=== PATIENT | female | born 1950 | race Caucasian/White ===

== ENCOUNTER 2021-11-03 19:45 | Inpatient (IN) | payer MEDICARE ==
[~2021-11-03] VITALS: Ht 157.5 cm; Wt 58.5 kg
[2021-11-03] MEDS ORDERED: IV NORMAL SALINE 1000ML BAG 1,000 ML IV ONE (20:00)
--- NOTE | 2021-11-03 20:33 | PHYS DOC ---
Past Medical History Additional Past Medical Histor: SCOLIOSIS (ALANNA BURCH APRN) Past Surgical History: Other Additional Past Surgical Histo: PATIENT WILL NOT ANSWER QUESTIONS (ALANNA BURCH APRN) Smoking Status: Unknown if ever smoked Alcohol Use: None Drug Use: None (ALANNA BURCH APRN) General Adult EDM: Chief Complaint: WEAKNESS/GENERALIZED HPI: HPI: Patient is a 70-year-old female who presents today via [facility] for weakness. According to EMS the neighbors had called 911 for a wellness check of this patient, they states that she lives at home with her 43-year-old son who has disabled, and they had not seen her for a while, EMS states the house was incredibly filthy trash and the patient was very unkept. According to the patient who is reluctant to answer questions she has been unable to get herself up out of bed, or do any basic ADLs. Nurses spent at least 45 minutes cleaning the patient up due to the urine and feces that was on the patient. Patient has multiple areas of pressure ulcers, she also has some generalized weakness and she states she is unable to get up. Patient reports the only past medical history she has is scoliosis, she states she does not know who her primary care physician is nor when she saw her last. (ALANNA BURCH VALIDATION ANALYST) Review of Systems: Review of Systems: Constitutional: Denies fever or chills. [] Eyes: Denies change in visual acuity. [] HENT: Denies nasal congestion or sore throat. [] Respiratory: Denies cough or shortness of breath. [] Cardiovascular: Denies chest pain or edema. [] GI: Denies abdominal pain, nausea, vomiting, bloody stools or diarrhea. [] : Denies dysuria. [] Musculoskeletal: Generalized weakness Integument: Denies rash. [] Neurologic: Denies headache, focal weakness or sensory changes. [] Endocrine: Denies polyuria or polydipsia. [] Lymphatic: Denies swollen glands. [] Psychiatric: Denies depression or anxiety. [] (ALANNA BURCH APRN) Heart Score: C/O Chest Pain: No Risk Factors: Risk Factors: DM, Current or recent (<one month) smoker, HTN, HLP, family history of CAD, obesity. Risk Scores: Score 0 - 3: 2.5% MACE over next 6 weeks - Discharge Home Score 4 - 6: 20.3% MACE over next 6 weeks - Admit for Clinical Observation Score 7 - 10: 72.7% MACE over next 6 weeks - Early Invasive Strategies (ALANNA BURCH APRN) Current Medications: Current Medications Medications (Trade) Dose Ordered Sig/Kaleigh Start Time Stop Time Status Last Admin Dose Admin Sodium Chloride 1,000 ml @ 999 mls/hr 1X ONCE 11/03/21 20:00 11/03/21 21:00 UNV (ALANNA BRUCH APRN) Physical Exam: PE: Constitutional: Frail elderly appearing female in moderate distress with unkept HENT: Normocephalic, atraumatic, bilateral external ears normal, oropharynx dry, no oral exudates, nose normal. [] Eyes: PERRLA, EOMI, conjunctiva normal, no discharge. [] Neck: Normal range of motion, no tenderness, no stridor. [] Cardiovascular:Heart rate regular rhythm, no murmur [] Lungs & Thorax: Bilateral breath sounds clear to auscultation [] Abdomen: Bowel sounds normal, soft, no tenderness, no masses, no pulsatile m asses. [] Skin: Patient has multiple areas on her body of pressure wound she has 1 on her right upper arm, her back area has multiple areas of pressure wounds that are not early stages they do not john with pressure, her FAREED area is excoriated and red and bleeding after being cleaned up from dried feces and urine, her feet have skin that was peeled away when they took off her socks, that is oozing. Back: No tenderness, no CVA tenderness. [] Extremities: Patient moves all extremities she has 2+ pitting edema in her legs up to mid mid calf, 1+ peripheral pulses patient's muscle tone is poor Neurologic: Alert and oriented X 3, normal motor function, normal sensory functi on, no focal deficits noted. [] Psychologic: Affect normal, judgement normal, mood normal. [] (ALANNA BURCH APRN) Current Patient Data: Labs: Laboratory Tests Test 11/03/21 20:28 White Blood Count 7.2 x10^3/uL Red Blood Count 3.18 x10^6/uL Hemoglobin 6.2 g/dL Hematocrit 20.2 % Mean Corpuscular Volume 63 fL Mean Corpuscular Hemoglobin 19 pg Mean Corpuscular Hemoglobin Concent 31 g/dL Red Cell Distribution Width 19.1 % Platelet Count 627 x10^3/uL Neutrophils (%) (Auto) 78 % Lymphocytes (%) (Auto) 14 % Monocytes (%) (Auto) 7 % Eosinophils (%) (Auto) 1 % Basophils (%) (Auto) 1 % Neutrophils # (Auto) 5.6 x10^3/uL Lymphocytes # (Auto) 1.0 x10^3/uL Monocytes # (Auto) 0.5 x10^3/uL Eosinophils # (Auto) 0.1 x10^3/uL Basophils # (Auto) 0.1 x10^3/uL Platelet Estimate Increased Hypochromasia Marked Poikilocytosis Slight Anisocytosis Slight Microcytosis Marked Sodium Level 141 mmol/L Potassium Level 4.1 mmol/L Chloride Level 107 mmol/L Carbon Dioxide Level 21 mmol/L Anion Gap 13 Blood Urea Nitrogen 60 mg/dL Creatinine 2.3 mg/dL Estimated GFR (Cockcroft-Gault) 20.9 BUN/Creatinine Ratio 26 Glucose Level 67 mg/dL Lactic Acid Level 1.4 mmol/L Calcium Level 9.0 mg/dL Total Bilirubin 0.2 mg/dL Aspartate Amino Transf (AST/SGOT) 21 U/L Alanine Aminotransferase (ALT/SGPT) 11 U/L Alkaline Phosphatase 62 U/L Creatine Kinase 191 U/L Troponin I High Sensitivity 13 ng/L [id number]-Type Natriuretic Peptide 1072 pg/mL Total Protein 6.7 g/dL Albumin 2.3 g/dL Albumin/Globulin Ratio 0.5 Current Medications Medications (Trade) Dose Ordered Sig/Kaleigh Route PRN Reason Start Time Stop Time Status Last Admin Dose Admin Sodium Chloride 1,000 ml @ 999 mls/hr 1X ONCE IV 11/03/21 20:00 11/03/21 21:31 DC Sodium Chloride 1,000 ml @ 75 mls/hr [id number] IV 11/03/21 22:00 11/04/21 21:59 Vital Signs: Vital Signs Date Time Temp Pulse Resp B/P (MAP) Pulse Ox O2 Delivery O2 Flow Rate FiO2 11/03/21 20:01 98.8 74 16 137/67 (90) 99 Room Air 98.8 Vital Signs Date Time Temp Pulse Resp B/P (MAP) Pulse Ox O2 Delivery O2 Flow Rate FiO2 11/03/21 20:01 98.8 74 16 137/67 (90) 99 Room Air 98.8 (ALANNA BURCH APRN) EKG: EKG: [] (ALANNA BURCH APRN) Radiology/Procedures: Radiology/Procedures: REASON: weakness, DIFFICULTY COOPERATING, UNABLE TO LAY ON BACK PROCEDURE: CT HEAD WO CONTRAST Exam: CT head INDICATION: Weakness, difficulty TECHNIQUE: Sequential axial images through the head were obtained without the administration of IV contrast. Exposure: One or more of the following in the visualized dose reduction techniques were utilized for this examination: 1. Automated exposure control 2. Adjustment of the MA and/or KV according to patient size 3. Use of iterative of reconstructive technique Comparisons: None FINDINGS: No focal parenchymal lesion or hemorrhage is identified. There is no midline shift or sulcal effacement. No acute vascular territory infarction is identified. Dillon-white distinction is preserved. The ventricular system is within normal limits without compression hy drocephalus. The basal cisterns are well maintained. The visualized portions of the paranasal sinuses and mastoid air cells are well- pneumatized. No acute fractures. IMPRESSION: No acute intracranial abnormality. Electronically signed by: Justin Oliveros MD (11/03/2021 9:40 PM) HAYDE[] REASON: weakness PROCEDURE: PORTABLE CHEST 1V Exam: Chest one view INDICATION: Weakness, pain TECHNIQUE: Frontal view of the chest Comparisons: None FINDINGS: The cardiomediastinal silhouette and pulmonary vessels are within normal limits. Patchy airspace disease at the right lung base. No pleural effusion IMPRESSION: Right basilar airspace disease. Electronically signed by: Justin Oliveros MD (11/03/2021 10:22 PM) AMRYALEC (ALANNA BURCH APRN) Course & Med Decision Making: Course & Med Decision Making Pertinent Labs and Imaging studies reviewed. (See chart for details) [address] Sherwood regarding this patient and he is agreeable to admitting this patient for further evaluation and management of her anemia, her acute renal injury and failure to thrive. (ALANNA BURCH APRN) Dragon Disclaimer: Dragon Disclaimer: This electronic medical record was generated, in whole or in part, using a voice recognition dictation system. (ALANNA BURCH APRN) Departure Departure Impression: Primary Impression: Anemia Qualified Codes: D64.9 - Anemia, unspecified Additional Impressions: Acute renal injury Failure to thrive in adult Weakness generalized Disposition: ADMITTED INPATIENT Admitting Physician: TIANNA (ALANNA BURCH APRN) Condition: STABLE Attending Signature Attending Signature I have reviewed the PA/ADDICTIONS COUNSELOR's note and plan of care. I was available for consultation as needed during the patient's visit in the emergency department. I agree with the clinical impression, plan, and disposition. (NEEL BLUE DO) ALANNA BURCH APRN November 03, 2021 20:33 NEEL BLUE DO November 03, 2021 23:58
[2021-11-03 20:41] LABS: BASO # 0.1 x10^3/uL (0.0-0.2); BASO % 1 % (0-3); EOS # 0.1 x10^3/uL (0.0-0.7); EOS % 1 % (0-3); HEMATOCRIT 20.2 % (36.0-47.0); LYMPH % 14 % (24-48); MEAN CORPUSCULAR HEMOGLOBIN 19 pg (25-35); MEAN CORPUSCULAR HGB CONC 31 g/dL (31-37); MEAN CORPUSCULAR VOLUME 63 fL (79-100); MONO # 0.5 x10^3/uL (0.0-1.1); MONO % 7 % (0-9); NEUT # 5.6 x10^3/uL (1.8-7.7); NEUT % 78 % (31-73); PLATELET COUNT 627 x10^3/uL (140-400); RED BLOOD COUNT 3.18 x10^6/uL (3.50-5.40); RED CELL DISTRIBUTION WIDTH 19.1 % (11.5-14.5); WHITE BLOOD COUNT 7.2 x10^3/uL (4.0-11.0)
[2021-11-03 20:46] LABS: HEMOGLOBIN 6.2 g/dL (12.0-15.5)
[2021-11-03 20:51] LABS: CREATININE 2.3 mg/dL (0.6-1.0); GFR 20.9; POTASSIUM 4.1 mmol/L (3.5-5.1)
[2021-11-03 20:58] LABS: ALBUMIN 2.3 g/dL (3.4-5.0); ALBUMIN/GLOBULIN RATIO 0.5 (1.0-1.7); TOTAL BILIRUBIN 0.2 mg/dL (0.2-1.0); TOTAL PROTEIN 6.7 g/dL (6.4-8.2)
[2021-11-03 20:59] LABS: ANISOCYTOSIS SLIGHT; HYPOCHROMIA MARKED; MICROCYTOSIS MARKED; PLT ESTIMATE INCREASED (ADEQUATE); POIKILOCYTOSIS SLIGHT
--- NOTE | 2021-11-03 21:42 | RAD ---
Exam: CT head INDICATION: Weakness, difficulty TECHNIQUE: Sequential axial images through the head were obtained without the administration of IV co ntrast. Exposure: One or more of the following in the visualized dose reduction techniques were utilized for this examination: 1. Automated exposure control 2. Adjustment of the MA and/or KV according to patient size 3. Use of iterative of reconstructive technique Comparisons: None FINDINGS: No focal parenchymal lesion or hemorrhage is identified. There is no midline shift or sulcal effaceme nt. No acute vascular territory infarction is identified. Dillon-white distinction is preserved. The ventricular system is within normal limits without compression hydrocephalus. The basal cisterns are well maintained. The visualized portions of the paranasal sinuses and mastoid air cells are well-pneumatized. No acute fractures. IMPRESSION: No acute intracranial abnormality. Electronically signed by: Justin Oliveros MD (11/03/2021 9:40 PM) HAYDE
--- NOTE | 2021-11-03 22:24 | RAD ---
Exam: Chest one view INDICATION: Weakness, pain TECHNIQUE: Frontal view of the chest Comparisons: None FINDINGS: The cardiomediastinal silhouette and pulmonary vessels are within normal limits. Patchy airspace disease at the right lung base. No pleural effusion IMPRESSION: Right basilar airspace disease. Electronically signed by: Justin Oliveros MD (11/03/2021 10:22 PM) HAYDE
[2021-11-03 22:45] LABS: PROTHROMBIN TIME PATIENT 14.2 SEC (11.7-14.0)
[2021-11-03] MEDS ORDERED: cefTRIAXone IV Push 1 GM VIAL. IVP ONE (23:00)
--- NOTE | 2021-11-03 23:48 | EKG ---
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
[2021-11-04] MEDS: IV NORMAL SALINE 1000ML BAG 1,000 ML IV SCH ×2 (01:46→13:12)
[2021-11-04] MEDS ORDERED: [UNRECOGNIZED DRUG - CODE] PO (02:03)
[2021-11-04 02:30] VITALS: BP 131/84
[2021-11-04 07:00] VITALS: BP 119/69
[2021-11-04] MEDS: oxyCODONE/APAP 5/325 1 TAB TABLET PO PRN ×2 (10:44→22:13)
[2021-11-04] MEDS ORDERED: ELECTROLYTE (NON-ICU) PROTOCOL. MC PRN (10:45)
[2021-11-04 11:00] VITALS: BP 110/57
[2021-11-04 11:49] LABS: BASO # 0.1 x10^3/uL (0.0-0.2); BASO % 1 % (0-3); EOS # 0.1 x10^3/uL (0.0-0.7); EOS % 2 % (0-3); HEMATOCRIT 22.3 % (36.0-47.0); HEMOGLOBIN 7.1 g/dL (12.0-15.5); LYMPH # 0.7 x10^3/uL (1.0-4.8); LYMPH % 9 % (24-48); MEAN CORPUSCULAR HEMOGLOBIN 21 pg (25-35); MEAN CORPUSCULAR HGB CONC 32 g/dL (31-37); MEAN CORPUSCULAR VOLUME 66 fL (79-100); MONO # 0.4 x10^3/uL (0.0-1.1); MONO % 6 % (0-9); NEUT # 6.6 x10^3/uL (1.8-7.7); NEUT % 83 % (31-73); PLATELET COUNT 534 x10^3/uL (140-400); RED BLOOD COUNT 3.38 x10^6/uL (3.50-5.40); RED CELL DISTRIBUTION WIDTH 22.3 % (11.5-14.5)
[2021-11-04 12:03] LABS: ALBUMIN 1.9 g/dL (3.4-5.0); ALBUMIN/GLOBULIN RATIO 0.5 (1.0-1.7); CREATININE 2.4 mg/dL (0.6-1.0); GFR 19.9; POTASSIUM 4.2 mmol/L (3.5-5.1); TOTAL BILIRUBIN 0.2 mg/dL (0.2-1.0); TOTAL PROTEIN 5.7 g/dL (6.4-8.2)
--- NOTE | 2021-11-04 12:32 | PDOC2 ---
CONSULT Date of Consult Date of Consult DATE: 11/04/21 TIME: 12:19 Reason for Consult Reason for Consult: Acute renal injury Referring Physician Referring Physician: Kalina Identification/Chief Complaint Chief Complaint Patient cannot relate Source Source: Chart review History of Present Illness Reason for Visit: Patient is 70-year-old female who apparently has not seen physicians in a while. She does not know why she was brought to the hospital but said she was having difficulty getting around. I have reviewed the ER note which shows that she was brought by [facility] for weakness. Neighbors had called a wellness check since she lives with her 43-year-old disabled son. And EMS arrived she was unable to get up off the floor was extremely weak and unkempt. She is noted to have multiple areas of pressure sores. She claims she takes ibuprofen and Tylenol at times. She is not very cooperative with the history at this time and is more preoccupied with eating her lunch. She cannot tell me when she last had labs done. She was admitted h ere with a creatinine of 2.4 BUN of 50 and an albumin of 1.9. She is not known to have any kidney problems that she relates at this time Past Medical History Past Medical History Scoliosis and arthritis Past Surgical History Past Surgical History Patient does not relate any prior surgeries Family History Family History Patient does not relate any known family history of kidney issues Social History Lives: with Family Current Problem List Problem List Problems Medical Problems: (1) Acute renal injury Status: Acute (2) Anemia Status: Acute (3) Failure to thrive in adult Status: Acute (4) Weakness generalized Status: Acute Current Medications Current Medications Current Medications Sodium Chloride 1,000 ml @ 999 mls/hr 1X ONCE IV Last administered on 11/03/21at 21:00; Start 11/03/21 at 20:00; Stop 11/03/21 at 21:31; Status DC Sodium Chloride 1,000 ml @ 75 mls/hr [id number] IV Last administered on 11/04/21at 01:46; Start 11/03/21 at 22:00; Stop 11/04/21 at 21:59 Ceftriaxone Sodium (Rocephin) 1 gm 1X ONCE IVP Last administered on 11/04/21at 01:46; Start 11/03/21 at 23:00; Stop 11/03/21 at 23:01; Status DC Ceftriaxone Sodium (Rocephin) 1 gm Q24H IVP ; Start 11/04/21 at 11:00 Doxycycline Hyclate (Vibra-Tab) 100 mg BID PO ; Start 11/04/21 at 11:00 Ondansetron HCl (Zofran) 4 mg PRN Q6HRS PRN IVP NAUSEA/VOMITING; Start 11/04/21 at 10:45 Calcium Carbonate/ Glycine (Tums) 500 mg PRN Q3HRS PRN PO UPSET STOMACH; Start 11/04/21 at 10:45 Info (Non-Icu Electrolyte Protocol) 1 ea PRN DAILY PRN MC SEE COMMENTS; Start 11/04/21 at 10:45 Oxycodone/ Acetaminophen (Percocet 5/325) 1 tab PRN Q4HRS PRN PO MILD PAIN, 1ST CHOICE Last administered on 11/04/21at 10:44; Start 11/04/21 at 10:45 Oxycodone/ Acetaminophen (Percocet 5/325) 2 tab PRN Q4HRS PRN PO MODERATE PAIN, SEVERE PAIN; Start 11/04/21 at 10:45 Acetaminophen (Tylenol) 650 mg PRN Q6HRS PRN PO Headaches, Temp > 101.5F; Sta rt 11/04/21 at 10:45 Senna/Docusate Sodium (Senna Plus) 1 tab BID PO ; Start 11/04/21 at 11:00 Active Scripts Active Reported Advil Dual Action 250Mg-125Mg (Ibuprofen/Acetaminophen) 1 Each Tablet 1 Each PO TID PRN PRN Allergies Allergies: Coded Allergies: No Known Drug Allergies (Unverified , 11/04/21) ROS Review of System Unable to reliably obtain from the patient given lack of cooperation with history. She however denies nausea vomiting or diarrhea per se. Physical Exam Physical Exam General Appearance: Awake Alert Oriented x ? In no Distress, thin and cachectic white female Eyes: VIsion Unchanged Conjunctiva Normal EN: No EN Drainage Mucous Memb. moist (eating/being fed lunch) Neck: min JVD + JVP Supple no palpable thyromegaly CVS: S1 S2 possible murmur No Gallop No Rub + Edema Resp: no Rales no Rhonchi no Acc. Muscle use GI: BAS +ve NO Bruit Non Tender Non Distended : no CVA tenderness; no Suprapubic Tenderness SKIN: no petechial rashes Breast Exam deferred Mu.Sk: Limited ROM, presumed decreased strength significant muscle Atrophy Heme: Unable to palpate Obvious LAD no palpable splenomegaly NEURO: Decreased strength, adequate Tone Cranial Nerves II - XII grossly intact as best as I could tell given limited cooperation Psych: ? Depressed no Active hallucination Vital Signs Vital Signs Date Time Temp Pulse Resp B/P (MAP) Pulse Ox O2 Delivery O2 Flow Rate FiO2 11/04/21 10:44 96 Room Air 11/04/21 07:00 97.7 83 18 119/69 (86) 97.7 Assessment & Plan Presumed acute kidney injury. Will check sonogram and UA specimen. She remains on IV fluids at this time current FLuid and E-lyte status does not necessitate emergent need for Dialysis. CPK was normal as noted. NSAIDs may have contributed Intravascular volume depletion cannot be ruled out IV fluids will be ordered. May need IV albumin also Severe hypoalbuminemia we will check urine for nephrotic syndrome Severe anemia at presentation: May need evaluation for underlying malignancy. Consider hematology and/or GI evaluation given severe microcytosis. Presume iron deficiency anemia Labs Labs Laboratory Tests Test 11/03/21 20:28 11/03/21 22:20 11/04/21 11:35 White Blood Count 7.2 x10^3/uL (4.0-11.0) 8.0 x10^3/uL (4.0-11.0) Red Blood Count 3.18 x10^6/uL (3.50-5.40) 3.38 x10^6/uL (3.50-5.40) Hemoglobin 6.2 g/dL (12.0-15.5) 7.1 g/dL (12.0-15.5) Hematocrit 20.2 % (36.0-47.0) 22.3 % (36.0-47.0) Mean Corpuscular Volume 63 fL (79-100) 66 fL (79-100) Mean Corpuscular Hemoglobin 19 pg (25-35) 21 pg (25-35) Mean Corpuscular Hemoglobin Concent 31 g/dL (31-37) 32 g/dL (31-37) Red Cell Distribution Width 19.1 % (11.5-14.5) 22.3 % (11.5-14.5) Platelet Count 627 x10^3/uL (140-400) 534 x10^3/uL (140-400) Neutrophils (%) (Auto) 78 % (31-73) 83 % (31-73) Lymphocytes (%) (Auto) 14 % (24-48) 9 % (24-48) Monocytes (%) (Auto) 7 % (0-9) 6 % (0-9) Eosinophils (%) (Auto) 1 % (0-3) 2 % (0-3) Basophils (%) (Auto) 1 % (0-3) 1 % (0-3) Neutrophils # (Auto) 5.6 x10^3/uL (1.8-7.7) 6.6 x10^3/uL (1.8-7.7) Lymphocytes # (Auto) 1.0 x10^3/uL (1.0-4.8) 0.7 x10^3/uL (1.0-4.8) Monocytes # (Auto) 0.5 x10^3/uL (0.0-1.1) 0.4 x10^3/uL (0.0-1.1) Eosinophils # (Auto) 0.1 x10^3/uL (0.0-0.7) 0.1 x10^3/uL (0.0-0.7) Basophils # (Auto) 0.1 x10^3/uL (0.0-0.2) 0.1 x10^3/uL (0.0-0.2) Platelet Estimate Increased (ADEQUATE) Hypochromasia Marked Poikilocytosis Slight Anisocytosis Slight Microcytosis Marked Sodium Level 141 mmol/L (136-145) 142 mmol/L (136-145) Potassium Level 4.1 mmol/L (3.5-5.1) 4.2 mmol/L (3.5-5.1) Chloride Level 107 mmol/L (98-107) 110 mmol/L (98-107) Carbon Dioxide Level 21 mmol/L (21-32) 23 mmol/L (21-32) Anion Gap 13 (6-14) 9 (6-14) Blood Urea Nitrogen 60 mg/dL (7-20) 50 mg/dL (7-20) Creatinine 2.3 mg/dL (0.6-1.0) 2.4 mg/dL (0.6-1.0) Estimated GFR (Cockcroft-Gault) 20.9 19.9 BUN/Creatinine Ratio 26 (6-20) 21 (6-20) Glucose Level 67 mg/dL (70-99) 145 mg/dL (70-99) Lactic Acid Level 1.4 mmol/L (0.4-2.0) Calcium Level 9.0 mg/dL (8.5-10.1) 8.0 mg/dL (8.5-10.1) Total Bilirubin 0.2 mg/dL (0.2-1.0) 0.2 mg/dL (0.2-1.0) Aspartate Amino Transf (AST/SGOT) 21 U/L (15-37) 18 U/L (15-37) Alanine Aminotransferase (ALT/SGPT) 11 U/L (14-59) 12 U/L (14-59) Alkaline Phosphatase 62 U/L (46-116) 63 U/L (46-116) Creatine Kinase 191 U/L (26-192) Troponin I High Sensitivity 13 ng/L (4-50) BD-Yut-P-Type Natriuretic Peptide 1072 pg/mL (0-124) Total Protein 6.7 g/dL (6.4-8.2) 5.7 g/dL (6.4-8.2) Albumin 2.3 g/dL (3.4-5.0) 1.9 g/dL (3.4-5.0) Albumin/Globulin Ratio 0.5 (1.0-1.7) 0.5 (1.0-1.7) Prothrombin Time 14.2 SEC (11.7-14.0) Prothromb Time International Ratio 1.1 (0.8-1.1) Laboratory Tests Test 11/03/21 20:28 11/03/21 22:20 11/04/21 11:35 White Blood Count 7.2 x10^3/uL (4.0-11.0) 8.0 x10^3/uL (4.0-11.0) Red Blood Count 3.18 x10^6/uL (3.50-5.40) 3.38 x10^6/uL (3.50-5.40) Hemoglobin 6.2 g/dL (12.0-15.5) 7.1 g/dL (12.0-15.5) Hematocrit 20.2 % (36.0-47.0) 22.3 % (36.0-47.0) Mean Corpuscular Volume 63 fL (79-100) 66 fL (79-100) Mean Corpuscular Hemoglobin 19 pg (25-35) 21 pg (25-35) Mean Corpuscular Hemoglobin Concent 31 g/dL (31-37) 32 g/dL (31-37) Red Cell Distribution Width 19.1 % (11.5-14.5) 22.3 % (11.5-14.5) Platelet Count 627 x10^3/uL (140-400) 534 x10^3/uL (140-400) Neutrophils (%) (Auto) 78 % (31-73) 83 % (31-73) Lymphocytes (%) (Auto) 14 % (24-48) 9 % (24-48) Monocytes (%) (Auto) 7 % (0-9) 6 % (0-9) Eosinophils (%) (Auto) 1 % (0-3) 2 % (0-3) Basophils (%) (Auto) 1 % (0-3) 1 % (0-3) Neutrophils # (Auto) 5.6 x10^3/uL (1.8-7.7) 6.6 x10^3/uL (1.8-7.7) Lymphocytes # (Auto) 1.0 x10^3/uL (1.0-4.8) 0.7 x10^3/uL (1.0-4.8) Monocytes # (Auto) 0.5 x10^3/uL (0.0-1.1) 0.4 x10^3/uL (0.0-1.1) Eosinophils # (Auto) 0.1 x10^3/uL (0.0-0.7) 0.1 x10^3/uL (0.0-0.7) Basophils # (Auto) 0.1 x10^3/uL (0.0-0.2) 0.1 x10^3/uL (0.0-0.2) Platelet Estimate Increased (ADEQUATE) Hypochromasia Marked Poikilocytosis Slight Anisocytosis Slight Microcytosis Marked Sodium Level 141 mmol/L (136-145) 142 mmol/L (136-145) Potassium Level 4.1 mmol/L (3.5-5.1) 4.2 mmol/L (3.5-5.1) Chloride Level 107 mmol/L (98-107) 110 mmol/L (98-107) Carbon Dioxide Level 21 mmol/L (21-32) 23 mmol/L (21-32) Anion Gap 13 (6-14) 9 (6-14) Blood Urea Nitrogen 60 mg/dL (7-20) 50 mg/dL (7-20) Creatinine 2.3 mg/dL (0.6-1.0) 2.4 mg/dL (0.6-1.0) Estimated GFR (Cockcroft-Gault) 20.9 19.9 BUN/Creatinine Ratio 26 (6-20) 21 (6-20) Glucose Level 67 mg/dL (70-99) 145 mg/dL (70-99) Lactic Acid Level 1.4 mmol/L (0.4-2.0) Calcium Level 9.0 mg/dL (8.5-10.1) 8.0 mg/dL (8.5-10.1) Total Bilirubin 0.2 mg/dL (0.2-1.0) 0.2 mg/dL (0.2-1.0) Aspartate Amino Transf (AST/SGOT) 21 U/L (15-37) 18 U/L (15-37) Alanine Aminotransferase (ALT/SGPT) 11 U/L (14-59) 12 U/L (14-59) Alkaline Phosphatase 62 U/L (46-116) 63 U/L (46-116) Creatine Kinase 191 U/L (26-192) Troponin I High Sensitivity 13 ng/L (4-50) VR-Pet-P-Type Natriuretic Peptide 1072 pg/mL (0-124) Total Protein 6.7 g/dL (6.4-8.2) 5.7 g/dL (6.4-8.2) Albumin 2.3 g/dL (3.4-5.0) 1.9 g/dL (3.4-5.0) Albumin/Globulin Ratio 0.5 (1.0-1.7) 0.5 (1.0-1.7) Prothrombin Time 14.2 SEC (11.7-14.0) Prothromb Time International Ratio 1.1 (0.8-1.1) Review All relevant outside records, renal labs, imaging studies, telemetry/EKG's were reviewed. Images Images FINDINGS: The cardiomediastinal silhouette and pulmonary vessels are within normal limits. Patchy airspace disease at the right lung base. No pleural effusion IMPRESSION: Right basilar airspace disease. DILCIA TIPTON MD November 04, 2021 12:32
[2021-11-04] MEDS ORDERED: MAGNESIUM SULFATE 2GM 50 ML IV PRN (12:45)
[2021-11-04] MEDS: DOXYCYCLINE HYCLATE 100 MG TABLET PO SCH ×2 (13:05→22:12)
[2021-11-04] MEDS: SENNOSIDES/DOCUSATE 8.6/50MG TABLET. PO SCH ×2 (13:05→22:13)
[2021-11-04] MEDS: cefTRIAXone IV Push 1 GM VIAL. IVP SCH (13:07)
--- NOTE | 2021-11-04 13:28 | PDOC1 ---
History and Physical Date of Service: DOS: DATE: 11/04/21 TIME: 13:08 Chief Complaint: Chief Complain: Anemia, FTT History of Present Illness: HPI: Patient really not giving any sort of meaningful history to me this morning HPI from emergency room below Patient is a 70-year-old female who presents today via [facility] for weakness. According to EMS the neighbors had called 911 for a wellness check of this patient, they states that she lives at home with her 43-year-old son who has disabled, and they had not seen her for a while, EMS states the house was incredibly filthy trash and the patient was very unkept. According to the patient who is reluctant to answer questions she has been unable to get herself up out of bed, or do any basic ADLs. Nurses spent at least 45 minutes cleaning the patient up due to the urine and feces that was on the patient. Patient has multiple areas of pressure ulcers, she also has some generalized weakness and she states she is unable to get up. Patient reports the only past medical history she has is scoliosis, she states she does not know who her primary care physician is nor when she saw her last. When I saw the patient she was very withdrawn. Really not answering my questions she is looking out the window. Really would say her hip hurt. Informed her of plan of treating with IV antibiotics therapy. Said she would think about if she would go to rehab if recommended. Past Medical/Surgical History: PMH/PSH: Additional Past Medical Histor: SCOLIOSIS Additional Past Surgical Histo: PATIENT WILL NOT ANSWER QUESTIONS Smoking Status: denies Alcohol Use: None Drug Use: Non Allergies: Allergies: Coded Allergies: No Known Drug Allergies (Unverified , 11/04/21) Family History: Family History: patient denies knowing of any Current Medications: Current Medications Current Medications Sodium Chloride 1,000 ml @ 999 mls/hr 1X ONCE IV Last administered on 11/03/21at 21:00; Start 11/03/21 at 20:00; Stop 11/03/21 at 21:31; Status DC Sodium Chloride 1,000 ml @ 75 mls/hr [id number] IV Last administered on 11/04/21at 01:46; Start 11/03/21 at 22:00; Stop 11/04/21 at 21:59 Ceftriaxone Sodium (Rocephin) 1 gm 1X ONCE IVP Last administered on 11/04/21at 01:46; Start 11/03/21 at 23:00; Stop 11/03/21 at 23:01; Status DC Ceftriaxone Sodium (Rocephin) 1 gm Q24H IVP ; Start 11/04/21 at 11:00 Doxycycline Hyclate (Vibra-Tab) 100 mg BID PO ; Start 11/04/21 at 11:00 Ondansetron HCl (Zofran) 4 mg PRN Q6HRS PRN IVP NAUSEA/VOMITING; Start 11/04/21 at 10:45 Calcium Carbonate/ Glycine (Tums) 500 mg PRN Q3HRS PRN PO UPSET STOMACH; Start 11/04/21 at 10:45 Info (Non-Icu Electrolyte Protocol) 1 ea PRN DAILY PRN MC SEE COMMENTS; Start 11/04/21 at 10:45 Oxycodone/ Acetaminophen (Percocet 5/325) 1 tab PRN Q4HRS PRN PO MILD PAIN, 1ST CHOICE Last administered on 11/04/21at 10:44; Start 11/04/21 at 10:45 Oxycodone/ Acetaminophen (Percocet 5/325) 2 tab PRN Q4HRS PRN PO MODERATE PAIN, SEVERE PAIN; Start 11/04/21 at 10:45 Acetaminophen (Tylenol) 650 mg PRN Q6HRS PRN PO Headaches, Temp > 101.5F; Start 11/04/21 at 10:45 Senna/Docusate Sodium (Senna Plus) 1 tab BID PO ; Start 11/04/21 at 11:00 Magnesium Sulfate 50 ml @ 25 mls/hr PRN DAILY PRN IV for Mag < 1.7 on am labs; Start 11/04/21 at 12:45 Active Scripts Active Reported Advil Dual Action 250Mg-125Mg (Ibuprofen/Acetaminophen) 1 Each Tablet 1 Each PO TID PRN PRN ROS: Review of Systems Review of System Other than hip pain patient refused to answer most questions Physical Exam: Vital Signs: Vital Signs Date Time Temp Pulse Resp B/P (MAP) Pulse Ox O2 Delivery O2 Flow Rate FiO2 11/04/21 11:00 99.4 74 20 110/57 (74) 95 Room Air 99.4 Physcial Exam: GEN: No apparent distress. Alert and oriented HEENT: Normal cephalic, atraumatic, external auditory canals are patent EYES: Extraocular muscles are intact, pupil are equally round and reactive to light and accommodation MUSCULOSKELETAL: Well developed , well nourished, good range of motion ENDOCRINE: No thyromegaly was palpated LYMPHATICS: No cervical chain or axillary nodes were noted HEMATOPOIETIC: No bruising NECK: Supple, no JVD, no thyromegaly was noted LUNGS: Clear to auscultation in all lung chapman without rhonchi or wheezing HEART: RRR, S!, S2 present. Peripheral pulses intact, no obvious murmurs noted ABDOMEN: Soft, nontender. Positive bowel sounds, no organomegaly, normal bowel sounds EXTREMITIES: Without clubbing, cyanosis, or edema. Pedal pulses intact. Negative Homans sign NEUROLOGIC: Normal speech and tone. A&O x 3, moves all extremities, no obvious focal deficits PSYCHIATRIC: Normal affect, normal mood. Stable SKIN: No ulcerations or rashes, good skin turgor, no jaundice VASCULAR: Good capillary refill, neurovascular bundle appears to be intact Labs: Labs: Laboratory Tests Test 11/03/21 20:28 11/03/21 22:20 11/04/21 11:35 White Blood Count 7.2 x10^3/uL (4.0-11.0) 8.0 x10^3/uL (4.0-11.0) Red Blood Count 3.18 x10^6/uL (3.50-5.40) 3.38 x10^6/uL (3.50-5.40) Hemoglobin 6.2 g/dL (12.0-15.5) 7.1 g/dL (12.0-15.5) Hematocrit 20.2 % (36.0-47.0) 22.3 % (36.0-47.0) Mean Corpuscular Volume 63 fL (79-100) 66 fL (79-100) Mean Corpuscular Hemoglobin 19 pg (25-35) 21 pg (25-35) Mean Corpuscular Hemoglobin Concent 31 g/dL (31-37) 32 g/dL (31-37) Red Cell Distribution Width 19.1 % (11.5-14.5) 22.3 % (11.5-14.5) Platelet Count 627 x10^3/uL (140-400) 534 x10^3/uL (140-400) Neutrophils (%) (Auto) 78 % (31-73) 83 % (31-73) Lymphocytes (%) (Auto) 14 % (24-48) 9 % (24-48) Monocytes (%) (Auto) 7 % (0-9) 6 % (0-9) Eosinophils (%) (Auto) 1 % (0-3) 2 % (0-3) Basophils (%) (Auto) 1 % (0-3) 1 % (0-3) Neutrophils # (Auto) 5.6 x10^3/uL (1.8-7.7) 6.6 x10^3/uL (1.8-7.7) Lymphocytes # (Auto) 1.0 x10^3/uL (1.0-4.8) 0.7 x10^3/uL (1.0-4.8) Monocytes # (Auto) 0.5 x10^3/uL (0.0-1.1) 0.4 x10^3/uL (0.0-1.1) Eosinophils # (Auto) 0.1 x10^3/uL (0.0-0.7) 0.1 x10^3/uL (0.0-0.7) Basophils # (Auto) 0.1 x10^3/uL (0.0-0.2) 0.1 x10^3/uL (0.0-0.2) Platelet Estimate Increased (ADEQUATE) Hypochromasia Marked Poikilocytosis Slight Anisocytosis Slight Microcytosis Marked Sodium Level 141 mmol/L (136-145) 142 mmol/L (136-145) Potassium Level 4.1 mmol/L (3.5-5.1) 4.2 mmol/L (3.5-5.1) Chloride Level 107 mmol/L (98-107) 110 mmol/L (98-107) Carbon Dioxide Level 21 mmol/L (21-32) 23 mmol/L (21-32) Anion Gap 13 (6-14) 9 (6-14) Blood Urea Nitrogen 60 mg/dL (7-20) 50 mg/dL (7-20) Creatinine 2.3 mg/dL (0.6-1.0) 2.4 mg/dL (0.6-1.0) Estimated GFR (Cockcroft-Gault) 20.9 19.9 BUN/Creatinine Ratio 26 (6-20) 21 (6-20) Glucose Level 67 mg/dL (70-99) 145 mg/dL (70-99) Lactic Acid Level 1.4 mmol/L (0.4-2.0) Calcium Level 9.0 mg/dL (8.5-10.1) 8.0 mg/dL (8.5-10.1) Total Bilirubin 0.2 mg/dL (0.2-1.0) 0.2 mg/dL (0.2-1.0) Aspartate Amino Transf (AST/SGOT) 21 U/L (15-37) 18 U/L (15-37) Alanine Aminotransferase (ALT/SGPT) 11 U/L (14-59) 12 U/L (14-59) Alkaline Phosphatase 62 U/L (46-116) 63 U/L (46-116) Creatine Kinase 191 U/L (26-192) Troponin I High Sensitivity 13 ng/L (4-50) [id number]-Type Natriuretic Peptide 1072 pg/mL (0-124) Total Protein 6.7 g/dL (6.4-8.2) 5.7 g/dL (6.4-8.2) Albumin 2.3 g/dL (3.4-5.0) 1.9 g/dL (3.4-5.0) Albumin/Globulin Ratio 0.5 (1.0-1.7) 0.5 (1.0-1.7) Prothrombin Time 14.2 SEC (11.7-14.0) Prothromb Time International Ratio 1.1 (0.8-1.1) Laboratory Tests Test 11/03/21 20:28 11/03/21 22:20 11/04/21 11:35 White Blood Count 7.2 x10^3/uL (4.0-11.0) 8.0 x10^3/uL (4.0-11.0) Red Blood Count 3.18 x10^6/uL (3.50-5.40) 3.38 x10^6/uL (3.50-5.40) Hemoglobin 6.2 g/dL (12.0-15.5) 7.1 g/dL (12.0-15.5) Hematocrit 20.2 % (36.0-47.0) 22.3 % (36.0-47.0) Mean Corpuscular Volume 63 fL (79-100) 66 fL (79-100) Mean Corpuscular Hemoglobin 19 pg (25-35) 21 pg (25-35) Mean Corpuscular Hemoglobin Concent 31 g/dL (31-37) 32 g/dL (31-37) Red Cell Distribution Width 19.1 % (11.5-14.5) 22.3 % (11.5-14.5) Platelet Count 627 x10^3/uL (140-400) 534 x10^3/uL (140-400) Neutrophils (%) (Auto) 78 % (31-73) 83 % (31-73) Lymphocytes (%) (Auto) 14 % (24-48) 9 % (24-48) Monocytes (%) (Auto) 7 % (0-9) 6 % (0-9) Eosinophils (%) (Auto) 1 % (0-3) 2 % (0-3) Basophils (%) (Auto) 1 % (0-3) 1 % (0-3) Neutrophils # (Auto) 5.6 x10^3/uL (1.8-7.7) 6.6 x10^3/uL (1.8-7.7) Lymphocytes # (Auto) 1.0 x10^3/uL (1.0-4.8) 0.7 x10^3/uL (1.0-4.8) Monocytes # (Auto) 0.5 x10^3/uL (0.0-1.1) 0.4 x10^3/uL (0.0-1.1) Eosinophils # (Auto) 0.1 x10^3/uL (0.0-0.7) 0.1 x10^3/uL (0.0-0.7) Basophils # (Auto) 0.1 x10^3/uL (0.0-0.2) 0.1 x10^3/uL (0.0-0.2) Platelet Estimate Increased (ADEQUATE) Hypochromasia Marked Poikilocytosis Slight Anisocytosis Slight Microcytosis Marked Sodium Level 141 mmol/L (136-145) 142 mmol/L (136-145) Potassium Level 4.1 mmol/L (3.5-5.1) 4.2 mmol/L (3.5-5.1) Chloride Level 107 mmol/L (98-107) 110 mmol/L (98-107) Carbon Dioxide Level 21 mmol/L (21-32) 23 mmol/L (21-32) Anion Gap 13 (6-14) 9 (6-14) Blood Urea Nitrogen 60 mg/dL (7-20) 50 mg/dL (7-20) Creatinine 2.3 mg/dL (0.6-1.0) 2.4 mg/dL (0.6-1.0) Estimated GFR (Cockcroft-Gault) 20.9 19.9 BUN/Creatinine Ratio 26 (6-20) 21 (6-20) Glucose Level 67 mg/dL (70-99) 145 mg/dL (70-99) Lactic Acid Level 1.4 mmol/L (0.4-2.0) Calcium Level 9.0 mg/dL (8.5-10.1) 8.0 mg/dL (8.5-10.1) Total Bilirubin 0.2 mg/dL (0.2-1.0) 0.2 mg/dL (0.2-1.0) Aspartate Amino Transf (AST/SGOT) 21 U/L (15-37) 18 U/L (15-37) Alanine Aminotransferase (ALT/SGPT) 11 U/L (14-59) 12 U/L (14-59) Alkaline Phosphatase 62 U/L (46-116) 63 U/L (46-116) Creatine Kinase 191 U/L (26-192) Troponin I High Sensitivity 13 ng/L (4-50) DN-Sov-L-Type Natriuretic Peptide 1072 pg/mL (0-124) Total Protein 6.7 g/dL (6.4-8.2) 5.7 g/dL (6.4-8.2) Albumin 2.3 g/dL (3.4-5.0) 1.9 g/dL (3.4-5.0) Albumin/Globulin Ratio 0.5 (1.0-1.7) 0.5 (1.0-1.7) Prothrombin Time 14.2 SEC (11.7-14.0) Prothromb Time International Ratio 1.1 (0.8-1.1) Assessment/Plan Assessment/Plan Right-sided pneumonia likely bacterial gram-negative, microcytic anemia likely CLAUDIA, adult failure to thrive, CHRISTIANO likely vasomotor, severe malnutrition. Reported history of scoliosis -Concerned neighbors called EMS for wellness check at home. Patient was found covered in feces urine -Brought into the emergency department. Found to be anemic kidney injury pneumonia -No apparent signs of bleeding. Received 1 unit packed red blood cells emergency room. Hemoglobin up to 7.1. Continue to monitor. -Iron studies showing iron deficiency anemia. With active infection we will hold off iron right now and plan to start once infection resolves -Creatinine elevated on presentation. Unknown baseline. Nephrology consult -PT/OT -Nutrition consult -DVT prophylaxis -Rocephin Doxy for presumed pneumonia. Justifications for Admission Other Justification ALMA MCCBAE MD November 04, 2021 13:28
[2021-11-04 15:00] VITALS: BP 84/48
--- NOTE | 2021-11-04 15:34 | RAD ---
EXAM: RENAL ULTRASOUND CLINICAL HISTORY: Acute renal failure/chronic kidney disease COMPARISON: None available. TECHNIQUE: Ultrasound examination of the bilateral kidneys and urinary bladder was performed. FINDINGS: The longitudinal and AP and transverse dimensions of the left kidney are 10.1 cm and 5.4 cm and 6.0 c m respectively. There is severe hydronephrosis of the left kidney. No perinephric fluid collection or renal mass is evident on the left side. The right kidney is not visualized in this study and this ma y be secondary to bowel gas and inferior displacement of the right kidney related to a large right lo be hepatic cyst measuring almost 11 cm in size. The urinary bladder is mildly distended. The lower portion of the urinary bladder is not well visuali zed due to acoustic shadowing. IMPRESSION: Severe hydronephrosis of the left kidney. Right kidney is not visualized in this study. Large almost 11 cm right hepatic cyst. Electronically signed by: Alex Abraham MD (11/04/2021 3:31 PM) [id number]
[2021-11-04 19:43] VITALS: BP 101/63
[2021-11-04] MEDS: LACTOBACILLUS RHAMNOSUS GG 1 CAPSULE. PO SCH (22:12)
[2021-11-04 23:26] VITALS: BP 114/68
[2021-11-05] VITALS (14 sets, daily range): BP systolic 81–124; BP diastolic 39–91
--- NOTE | 2021-11-05 04:02 | NUR ---
Patient informed of need for Stevenson placement, she initially refused, is encouraged to accept, as for the need for UA, culture, and see if she is fully emptying her bladder. The Stevenson was placed at 0335, without incident, milky, cloudy output, 700cc collected in the bag, sample is sent to lab. Stat Lock to left inner, upper thigh,
[2021-11-05 04:05] LABS: BACTERIA,URINE MANY /HPF (0-FEW); WBC,URINE TNTC /HPF (0-4)
[2021-11-05 08:23] LABS: ALBUMIN 1.8 g/dL (3.4-5.0); CALCIUM 7.6 mg/dL (8.5-10.1); GFR 24.6; PHOSPHORUS 2.8 mg/dL (2.6-4.7); POTASSIUM 3.8 mmol/L (3.5-5.1)
[2021-11-05] MEDS: LACTOBACILLUS RHAMNOSUS GG 1 CAPSULE. PO SCH ×2 (09:52→22:54)
[2021-11-05] MEDS: SENNOSIDES/DOCUSATE 8.6/50MG TABLET. PO SCH ×2 (09:52→22:53)
[2021-11-05] MEDS: DOXYCYCLINE HYCLATE 100 MG TABLET PO SCH ×2 (09:53→22:54)
[2021-11-05] MEDS: oxyCODONE/APAP 5/325 1 TAB TABLET PO PRN ×3 (09:53→22:54)
[2021-11-05] MEDS: cefTRIAXone IV Push 1 GM VIAL. IVP SCH (09:53)
--- NOTE | 2021-11-05 10:55 | PDOC ---
[employer] PROGRESS NOTE Date of Service DOS: DATE: 11/05/21 TIME: 10:49 Chief Complaint Chief Complaint Right-sided pneumonia likely bacterial gram-negative, microcytic anemia likely CLAUDIA, adult failure to thrive, CHRISTIANO likely vasomotor, severe malnutrition. Reported history of scoliosis -Concerned neighbors called EMS for wellness check at home. Patient was found covered in feces urine -Brought into the emergency department. Found to be anemic kidney injury pneumonia -No apparent signs of bleeding. Received 1 unit packed red blood cells emergency room. Hemoglobin up to 7.1. Continue to monitor. --> trended back to 6.6 on 11/05 still no signs of bleeding, transfuse 1U; recheck evening hgb; -Iron studies showing iron deficiency anemia. With active infection we will hold off iron right now and plan to start once infection resolves -Creatinine elevated on presentation. Unknown baseline. Nephrology consult --> showing left hydronephrosis on ultrasound, unable to visualize right kidney, will place IR consult to see if Neph tube is an option -PT/OT -Nutrition consult -DVT prophylaxis -Rocephin Doxy for presumed pneumonia.and UTI History of Present Illness History of Present Illness 11/05 Evaluated examined at bedside. Patient reported she was feeling "bad." Said she felt very "crunched up in her bed." Offered to help her boost up she declined. Declining many interventions. Creatinine a little bit improved renal sent from yesterday showing left hydronephrosis unable to visualize right kidney we will consult interventional radiology to see if neph tubes are an option. Nephrology recommendations reviewed. Continue antibiotics for pneumonia and UTI. Vitals/I&O Vitals/I&O: Vital Signs Date Time Temp Pulse Resp B/P (MAP) Pulse Ox O2 Delivery O2 Flow Rate FiO2 11/05/21 09:53 Room Air 11/05/21 07:00 98.5 73 16 123/75 (91) 94 98.5 I & O 11/04/21 11/04/21 11/05/21 15:00 23:00 07:00 Intake Total 390 ml 50 ml Output Total 650 ml Balance 390 ml -600 ml Physical Exam General: Alert, Oriented X3, moderate distress Heart: Regular rate, Normal S1, Normal S2 Lungs: Clear Abdomen: Normal bowel sounds, Soft, No tenderness Extremities: No edema, Normal pulses Skin: No significant lesion Labs Labs: Laboratory Tests Test 11/04/21 11:35 11/05/21 03:40 11/05/21 06:40 White Blood Count 8.0 x10^3/uL (4.0-11.0) Red Blood Count 3.38 x10^6/uL (3.50-5.40) Hemoglobin 7.1 g/dL (12.0-15.5) 6.6 g/dL (12.0-15.5) Hematocrit 22.3 % (36.0-47.0) Mean Corpuscular Volume 66 fL (79-100) Mean Corpuscular Hemoglobin 21 pg (25-35) Mean Corpuscular Hemoglobin Concent 32 g/dL (31-37) Red Cell Distribution Width 22.3 % (11.5-14.5) Platelet Count 534 x10^3/uL (140-400) Neutrophils (%) (Auto) 83 % (31-73) Lymphocytes (%) (Auto) 9 % (24-48) Monocytes (%) (Auto) 6 % (0-9) Eosinophils (%) (Auto) 2 % (0-3) Basophils (%) (Auto) 1 % (0-3) Neutrophils # (Auto) 6.6 x10^3/uL (1.8-7.7) Lymphocytes # (Auto) 0.7 x10^3/uL (1.0-4.8) Monocytes # (Auto) 0.4 x10^3/uL (0.0-1.1) Eosinophils # (Auto) 0.1 x10^3/uL (0.0-0.7) Basophils # (Auto) 0.1 x10^3/uL (0.0-0.2) Sodium Level 142 mmol/L (136-145) 144 mmol/L (136-145) Potassium Level 4.2 mmol/L (3.5-5.1) 3.8 mmol/L (3.5-5.1) Chloride Level 110 mmol/L (98-107) 113 mmol/L (98-107) Carbon Dioxide Level 23 mmol/L (21-32) 24 mmol/L (21-32) Anion Gap 9 (6-14) 7 (6-14) Blood Urea Nitrogen 50 mg/dL (7-20) 43 mg/dL (7-20) Creatinine 2.4 mg/dL (0.6-1.0) 2.0 mg/dL (0.6-1.0) Estimated GFR (Cockcroft-Gault) 19.9 24.6 BUN/Creatinine Ratio 21 (6-20) Glucose Level 145 mg/dL (70-99) 82 mg/dL (70-99) Calcium Level 8.0 mg/dL (8.5-10.1) 7.6 mg/dL (8.5-10.1) Iron Level 13 ug/dL (50-170) Total Iron Binding Capacity 317 ug/dL (250-450) Iron Saturation 4 % (15-34) Ferritin 13 ng/mL (8-252) Total Bilirubin 0.2 mg/dL (0.2-1.0) Aspartate Amino Transf (AST/SGOT) 18 U/L (15-37) Alanine Aminotransferase (ALT/SGPT) 12 U/L (14-59) Alkaline Phosphatase 63 U/L (46-116) Total Protein 5.7 g/dL (6.4-8.2) Albumin 1.9 g/dL (3.4-5.0) 1.8 g/dL (3.4-5.0) Albumin/Globulin Ratio 0.5 (1.0-1.7) Urine Collection Type Unknown Urine Color (Auto) [place] Urine Turbidity Turbid Urine pH (Auto) 6.5 (<5.0-8.0) Urine Specific [place] 1.009 (1.000-1.030) Urine Protein (Auto) 100 mg/dL (Negative) Urine Glucose (Auto)(UA) Negative mg/dL (Negative) Urine Ketones (Auto) Negative mg/dL (Negative) Urine Blood (Auto) Moderate (Negative) Urine Nitrite Negative (Negative) Urine Bilirubin (Auto) Negative (Negative) Urine Urobilinogen (Auto) Normal mg/dL (Normal) Urine Leukocyte Esterase (Auto) Large (Negative) Urine RBC 11-20 /HPF (0-2) Urine WBC Tntc /HPF (0-4) Urine Squamous Epithelial Cells Few /LPF Urine Bacteria Many /HPF (0-FEW) Phosphorus Level 2.8 mg/dL (2.6-4.7) Magnesium Level 1.6 mg/dL (1.8-2.4) Assessment and Plan Assessmemt and Plan Problems Medical Problems: (1) Acute renal injury Status: Acute (2) Anemia Status: Acute (3) Failure to thrive in adult Status: Acute (4) Weakness generalized Status: Acute Comment Review of Relevant I have reviewed the following items jyoti (where applicable) has been applied. Medications: Current Medications Medications (Trade) Dose Ordered Sig/Kaleigh Route PRN Reason Start Time Stop Time Status Last Admin Dose Admin Ceftriaxone Sodium (Rocephin) 1 gm Q24H IVP 11/04/21 11:00 11/05/21 09:53 Doxycycline Hyclate (Vibra-Tab) 100 mg BID PO 11/04/21 11:00 11/05/21 09:53 Senna/Docusate Sodium (Senna Plus) 1 tab BID PO 11/04/21 11:00 11/05/21 09:52 Lactobacillus Rhamnosus (Culturelle) 1 cap BID PO 11/04/21 21:00 11/05/21 09:52 Justifications for Admission Other Justification ALMA MCCABE MD November 05, 2021 10:55
[2021-11-05] MEDS ORDERED: MAGNESIUM SULFATE 2GM 50 ML IV ONE (11:00)
--- NOTE | 2021-11-05 12:02 | PDOC ---
DATE OF SERVICE: DOS: DATE: 11/05/21 TIME: 11:57 SUBJECTIVE ROS Follow-up for acute kidney injury Patient uncomfortable laying on her side. Currently getting blood transfusion. CVS: no Orthopnea, no CP RESP: no SOB, no HUNTER GI: no Nausea, no Vomiting : no Dysuria, no Urgency: Stevenson in place OBJECTIVE Vital Signs Vital Signs Date Time Temp Pulse Resp B/P (MAP) Pulse Ox O2 Delivery O2 Flow Rate FiO2 11/05/21 11:31 98.8 86 20 89/45 98.8 11/05/21 10:54 96 Room Air I & 0 Intake and Output 11/05/21 07:00 Intake Total 440 ml Output Total 650 ml Balance -210 ml Intake Oral 440 ml Output Urine Total 650 ml # Voids 3 PHYSICAL EXAM Physical Exam General Appearance: Awake Alert Oriented x ? In no Distress, thin and cachectic white female, facial pallor Eyes: VIsion Unchanged Conjunctiva Normal EN: No EN Drainage Mucous Memb. moist (eating/being fed lunch) Neck: min JVD + JVP Supple no palpable thyromegaly CVS: S1 S2 possible murmur No Gallop No Rub + Edema Resp: no Rales no Rhonchi no Acc. Muscle use GI: BAS +ve NO Bruit Non Tender Non Distended : no CVA tenderness; no Suprapubic Tenderness Assessment and plan Presumed acute kidney injury. Nonvisualized right kidney, hydronephrosis of left kidney. Stevenson catheter in place Hydronephrosis: Urology consultation requested, Stevenson in place Nonvisualization of right kidney: CT abdomen pelvis will be ordered to see if patient has a pelvic right kidney or congenital absence of the same. Hypotension: Volume repletion as ordered, cannot rule out urosepsis Intravascular volume depletion cannot be ruled out IV fluids will be ordered. May need IV albumin also Severe hypoalbuminemia we will check urine for nephrotic syndrome ? Single functioning kidney if right kidney remains nonvisualized. May need nuclear medicine renal scan to " find right kidney" Severe anemia at presentation: May need evaluation for underlying malignancy. Consider hematology and/or GI evaluation given severe microcytosis. Severe iron deficiency anemia. Blood transfusion ongoing currently Lowish magnesium: Replace as ordered Failure to thrive: Prognosis is guarded COMMENT/RELEVANT DATA Meds Current Medications Medications (Trade) Dose Ordered Sig/Kaleigh Start Time Stop Time Status Last Admin Dose Admin Acetaminophen (Tylenol) 650 mg PRN Q6HRS PRN 11/04/21 10:45 Calcium Carbonate/ Glycine (Tums) 500 mg PRN Q3HRS PRN 11/04/21 10:45 Ceftriaxone Sodium (Rocephin) 1 gm Q24H 11/04/21 11:00 11/05/21 09:53 1 GM Doxycycline Hyclate (Vibra-Tab) 100 mg BID 11/04/21 11:00 11/05/21 09:53 100 MG Info (Non-Icu Electrolyte Protocol) 1 ea PRN DAILY PRN 11/04/21 10:45 Lactobacillus Rhamnosus (Culturelle) 1 cap BID 11/04/21 21:00 11/05/21 09:52 1 CAP Magnesium Sulfate 50 ml @ 25 mls/hr 1X ONCE 11/05/21 11:00 11/05/21 12:59 Ondansetron HCl (Zofran) 4 mg PRN Q6HRS PRN 11/04/21 10:45 Oxycodone/ Acetaminophen (Percocet 5/325) 2 tab PRN Q4HRS PRN 11/04/21 10:45 Senna/Docusate Sodium (Senna Plus) 1 tab BID 11/04/21 11:00 11/05/21 09:52 1 TAB Sodium Chloride 1,000 ml @ 75 mls/hr [id number] 11/03/21 22:00 11/04/21 21:59 DC 11/04/21 13:12 75 MLS/HR Lab Laboratory Tests Test 11/05/21 03:40 11/05/21 06:40 Urine Collection Type Unknown Urine Color (Auto) [place] Urine Turbidity Turbid Urine pH (Auto) 6.5 (<5.0-8.0) Urine Specific [place] 1.009 (1.000-1.030) Urine Protein (Auto) 100 mg/dL (Negative) Urine Glucose (Auto)(UA) Negative mg/dL (Negative) Urine Ketones (Auto) Negative mg/dL (Negative) Urine Blood (Auto) Moderate (Negative) Urine Nitrite Negative (Negative) Urine Bilirubin (Auto) Negative (Negative) Urine Urobilinogen (Auto) Normal mg/dL (Normal) Urine Leukocyte Esterase (Auto) Large (Negative) Urine RBC 11-20 /HPF (0-2) Urine WBC Tntc /HPF (0-4) Urine Squamous Epithelial Cells Few /LPF Urine Bacteria Many /HPF (0-FEW) Hemoglobin 6.6 g/dL (12.0-15.5) Sodium Level 144 mmol/L (136-145) Potassium Level 3.8 mmol/L (3.5-5.1) Chloride Level 113 mmol/L (98-107) Carbon Dioxide Level 24 mmol/L (21-32) Anion Gap 7 (6-14) Blood Urea Nitrogen 43 mg/dL (7-20) Creatinine 2.0 mg/dL (0.6-1.0) Estimated GFR (Cockcroft-Gault) 24.6 Glucose Level 82 mg/dL (70-99) Calcium Level 7.6 mg/dL (8.5-10.1) Phosphorus Level 2.8 mg/dL (2.6-4.7) Magnesium Level 1.6 mg/dL (1.8-2.4) Albumin 1.8 g/dL (3.4-5.0) Results All relevant outside records, renal labs, imaging studies, telemetry/EKG's were reviewed. Other Renal ultrasound: FINDINGS: The longitudinal and AP and transverse dimensions of the left kidney are 10.1 cm and 5.4 cm and 6.0 cm respectively. There is severe hydronephrosis of the left kidney. No perinephric fluid collection or renal mass is evident on the left side. The right kidney is not visualized in this study and this may be secondary to bowel gas and inferior displacement of the right kidney related to a large right lobe hepatic cyst measuring almost 11 cm in size. The urinary bladder is mildly distended. The lower portion of the urinary bladder is not well visualized due to acoustic shadowing. IMPRESSION: Severe hydronephrosis of the left kidney. Right kidney is not visualized in this study. Large almost 11 cm right hepatic cyst. Justicifation of Admission Dx: Justifications for Admission: Justification of Admission Dx: N/A DILCIA TIPTON MD November 05, 2021 12:02
[2021-11-05] MEDS: ALBUMIN HUMAN 25% 100 ML IV SCH ×2 (15:11→22:49)
--- NOTE | 2021-11-05 23:32 | RAD ---
PQRS Compliance Statement: One or more of the following individualized dose reduction techniques were utilized for this examinat ion: 1. Automated exposure control 2. Adjustment of the mA and/or kV according to patient size 3. Use of iterative reconstruction technique CT ABDOMEN+PELVIS WO Clinical Indication: Reason: hydronephrosis / Spl. Instructions: / History: Comparison: Renal ultrasound, prior day. Technique: Helical CT imaging of the abdomen and pelvis is performed without IV or oral contrast. Findings: Evaluation of solid organs and bowel is limited without oral and IV contrast, decreasing sensitivity for detection of abnormal findings. Evaluation of the abdomen is also limited due to anasarca and asc ites. There are moderate right and small left pleural effusions. There is compressive atelectasis in the bi lateral lung bases. The cardiac size is upper limits of normal. There are hepatic cysts, largest measures 9.6 x 10.8 cm and is located centrally in the liver. There is a cyst in the right hepatic lobe measuring 3.6 cm. The gallbladder, spleen, pancreas are normal. A drenal glands are not well seen. There is severe bilateral hydronephrosis. There is severe cortical thinning of the left kidney. An ob structing process is not identified but sensitivity is limited. There is a small to moderate-sized hernia. The stomach contains fluid. No obviously dilated small bow el is identified. There is distal colon diverticulosis. There is a fat-containing periumbilical herni a. There is moderate wall thickening of the urinary bladder. The urinary bladder contains Stevenson catheter and is decompressed. The uterus is not identified, may be surgically absent. There is suggestion of pelvic floor laxity. There are degenerative changes of the left elbow. There are advanced degenerative changes of the lumb ar spine. There is scoliosis. IMPRESSION: 1. There is severe bilateral hydronephrosis. No obstructing process is seen but sensitivity is limit ed. 2. Moderate right and small left pleural effusions. 3. There is severe anasarca and there is mild abdominal and pelvic ascites. 4. Urinary bladder contains Stevenson catheter and is decompressed and demonstrates moderate wall thicke filiberto. Consider acute or chronic cystitis. 5. There is probable pelvic floor laxity. 6. Distal colon diverticulosis. 7. Small to moderate-sized hiatal hernia. Electronically signed by: Brent Rodarte MD (11/05/2021 11:30 PM) [facility]
[2021-11-06 03:44] VITALS: BP 115/72
[2021-11-06 04:51] LABS: ALBUMIN 2.4 g/dL (3.4-5.0); CALCIUM 7.4 mg/dL (8.5-10.1); CREATININE 1.8 mg/dL (0.6-1.0); GFR 27.7; MAGNESIUM 1.8 mg/dL (1.8-2.4); PHOSPHORUS 2.2 mg/dL (2.6-4.7); POTASSIUM 4.1 mmol/L (3.5-5.1)
[2021-11-06 07:00] VITALS: BP 110/68
--- NOTE | 2021-11-06 09:18 | PDOC ---
DATE OF SERVICE DATE: 11/06/21 TIME: 09:17 SUBJECTIVE ROS Stable, c/o Hip pain, denies SOB, No N/V OBJECTIVE Vital Signs Vital Signs Date Time Temp Pulse Resp B/P (MAP) Pulse Ox O2 Delivery O2 Flow Rate FiO2 11/06/21 07:00 98.0 70 16 110/68 (82) 94 Room Air 98.0 I & 0 Intake and Output 11/06/21 07:00 Intake Total 4762 ml Output Total 1780 ml Balance 2982 ml Intake Oral 580 ml IV Total 100 ml Blood Product IV Normal Saline Flush 4082 ml Output Urine Total 1780 ml PHYSICAL EXAM Physical Exam General Appearance: no Distress HEEN OM moist, anicteric, On RA Neck: Supple CVS: S1 S2 Resp: CTA, no Acc. Muscle use GI: BS +ve NO Bruit Non Tender Non Distended : no CVA tenderness; no Suprapubic Tenderness, Stevenson + Derm No Rash Neuro- Moving ileana xtrem, Grossly Normal Psych Cooperative DIAGNOSIS/ASSESSMENT Assessment & Plan Acute kidney injury. Nonvisualized right kidney, hydronephrosis of left kidney. Stevenson catheter in place; Creat Trending down . UA Cx no growth Supportive care , avoid Nephrotoxins Hydronephrosis: Urology consultation requested, Stevenson in place AbnormaL CT abdomen pelvis - severe bilateral hydronephrosis. No obstructing process is seen but sensitivity is limited. Hypotension POA : stable Pleural effusion - Moderate right and small left pleural effusions. Severe anasarca and mild abdominal and pelvic ascites. Distal colon diverticulosis. Severe hypoalbuminemia - contributing to anasarca reported on CT . Pr/Cr ordered Severe anemia at presentation: Consider hematology and/or GI evaluation Recd Blood transfusion on 11/05 . No Labs today . Severe Fe Deficiency COMMENT/RELEVANT DATA Meds Current Medications Medications (Trade) Dose Ordered Sig/Kaleigh Start Time Stop Time Status Last Admin Dose Admin Acetaminophen (Tylenol) 650 mg PRN Q6HRS PRN 11/04/21 10:45 Albumin Human 100 ml @ 100 mls/hr TID 11/05/21 14:00 11/07/21 09:59 11/05/21 22:49 100 MLS/HR Ascorbic Acid (Vitamin C) 1,000 mg DAILY 11/06/21 09:00 Calcium Carbonate/ Glycine (Tums) 500 mg PRN Q3HRS PRN 11/04/21 10:45 Ceftriaxone Sodium (Rocephin) 1 gm Q24H 11/04/21 11:00 11/05/21 09:53 1 GM Doxycycline Hyclate (Vibra-Tab) 100 mg BID 11/04/21 11:00 11/05/21 22:54 100 MG Info (Non-Icu Electrolyte Protocol) 1 ea PRN DAILY PRN 11/04/21 10:45 Lactobacillus Rhamnosus (Culturelle) 1 cap BID 11/04/21 21:00 11/05/21 22:54 1 CAP Magnesium Sulfate 50 ml @ 25 mls/hr 1X ONCE 11/05/21 11:00 11/05/21 12:59 DC 11/05/21 16:15 25 MLS/HR Multivitamins (Thera M Plus) 1 tab DAILY 11/06/21 09:00 Ondansetron HCl (Zofran) 4 mg PRN Q6HRS PRN 11/04/21 10:45 Oxycodone/ Acetaminophen (Percocet 5/325) 2 tab PRN Q4HRS PRN 11/04/21 10:45 Senna/Docusate Sodium (Senna Plus) 1 tab BID 11/04/21 11:00 11/05/21 22:53 1 TAB Sodium Chloride 1,000 ml @ 75 mls/hr [id number] 11/03/21 22:00 11/04/21 21:59 DC 11/04/21 13:12 75 MLS/HR Lab Laboratory Tests Test 11/06/21 03:55 Sodium Level 141 mmol/L (136-145) Potassium Level 4.1 mmol/L (3.5-5.1) Chloride Level 111 mmol/L (98-107) Carbon Dioxide Level 23 mmol/L (21-32) Anion Gap 7 (6-14) Blood Urea Nitrogen 34 mg/dL (7-20) Creatinine 1.8 mg/dL (0.6-1.0) Estimated GFR (Cockcroft-Gault) 27.7 Glucose Level 81 mg/dL (70-99) Calcium Level 7.4 mg/dL (8.5-10.1) Phosphorus Level 2.2 mg/dL (2.6-4.7) Magnesium Level 1.8 mg/dL (1.8-2.4) Albumin 2.4 g/dL (3.4-5.0) Results All relevant outside records, renal labs, imaging studies, telemetry/EKG's were reviewed. Justicifation of Admission Dx: Justifications for Admission: Justification of Admission Dx: N/A ELIANE STRINGER MD November 06, 2021 09:18
[2021-11-06] MEDS: MULTIVITAMIN with MINERAL TABLET. PO SCH (09:25)
[2021-11-06] MEDS: SENNOSIDES/DOCUSATE 8.6/50MG TABLET. PO SCH ×2 (09:25→20:38)
[2021-11-06] MEDS: oxyCODONE/APAP 5/325 1 TAB TABLET PO PRN ×2 (09:26→20:38)
[2021-11-06] MEDS: DOXYCYCLINE HYCLATE 100 MG TABLET PO SCH ×2 (09:26→20:38)
[2021-11-06] MEDS: LACTOBACILLUS RHAMNOSUS GG 1 CAPSULE. PO SCH ×2 (09:26→20:38)
[2021-11-06] MEDS: cefTRIAXone IV Push 1 GM VIAL. IVP SCH (09:26)
[2021-11-06] MEDS: ASCORBIC ACID 1,000 MG TABLET PO SCH (09:26)
[2021-11-06] MEDS: ALBUMIN HUMAN 25% 100 ML IV SCH ×3 (09:44→22:32)
[2021-11-06 11:00] VITALS: BP 102/61
[2021-11-06 12:22] LABS: HEMATOCRIT 24.6 % (36.0-47.0); HEMOGLOBIN 7.6 g/dL (12.0-15.5)
--- NOTE | 2021-11-06 13:33 | PDOC2 ---
UROLOGY CONSULT Date of Service DATE: 11/06/21 TIME: 13:22 Reason for Consult Reason for Consult: hydronephrosis Identification/Chief Complaint Chief Complaint weakness History of Present Illness Reason for Visit: 70yo female presented to ER after neighbors requested wellness check. She was found to be in very poor hygiene, had not been performing ADLs. Initial labs showed CHRISTIANO. Imaging showed bilateral hydronephrosis. Ga was placed with output of 700ml urine. Pt endorses chronic incontinence, does not feel like she empties her bladder well. Denies any prior urologic intervention. Has not had regular medical care. Denies fevers, dysuria, gross hematuria. Past Medical History Cardiovascular: No pertinent hx Pulmonary: No pertinent hx GI: No pertinent hx Heme/Onc: No pertinent hx Infectious disease: No pertinent hx Renal/: Urinary Incontinence Past Surgical History Past Surgical History: No pertinent history Family History Family History: Family History Unknown Social History No Lives: with Family Current Medications Current Medications Current Medications Albumin Human 100 ml @ 100 mls/hr TID IV Last administered on 11/06/21at 09:44; Start 11/05/21 at 14:00; Stop 11/07/21 at 09:59 Ascorbic Acid (Vitamin C) 1,000 mg DAILY PO Last administered on 11/06/21at 09:26; Start 11/06/21 at 09:00 Multivitamins (Thera M Plus) 1 tab DAILY PO Last administered on 11/06/21at 09:25; Start 11/06/21 at 09:00 Allergies Allergies: Coded Allergies: No Known Drug Allergies (Unverified , 11/04/21) ROS Review Of Systems: CONSTITUTIONAL: No fever or chills EYES: No recent changes SKIN: No rash or itching CARDIOVASCULAR: No chest pain, syncope, palpitations, or edema RESPIRATORY: No SOB or cough GASTROINTESTINAL: No nausea, vomiting or abdominal pain NEUROLOGICAL: No headaches or weakness ENDOCRINE: No cold or heat intolerance GENITOURINARY: as in hpi MUSCULOSKELETAL: No back pain or joint pain LYMPHATICS: No enlarged lymph nodes PSYCHIATRIC: No anxiety or depression Physical Exam Physical Exam: General: Pleasant, no acute distress, thin Eyes: conjunctiva anicteric, eyes full range of motion ENT: moist oral mucosa, normal dentition Neck: Trachea midline, no masses Respiratory: unlabored breathing, not using accessory muscles Cardiovascular: Regular rate and rhythm, no peripheral edema Abdomen: nontender, nondistended : ga draining yellow urine Skin: no rashes or skin lesions on visualized skin Psych: normal mood, affect. Alert and oriented x 3. Vitals VITALS Vital Signs Date Time Temp Pulse Resp B/P (MAP) Pulse Ox O2 Delivery O2 Flow Rate FiO2 11/06/21 11:00 98.0 84 18 102/61 (75) 94 Room Air 98.0 Labs Labs Laboratory Tests Test 11/05/21 03:40 11/05/21 06:40 11/06/21 03:55 Urine Collection Type Unknown Urine Color (Auto) Greer Urine Turbidity Turbid Urine pH (Auto) 6.5 (<5.0-8.0) Urine Specific [place] 1.009 (1.000-1.030) Urine Protein (Auto) 100 mg/dL (Negative) Urine Glucose (Auto)(UA) Negative mg/dL (Negative) Urine Ketones (Auto) Negative mg/dL (Negative) Urine Blood (Auto) Moderate (Negative) Urine Nitrite Negative (Negative) Urine Bilirubin (Auto) Negative (Negative) Urine Urobilinogen (Auto) Normal mg/dL (Normal) Urine Leukocyte Esterase (Auto) Large (Negative) Urine RBC 11-20 /HPF (0-2) Urine WBC Tntc /HPF (0-4) Urine Squamous Epithelial Cells Few /LPF Urine Bacteria Many /HPF (0-FEW) Hemoglobin 6.6 g/dL (12.0-15.5) 7.6 g/dL (12.0-15.5) Sodium Level 144 mmol/L (136-145) 141 mmol/L (136-145) Potassium Level 3.8 mmol/L (3.5-5.1) 4.1 mmol/L (3.5-5.1) Chloride Level 113 mmol/L (98-107) 111 mmol/L (98-107) Carbon Dioxide Level 24 mmol/L (21-32) 23 mmol/L (21-32) Anion Gap 7 (6-14) 7 (6-14) Blood Urea Nitrogen 43 mg/dL (7-20) 34 mg/dL (7-20) Creatinine 2.0 mg/dL (0.6-1.0) 1.8 mg/dL (0.6-1.0) Estimated GFR (Cockcroft-Gault) 24.6 27.7 Glucose Level 82 mg/dL (70-99) 81 mg/dL (70-99) Calcium Level 7.6 mg/dL (8.5-10.1) 7.4 mg/dL (8.5-10.1) Phosphorus Level 2.8 mg/dL (2.6-4.7) 2.2 mg/dL (2.6-4.7) Magnesium Level 1.6 mg/dL (1.8-2.4) 1.8 mg/dL (1.8-2.4) Albumin 1.8 g/dL (3.4-5.0) 2.4 g/dL (3.4-5.0) Hematocrit 24.6 % (36.0-47.0) Mean Corpuscular Hemoglobin Concent 31 g/dL (31-37) Laboratory Tests Test 11/06/21 03:55 Hemoglobin 7.6 g/dL (12.0-15.5) Hematocrit 24.6 % (36.0-47.0) Mean Corpuscular Hemoglobin Concent 31 g/dL (31-37) Sodium Level 141 mmol/L (136-145) Potassium Level 4.1 mmol/L (3.5-5.1) Chloride Level 111 mmol/L (98-107) Carbon Dioxide Level 23 mmol/L (21-32) Anion Gap 7 (6-14) Blood Urea Nitrogen 34 mg/dL (7-20) Creatinine 1.8 mg/dL (0.6-1.0) Estimated GFR (Cockcroft-Gault) 27.7 Glucose Level 81 mg/dL (70-99) Calcium Level 7.4 mg/dL (8.5-10.1) Phosphorus Level 2.2 mg/dL (2.6-4.7) Magnesium Level 1.8 mg/dL (1.8-2.4) Albumin 2.4 g/dL (3.4-5.0) Images Images Findings: Evaluation of solid organs and bowel is limited without oral and IV contrast, decreasing sensitivity for detection of abnormal findings. Evaluation of the abdomen is also limited due to anasarca and ascites. There are moderate right and small left pleural effusions. There is compressive atelectasis in the bilateral lung bases. The cardiac size is upper limits of normal. There are hepatic cysts, largest measures 9.6 x 10.8 cm and is located centrally in the liver. There is a cyst in the right hepatic lobe measuring 3.6 cm. The gallbladder, spleen, pancreas are normal. Adrenal glands are not well seen. There is severe bilateral hydronephrosis. There is severe cortical thinning of the left kidney. An obstructing process is not identified but sensitivity is limited. There is a small to moderate-sized hernia. The stomach contains fluid. No obviously dilated small bowel is identified. There is distal colon diverticulosis. There is a fat-containing periumbilical hernia. There is moderate wall thickening of the urinary bladder. The urinary bladder contains Ga catheter and is decompressed. The uterus is not identified, may be surgically absent. There is suggestion of pelvic floor laxity. There are degenerative changes of the left elbow. There are advanced degenerative changes of the lumbar spine. There is scoliosis. IMPRESSION: 1. There is severe bilateral hydronephrosis. No obstructing process is seen but sensitivity is limited. 2. Moderate right and small left pleural effusions. 3. There is severe anasarca and there is mild abdominal and pelvic ascites. 4. Urinary bladder contains Ga catheter and is decompressed and demonstrates moderate wall thickening. Consider acute or chronic cystitis. 5. There is probable pelvic floor laxity. 6. Distal colon diverticulosis. 7. Small to moderate-sized hiatal hernia. Electronically signed by: Brent Rodarte MD (11/05/2021 11:30 PM) [facility] Assessment/Plan Assessment/Plan Bilateral Hydronephrosis, CHRISTIANO Ga in place. 700mL retained volume. Good urine output. Ct a/p reviewed. Severe bilat hydro, diffuse bladder wall thickening suggestion chronic poor bladder emptying. Creatinine trending down since admission, now 1.8 today. Suspect obstructive uropathy due to poor bladder emptying. Renal function is improving. No indication for surgical intervention at this point. Would continue ga for next 3-4 days then attempt voiding trial. Pt states she cannot f/u outpatient--request social work involvement. Will try to do VT prior to discharge. If fails, it is possible she needs chronic indwelling ga or to learn SIC for bladder management. BLANCA HOWE November 06, 2021 13:33
[2021-11-06] MEDS: CALCIUM CARBONATE 500 MG TAB.CHEW PO PRN (14:02)
--- NOTE | 2021-11-06 14:42 | PDOC ---
[employer] PROGRESS NOTE Date of Service DOS: DATE: 11/06/21 TIME: 14:36 Chief Complaint Chief Complaint Right-sided pneumonia likely bacterial gram-negative possible aspiration Microcytic anemia due to CLAUDIA adult failure to thrive, CHRISTIANO likely obstructive uropathy Bilateral hydronephrosis Acute on chronic urinary retention severe protein malnutrition reported history of scoliosis Right asymptomatic hepatic cyst greater than 4 cm GI consult for anemia and hepatic cysts We will start IV iron infusion today and consider outpatient iron supplement replacement Trend hemoglobin Appreciate nephrology Recs Urology consultedno surgical intervention at this time. Continue indwelling Stevenson and possible voiding trial before discharge -PT/OT -Nutrition consult -DVT prophylaxis -Rocephin Doxy for presumed pneumonia.and UTI History of Present Illness History of Present Illness 11/06/2021 No acute events overnight. Patient seen examined bedside. Patient confused about what she needs to do for her medical management. She does not follow closely with any primary doctor. Urology evaluated and recommended continuing indwelling Stevenson catheter and no surgical management at this time. Patient may need voiding trial before discharge as she does not have good follow with any primary physician. Hemoglobin today is at 7.6 after 2 units PRBC. No obvious sources of bleeding. Anemia likely related to iron deficiency anemia. Patient's chart, labs, images were reviewed and discussed with RN 5/8 Evaluated examined at bedside. Patient reported she was feeling "bad." Said she felt very "crunched up in her bed." Offered to help her boost up she declined. Declining many interventions. Creatinine a little bit improved renal sent from yesterday showing left hydronephrosis unable to visualize right kidney we will consult interventional radiology to see if neph tubes are an option. Nephrology recommendations reviewed. Continue antibiotics for pneumonia and UTI. Vitals/I&O Vitals/I&O: Vital Signs Date Time Temp Pulse Resp B/P (MAP) Pulse Ox O2 Delivery O2 Flow Rate FiO2 11/06/21 11:00 98.0 84 18 102/61 (75) 94 Room Air 98.0 I & O 11/05/21 11/05/21 11/06/21 15:00 23:00 07:00 Intake Total 843 ml 3789 ml 130 ml Output Total 600 ml 1180 ml Balance 243 ml 3789 ml -1050 ml Physical Exam General: Alert, Oriented X3, moderate distress Heart: Regular rate, Normal S1, Normal S2 Lungs: Clear Abdomen: Normal bowel sounds, Soft, No tenderness Extremities: No edema, Normal pulses Skin: No significant lesion Labs Labs: Laboratory Tests Test 11/06/21 03:55 Hemoglobin 7.6 g/dL (12.0-15.5) Hematocrit 24.6 % (36.0-47.0) Mean Corpuscular Hemoglobin Concent 31 g/dL (31-37) Sodium Level 141 mmol/L (136-145) Potassium Level 4.1 mmol/L (3.5-5.1) Chloride Level 111 mmol/L (98-107) Carbon Dioxide Level 23 mmol/L (21-32) Anion Gap 7 (6-14) Blood Urea Nitrogen 34 mg/dL (7-20) Creatinine 1.8 mg/dL (0.6-1.0) Estimated GFR (Cockcroft-Gault) 27.7 Glucose Level 81 mg/dL (70-99) Calcium Level 7.4 mg/dL (8.5-10.1) Phosphorus Level 2.2 mg/dL (2.6-4.7) Magnesium Level 1.8 mg/dL (1.8-2.4) Albumin 2.4 g/dL (3.4-5.0) Assessment and Plan Assessmemt and Plan Problems Medical Problems: (1) Acute renal injury Status: Acute (2) Anemia Status: Acute (3) Failure to thrive in adult Status: Acute (4) Weakness generalized Status: Acute Comment Review of Relevant I have reviewed the following items jyoti (where applicable) has been applied. Medications: Current Medications Medications (Trade) Dose Ordered Sig/Kaleigh Route PRN Reason Start Time Stop Time Status Last Admin Dose Admin Multivitamins (Thera M Plus) 1 tab DAILY PO 11/06/21 09:00 11/06/21 09:25 Ascorbic Acid (Vitamin C) 1,000 mg DAILY PO 11/06/21 09:00 11/06/21 09:26 Justifications for Admission Other Justification BEE OLIVEROS MD November 06, 2021 14:42
[2021-11-06 14:55] VITALS: BP 107/64
[2021-11-06] MEDS ORDERED: IRON SUCROSE COMPLEX 400 MG in IV NORMAL SALINE 250ML 250 ML IV ONE (15:00)
--- NOTE | 2021-11-06 15:22 | NUR ---
SS following for discharge planning. SS reviewed pt chart and discussed with pt RN. 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 Pt is currently on room air. Pt on IV Rocephin. PT/OT recommended half-way unit. Self pay. Med Assist following. Wound care consulted. Per RN, pt had several wounds on admission and was covered in feces. SS was notified that EMS hotlined pt due to unsanitary living conditions. SS was notified that pt has no working toilets and bathes in the sink. RN, Cary, reported that she called in DCF hotline but was not given a reference number from the call. She was told that they would call her back with a reference number. SS completed DCF hotline and was provided with reference number [id number]. Pt's RN notified. SS will continue to follow for discharge planning.
--- NOTE | 2021-11-06 16:25 | PDOC2 ---
GI CONSULT Date of Service: DATE: 11/06/21 TIME: 16:00 Reason For Consult: anemia and hepatic cyst HPI: HPI: 70 y/o female admitted on 11/03/21. Brought to ER via EMS - reviewed notes - poor hygiene and living circumstances. Noted w/ CLAUDIA requiring transfusions and hepatic cyst on imaging which is why we are asked to see. Urology and nephrology also following for bilateral hydronephrosis and CHRISTIANO. Has been feeling very tired recently. Her son is frustrated because it takes her a long time to do things. GI-snyder, has long h/o heartburn - has been taking more Tums recently. Often has pill dysphagia - gets stuck in lower neck, sometimes coughs them back up - rarely issues w/ solid foods or liquids. Occasional vomiting - "brown and watery" - occurs randomly. Has a good appetite but has lost weight overtime. She eats two meals a day - she likes Cheerios, oatmeal, breakfast bars, and TV dinners. Occasionally has loose stools. No constipation or melena. Occasionally sees bright red blood with wiping (after urinating or stooling) - says "I think it comes from that thing that hangs out" and goes on to describe what sounds like uterine prolapse - "it never goes back it." No previous EGD or colonoscopy. Hiatal hernia and diverticulosis noted on CT. Denies GB, liver, pancreas, and PUD history. Takes Advil or Tylenol pretty much daily for hip pain or headaches - sometimes three or four times daily. PMH: PMH: see HPI, otherwise denies FH: Family History: Cancer (various family members - unknown type), CVA (mother) Social History: Smoke: No ALCOHOL: none Drugs: None ROS: GEN: Denies fevers, chills, sweats HEENT: Denies blurred vision, sore throat CV: Denies chest pain RESP: Denies shortness of air, cough GI: Per HPI : Denies hematuria, dysuria ENDO: +weight loss NEURO: Denies confusion, dizziness MSK: +weakness +Hip pain SKIN: Denies jaundice, pruritus Vitals: Vitals: Vital Signs Date Time Temp Pulse Resp B/P (MAP) Pulse Ox O2 Delivery O2 Flow Rate FiO2 11/06/21 14:55 98.5 75 18 107/64 (78) 96 Room Air 98.5 Labs: Labs: Laboratory Tests Test 11/06/21 03:55 Hemoglobin 7.6 g/dL (12.0-15.5) Hematocrit 24.6 % (36.0-47.0) Mean Corpuscular Hemoglobin Concent 31 g/dL (31-37) Sodium Level 141 mmol/L (136-145) Potassium Level 4.1 mmol/L (3.5-5.1) Chloride Level 111 mmol/L (98-107) Carbon Dioxide Level 23 mmol/L (21-32) Anion Gap 7 (6-14) Blood Urea Nitrogen 34 mg/dL (7-20) Creatinine 1.8 mg/dL (0.6-1.0) Estimated GFR (Cockcroft-Gault) 27.7 Glucose Level 81 mg/dL (70-99) Calcium Level 7.4 mg/dL (8.5-10.1) Phosphorus Level 2.2 mg/dL (2.6-4.7) Magnesium Level 1.8 mg/dL (1.8-2.4) Albumin 2.4 g/dL (3.4-5.0) CULTURE URINE Final NO GROWTH ON 11/06/21 at 0730 BLOOD CULTURE Preliminary NO GROWTH AFTER 2 DAYS Allergies: Coded Allergies: No Known Drug Allergies (Unverified , 11/04/21) Medications: Current Medications Medications (Trade) Dose Ordered Sig/Kaleigh Route PRN Reason Start Time Stop Time Status Last Admin Dose Admin Multivitamins (Thera M Plus) 1 tab DAILY PO 11/06/21 09:00 11/06/21 09:25 Ascorbic Acid (Vitamin C) 1,000 mg DAILY PO 11/06/21 09:00 11/06/21 09:26 Imaging: Imaging: CXR 11/03 IMPRESSION: Right basilar airspace disease. Head CT 11/03 IMPRESSION: No acute intracranial abnormality. Renal US 11/04 IMPRESSION: Severe hydronephrosis of the left kidney. Right kidney is not visualized in this study. Large almost 11 cm right hepatic cyst. CT A/P 11/04 Findings: Evaluation of solid organs and bowel is limited without oral and IV contrast, decreasing sensitivity for detection of abnormal findings. Evaluation of the abdomen is also limited due to anasarca and ascites. There are moderate right and small left pleural effusions. There is compressive atelectasis in the bilateral lung bases. The cardiac size is upper limits of normal. There are hepatic cysts, largest measures 9.6 x 10.8 cm and is located centrally in the liver. There is a cyst in the right hepatic lobe measuring 3.6 cm. The gallbladder, spleen, pancreas are normal. Adrenal glands are not well seen. There is severe bilateral hydronephrosis. There is severe cortical thinning of the left kidney. An obstructing process is not identified but sensitivity is limited. There is a small to moderate-sized hernia. The stomach contains fluid. No obviously dilated small bowel is identified. There is distal colon diverticulosis. There is a fat-containing periumbilical hernia. There is moderate wall thickening of the urinary bladder. The urinary bladder contains Stevenson catheter and is decompressed. The uterus is not identified, may be surgically absent. There is suggestion of pelvic floor laxity. There are degenerative changes of the left elbow. There are advanced degenerative changes of the lumbar spine. There is scoliosis. IMPRESSION: 1. There is severe bilateral hydronephrosis. No obstructing process is seen but sensitivity is limited. 2. Moderate right and small left pleural effusions. 3. There is severe anasarca and there is mild abdominal and pelvic ascites. 4. Urinary bladder contains Stevenson catheter and is decompressed and demonstrates moderate wall thickening. Consider acute or chronic cystitis. 5. There is probable pelvic floor laxity. 6. Distal colon diverticulosis. 7. Small to moderate-sized hiatal hernia. PE: GEN: NAD - spent significant time speaking with her son via phone before consenting to interview - nurse present for entire interview/exam HEENT: Atraumatic, PERRL LUNGS: CTAB HEART: RRR ABD: NABS, S/ND/NT EXTREMITY: No edema SKIN: No rashes, no jaundice NEURO/PSYCH: A & O 3, depressed OTHER: uterine prolapse A/P: A/P: Weakness CLAUDIA CHRISTIANO, bilateral hydronephrosis, hypoalbuminemia Heartburn, pill dysphagia Hepatic cyst - 11cm per renal US CRC screen - none Diverticulosis Regular NSAID use Uterine prolapse -- Discussed prolapse w/ hospitalist - SAP [employer] BI DEVELOPER consulted. Gi-snyder, should have EGD and colonoscopy - can pursue later on (ideally as outpt) when other issues resolved. Okay to continue Tums PRN. Add PPI. Getting iron infusion this afternoon - agree. Monitor Hgb, transfuse as needed. Will review any further recs re: hepatic cyst w/ Dr. Ryder. WILLIAM DUARTE November 06, 2021 16:25
--- NOTE | 2021-11-06 17:18 | NUR ---
Reference for neglect called in by this RN, Social work gave reference number and called into the hotline for this patient. Reference [id number].
--- NOTE | 2021-11-06 17:30 | NUR ---
wound care: Attempted to see patient regarding wound care. Patient eating supper at this time and would like us to come back tomorrow. Patient is well known to us from the wound clinic, as her son is a patient of ours. Wound care will try again tomorrow or Saturday.
[2021-11-06 19:00] VITALS: BP 117/75
[2021-11-06] MEDS: ONDANSETRON PF 4 MG/2 ML VIAL. IVP PRN (20:38)
[2021-11-06 23:00] VITALS: BP 109/64
[2021-11-07 03:00] VITALS: BP 108/62
[2021-11-07] MEDS: oxyCODONE/APAP 5/325 1 TAB TABLET PO PRN ×3 (03:30→22:45)
[2021-11-07 04:25] LABS: BASO # 0.1 x10^3/uL (0.0-0.2); BASO % 1 % (0-3); EOS # 0.2 x10^3/uL (0.0-0.7); EOS % 3 % (0-3); HEMATOCRIT 24.1 % (36.0-47.0); HEMOGLOBIN 7.5 g/dL (12.0-15.5); LYMPH # 1.2 x10^3/uL (1.0-4.8); LYMPH % 18 % (24-48); MEAN CORPUSCULAR HEMOGLOBIN 23 pg (25-35); MEAN CORPUSCULAR HGB CONC 31 g/dL (31-37); MEAN CORPUSCULAR VOLUME 73 fL (79-100); MONO # 0.5 x10^3/uL (0.0-1.1); MONO % 8 % (0-9); NEUT # 4.6 x10^3/uL (1.8-7.7); NEUT % 70 % (31-73); PLATELET COUNT 324 x10^3/uL (140-400); RED BLOOD COUNT 3.31 x10^6/uL (3.50-5.40); WHITE BLOOD COUNT 6.6 x10^3/uL (4.0-11.0)
[2021-11-07 04:59] LABS: CALCIUM 7.7 mg/dL (8.5-10.1); CREATININE 1.6 mg/dL (0.6-1.0); GFR 31.8; MAGNESIUM 1.7 mg/dL (1.8-2.4); PHOSPHORUS 2.2 mg/dL (2.6-4.7); POTASSIUM 4.5 mmol/L (3.5-5.1)
[2021-11-07 07:00] VITALS: BP 101/53
--- NOTE | 2021-11-07 07:47 | PDOC2 ---
CONSULT Date of Consult Date of Consult DATE: 11/07/21 TIME: 07:46 Reason for Consult Reason for Consult: Pelvic organ prolapse History of Present Illness Reason for Visit: The pt is a 70y who present to the ER with weakness. A wellness check was being performed and found her to be in poor shape. The pt was found to have a right-sided pneumonia and was subsequently admitted for abx. During the course of her hospitalization she was found to have pelvic organ prolapse on exam by GI. The pt states that she has noticed this growth outside of her body for about a yr. She states that it is a round ball. She has not sought tx for this prior to this hospitalization. She reports no pain associated with the prolapse. She does not feel that it effects urination outside of making her stream go everywhere. She does reports some incontinence. During the course of her hospital stay she also underwent a CT revealing the following: IMPRESSION: 1. There is severe bilateral hydronephrosis. No obstructing process is seen but sensitivity is limited. 2. Moderate right and small left pleural effusions. 3. There is severe anasarca and there is mild abdominal and pelvic ascites. 4. Urinary bladder contains Stevenson catheter and is decompressed and demonstrates moderate wall thickening. Consider acute or chronic cystitis. 5. There is probable pelvic floor laxity. 6. Distal colon diverticulosis. 7. Small to moderate-sized hiatal hernia. PMH: Scoliosis PSH: Denies Meds: Tylenol, Advil All: NKDA OBHx: TSVD x 1 Table Maker: LMP doesnt remember SH: no tob, no EtOH FH: Stroke, possible CA Past Medical History Cardiovascular: No pertinent hx Pulmonary: No pertinent hx GI: No pertinent hx Heme/Onc: No pertinent hx Infectious disease: No pertinent hx Renal/: Urinary Incontinence Past Surgical History Past Surgical History: No pertinent history Family History Family History: Family History Unknown Social History No ALCOHOL: none Drugs: None Lives: with Family Current Problem List Problem List Problems Medical Problems: (1) Acute renal injury Status: Acute (2) Anemia Status: Acute (3) Failure to thrive in adult Status: Acute (4) Weakness generalized Status: Acute Current Medications Current Medications Current Medications Sodium Chloride 1,000 ml @ 999 mls/hr 1X ONCE IV Last administered on 11/03/21at 21:00; Start 11/03/21 at 20:00; Stop 11/03/21 at 21:31; Status DC Sodium Chloride 1,000 ml @ 75 mls/hr [id number] IV Last administered on 11/04/21at 13:12; Start 11/03/21 at 22:00; Stop 11/04/21 at 21:59; Status DC Ceftriaxone Sodium (Rocephin) 1 gm 1X ONCE IVP Last administered on 11/04/21 01:46; Start 11/03/21 at 23:00; Stop 11/03/21 at 23:01; Status DC Ceftriaxone Sodium (Rocephin) 1 gm Q24H IVP Last administered on 11/06/21 09:26; Start 11/04/21 at 11:00 Doxycycline Hyclate (Vibra-Tab) 100 mg BID PO Last administered on 11/06/21 20:38; Start 11/04/21 at 11:00 Ondansetron HCl (Zofran) 4 mg PRN Q6HRS PRN IVP NAUSEA/VOMITING Last administered on 11/06/21 20:38; Start 11/04/21 at 10:45 Calcium Carbonate/ Glycine (Tums) 500 mg PRN Q3HRS PRN PO UPSET STOMACH Last administered on 11/06/21 14:02; Start 11/04/21 at 10:45 Info (Non-Icu Electrolyte Protocol) 1 ea PRN DAILY PRN MC SEE COMMENTS; Start 11/04/21 at 10:45 Oxycodone/ Acetaminophen (Percocet 5/325) 1 tab PRN Q4HRS PRN PO MILD PAIN, 1ST CHOICE Last administered on 11/06/21 09:26; Start 11/04/21 at 10:45 Oxycodone/ Acetaminophen (Percocet 5/325) 2 tab PRN Q4HRS PRN PO MODERATE PAIN, SEVERE PAIN Last administered on 11/07/21 03:30; Start 11/04/21 at 10:45 Acetaminophen (Tylenol) 650 mg PRN Q6HRS PRN PO Headaches, Temp > 101.5F; Start 11/04/21 at 10:45 Senna/Docusate Sodium (Senna Plus) 1 tab BID PO Last administered on 11/06/21at 20:38; Start 11/04/21 at 11:00 Magnesium Sulfate 50 ml @ 25 mls/hr PRN DAILY PRN IV for Mag < 1.7 on am labs; Start 11/04/21 at 12:45 Lactobacillus Rhamnosus (Culturelle) 1 cap BID PO Last administered on 11/06/21at 20:38; Start 11/04/21 at 21:00 Magnesium Sulfate 50 ml @ 25 mls/hr 1X ONCE IV Last administered on 11/05/21at 16:15; Start 11/05/21 at 11:00; Stop 11/05/21 at 12:59; Status DC Albumin Human 100 ml @ 100 mls/hr TID IV Last administered on 11/06/21at 22:32; Start 11/05/21 at 14:00; Stop 11/07/21 at 09:59 Multivitamins (Thera M Plus) 1 tab DAILY PO Last administered on 11/06/21at 09:25; Start 11/06/21 at 09:00 Ascorbic Acid (Vitamin C) 1,000 mg DAILY PO Last administered on 11/06/21at 09:26; Start 11/06/21 at 09:00 Iron Sucrose 400 mg/Sodium Chloride 270 ml @ 90 mls/hr 1X ONCE IV Last administered on 11/06/21at 15:41; Start 11/06/21 at 15:00; Stop 11/06/21 at 17:59; Status DC Pantoprazole Sodium (Protonix) 40 mg DAILYAC PO ; Start 11/07/21 at 07:30 Active Scripts Active Reported Advil Dual Action 250Mg-125Mg (Ibuprofen/Acetaminophen) 1 Each Tablet 1 Each PO TID PRN PRN Allergies Allergies: Coded Allergies: No Known Drug Allergies (Unverified , 11/04/21) Physical Exam General: Alert, Oriented X3, Cooperative, No acute distress HEENT: PERRLA, Mucous membr. moist/pink Lungs: Clear to auscultation, Normal air movement Heart: Regular rate, Normal S1, Normal S2, No murmurs Abdomen: Normal bowel sounds, Soft, No tenderness, No hepatosplenomegaly, No masses Extremities: No clubbing, No cyanosis, No edema, Normal pulses, No tenderness/swelling Skin: No rashes, No breakdown Neuro: Normal gait, Normal speech, Normal tone, Sensation intact, Reflexes 2+ Psych/Mental Status: Mental status NL, Mood NL Vitals VITALS Vital Signs Date Time Temp Pulse Resp B/P (MAP) Pulse Ox O2 Delivery O2 Flow Rate FiO2 11/07/21 04:00 95 Room Air 11/07/21 03:00 98.2 66 18 108/62 (77) 98.2 Labs Labs Laboratory Tests Test 11/06/21 03:55 11/07/21 04:00 Hemoglobin 7.6 g/dL (12.0-15.5) 7.5 g/dL (12.0-15.5) Hematocrit 24.6 % (36.0-47.0) 24.1 % (36.0-47.0) Mean Corpuscular Hemoglobin Concent 31 g/dL (31-37) 31 g/dL (31-37) Sodium Level 141 mmol/L (136-145) 141 mmol/L (136-145) Potassium Level 4.1 mmol/L (3.5-5.1) 4.5 mmol/L (3.5-5.1) Chloride Level 111 mmol/L (98-107) 111 mmol/L (98-107) Carbon Dioxide Level 23 mmol/L (21-32) 23 mmol/L (21-32) Anion Gap 7 (6-14) 7 (6-14) Blood Urea Nitrogen 34 mg/dL (7-20) 34 mg/dL (7-20) Creatinine 1.8 mg/dL (0.6-1.0) 1.6 mg/dL (0.6-1.0) Estimated GFR (Cockcroft-Gault) 27.7 31.8 Glucose Level 81 mg/dL (70-99) 86 mg/dL (70-99) Calcium Level 7.4 mg/dL (8.5-10.1) 7.7 mg/dL (8.5-10.1) Phosphorus Level 2.2 mg/dL (2.6-4.7) 2.2 mg/dL (2.6-4.7) Magnesium Level 1.8 mg/dL (1.8-2.4) 1.7 mg/dL (1.8-2.4) Albumin 2.4 g/dL (3.4-5.0) 3.0 g/dL (3.4-5.0) White Blood Count 6.6 x10^3/uL (4.0-11.0) Red Blood Count 3.31 x10^6/uL (3.50-5.40) Mean Corpuscular Volume 73 fL (79-100) Mean Corpuscular Hemoglobin 23 pg (25-35) Red Cell Distribution Width 27.0 % (11.5-14.5) Platelet Count 324 x10^3/uL (140-400) Neutrophils (%) (Auto) 70 % (31-73) Lymphocytes (%) (Auto) 18 % (24-48) Monocytes (%) (Auto) 8 % (0-9) Eosinophils (%) (Auto) 3 % (0-3) Basophils (%) (Auto) 1 % (0-3) Neutrophils # (Auto) 4.6 x10^3/uL (1.8-7.7) Lymphocytes # (Auto) 1.2 x10^3/uL (1.0-4.8) Monocytes # (Auto) 0.5 x10^3/uL (0.0-1.1) Eosinophils # (Auto) 0.2 x10^3/uL (0.0-0.7) Basophils # (Auto) 0.1 x10^3/uL (0.0-0.2) Laboratory Tests Test 11/07/21 04:00 White Blood Count 6.6 x10^3/uL (4.0-11.0) Red Blood Count 3.31 x10^6/uL (3.50-5.40) Hemoglobin 7.5 g/dL (12.0-15.5) Hematocrit 24.1 % (36.0-47.0) Mean Corpuscular Volume 73 fL (79-100) Mean Corpuscular Hemoglobin 23 pg (25-35) Mean Corpuscular Hemoglobin Concent 31 g/dL (31-37) Red Cell Distribution Width 27.0 % (11.5-14.5) Platelet Count 324 x10^3/uL (140-400) Neutrophils (%) (Auto) 70 % (31-73) Lymphocytes (%) (Auto) 18 % (24-48) Monocytes (%) (Auto) 8 % (0-9) Eosinophils (%) (Auto) 3 % (0-3) Basophils (%) (Auto) 1 % (0-3) Neutrophils # (Auto) 4.6 x10^3/uL (1.8-7.7) Lymphocytes # (Auto) 1.2 x10^3/uL (1.0-4.8) Monocytes # (Auto) 0.5 x10^3/uL (0.0-1.1) Eosinophils # (Auto) 0.2 x10^3/uL (0.0-0.7) Basophils # (Auto) 0.1 x10^3/uL (0.0-0.2) Sodium Level 141 mmol/L (136-145) Potassium Level 4.5 mmol/L (3.5-5.1) Chloride Level 111 mmol/L (98-107) Carbon Dioxide Level 23 mmol/L (21-32) Anion Gap 7 (6-14) Blood Urea Nitrogen 34 mg/dL (7-20) Creatinine 1.6 mg/dL (0.6-1.0) Estimated GFR (Cockcroft-Gault) 31.8 Glucose Level 86 mg/dL (70-99) Calcium Level 7.7 mg/dL (8.5-10.1) Phosphorus Level 2.2 mg/dL (2.6-4.7) Magnesium Level 1.7 mg/dL (1.8-2.4) Albumin 3.0 g/dL (3.4-5.0) Assessment/Plan Assessment/Plan Assessment: 70y admitted for right-sided pneumonia Recommendations: 1.) Pelvic organ prolapse - Many individuals with prolapse experience symptoms that impact daily activities, sexual function, and exercise. Often pts may present with symptoms related specifically to the prolapsed structures, such as a bulge or vaginal pressure or with associated symptoms including urinary, defecatory or sexual dysfunction. Loss of support of the anterior vaginal wall or vaginal apex may affect bladder and/or urethral function. Symptoms of stress urinary incontinence often coexist with prolapse. She doesnt describe symptoms that the prolapse affects her ability to void, but she may gain some benefit with concurrent surgical repairs. She was noted to have bilateral hydronephorosis with a cr of 2.4 when she arrived. Her renal function improved with the placement of a catheter, so any obstructive symptoms that the prolapse could have been causing have been bypassed. Symptomatic POP can be observed (ie, no intervention), conservative management (ie, pessary), or surgical treatment. The description of her POP sounds that a pessary would not make a discernible impact. Her POP can better be graded on an outpt basis. This would also allow to determine the optimal tx option. She should not need intervention during this hospitalization, especially with the continued improvement in her renal function. 2.) Severe bilateral hydronephrosis nephrology and urology consulted. Stevenson in place. 3.) Acute kidney injury Cr has continued to improve 3.) Urinary incontinence may be 2/2 to prolapse 4.) Menopause - asx 5.) Right-sided pneumonia on IV abx per hospitalists 6.) Anemia 7.) Right asx hepatic cysts GI consulted NEEL WHITE MD November 07, 2021 07:47
[2021-11-07] MEDS: SENNOSIDES/DOCUSATE 8.6/50MG TABLET. PO SCH ×2 (09:00→22:44)
[2021-11-07] MEDS ORDERED: MAGNESIUM SULFATE 2GM 50 ML IV ONE (09:00)
[2021-11-07] MEDS: DOXYCYCLINE HYCLATE 100 MG TABLET PO SCH ×2 (09:09→22:44)
[2021-11-07] MEDS: PANTOPRAZOLE 40 MG TABLET.DR. PO SCH (09:09)
[2021-11-07] MEDS: ALBUMIN HUMAN 25% 100 ML IV SCH (09:09)
[2021-11-07] MEDS: MULTIVITAMIN with MINERAL TABLET. PO SCH (09:09)
[2021-11-07] MEDS: LACTOBACILLUS RHAMNOSUS GG 1 CAPSULE. PO SCH ×2 (09:09→22:44)
[2021-11-07] MEDS: ASCORBIC ACID 1,000 MG TABLET PO SCH (09:10)
--- NOTE | 2021-11-07 09:35 | PDOC ---
DATE OF SERVICE DATE: 11/07/21 TIME: 09:32 SUBJECTIVE ROS Stable denies SOB, No N/V OBJECTIVE Vital Signs Vital Signs Date Time Temp Pulse Resp B/P (MAP) Pulse Ox O2 Delivery O2 Flow Rate FiO2 11/07/21 09:10 94 Room Air 11/07/21 07:00 98.2 63 18 101/53 (69) 98.2 I & 0 Intake and Output 11/07/21 07:00 Intake Total 852 ml Output Total 1225 ml Balance -373 ml Intake Oral 450 ml Blood Product IV Normal Saline Flush 402 ml Output Urine Total 1225 ml # Voids 1 PHYSICAL EXAM Physical Exam General Appearance: no Distress HEEN OM moist, anicteric, On RA Neck: Supple CVS: S1 S2 Resp: CTA, no Acc. Muscle use GI: BS +ve NO Bruit Non Tender Non Distended : no CVA tenderness; no Suprapubic Tenderness, Ga + Derm No Rash Neuro- Moving ileana xtrem, Grossly Normal Psych Cooperative DIAGNOSIS/ASSESSMENT Assessment & Plan Acute kidney injury. Nonvisualized right kidney, hydronephrosis of left kidney. Ga catheter in place; Creat Trending down . UA Cx no growth Supportive care , avoid Nephrotoxins Hydronephrosis: Urology following , No indication for surgical intervention at this point.Recommend to continue ga for next 3-4 days then attempt voiding trial AbnormaL CT abdomen pelvis - severe bilateral hydronephrosis. No obstructing process is seen but sensitivity is limited. Hypotension POA : stable Pleural effusion - Moderate right and small left pleural effusions. Severe anasarca and mild abdominal and pelvic ascites. Distal colon diverticulosis. Severe hypoalbuminemia - contributing to anasarca reported on CT . Pr/Cr ordered Severe anemia at presentation: Consider hematology and/or GI evaluation Recd Blood transfusion on 11/05 . No Labs today . Severe Fe Deficiency COMMENT/RELEVANT DATA Meds Current Medications Medications (Trade) Dose Ordered Sig/Kaleigh Start Time Stop Time Status Last Admin Dose Admin Acetaminophen (Tylenol) 650 mg PRN Q6HRS PRN 11/04/21 10:45 Albumin Human 100 ml @ 100 mls/hr TID 11/05/21 14:00 11/07/21 09:59 11/07/21 09:09 100 MLS/HR Ascorbic Acid (Vitamin C) 1,000 mg DAILY 11/06/21 09:00 11/07/21 09:10 1,000 MG Calcium Carbonate/ Glycine (Tums) 500 mg PRN Q3HRS PRN 11/04/21 10:45 11/06/21 14:02 500 MG Ceftriaxone Sodium (Rocephin) 1 gm Q24H 11/04/21 11:00 11/06/21 09:26 1 GM Doxycycline Hyclate (Vibra-Tab) 100 mg BID 11/04/21 11:00 11/07/21 09:09 100 MG Info (Non-Icu Electrolyte Protocol) 1 ea PRN DAILY PRN 11/04/21 10:45 Iron Sucrose 400 mg/Sodium Chloride 270 ml @ 90 mls/hr 1X ONCE 11/06/21 15:00 11/06/21 17:59 DC 11/06/21 15:41 90 MLS/HR Lactobacillus Rhamnosus (Culturelle) 1 cap BID 11/04/21 21:00 11/07/21 09:09 1 CAP Magnesium Sulfate 50 ml @ 25 mls/hr 1X ONCE 11/07/21 09:00 11/07/21 10:59 Multivitamins (Thera M Plus) 1 tab DAILY 11/06/21 09:00 11/07/21 09:09 1 TAB Ondansetron HCl (Zofran) 4 mg PRN Q6HRS PRN 11/04/21 10:45 11/06/21 20:38 4 MG Oxycodone/ Acetaminophen (Percocet 5/325) 2 tab PRN Q4HRS PRN 11/04/21 10:45 11/07/21 03:30 2 TAB Pantoprazole Sodium (Protonix) 40 mg DAILYAC 11/07/21 07:30 11/07/21 09:09 40 MG Senna/Docusate Sodium (Senna Plus) 1 tab BID 11/04/21 11:00 11/06/21 20:38 1 TAB Sodium Chloride 1,000 ml @ 75 mls/hr [id number] 11/03/21 22:00 11/04/21 21:59 DC 11/04/21 13:12 75 MLS/HR Lab Laboratory Tests Test 11/07/21 04:00 White Blood Count 6.6 x10^3/uL (4.0-11.0) Red Blood Count 3.31 x10^6/uL (3.50-5.40) Hemoglobin 7.5 g/dL (12.0-15.5) Hematocrit 24.1 % (36.0-47.0) Mean Corpuscular Volume 73 fL (79-100) Mean Corpuscular Hemoglobin 23 pg (25-35) Mean Corpuscular Hemoglobin Concent 31 g/dL (31-37) Red Cell Distribution Width 27.0 % (11.5-14.5) Platelet Count 324 x10^3/uL (140-400) Neutrophils (%) (Auto) 70 % (31-73) Lymphocytes (%) (Auto) 18 % (24-48) Monocytes (%) (Auto) 8 % (0-9) Eosinophils (%) (Auto) 3 % (0-3) Basophils (%) (Auto) 1 % (0-3) Neutrophils # (Auto) 4.6 x10^3/uL (1.8-7.7) Lymphocytes # (Auto) 1.2 x10^3/uL (1.0-4.8) Monocytes # (Auto) 0.5 x10^3/uL (0.0-1.1) Eosinophils # (Auto) 0.2 x10^3/uL (0.0-0.7) Basophils # (Auto) 0.1 x10^3/uL (0.0-0.2) Sodium Level 141 mmol/L (136-145) Potassium Level 4.5 mmol/L (3.5-5.1) Chloride Level 111 mmol/L (98-107) Carbon Dioxide Level 23 mmol/L (21-32) Anion Gap 7 (6-14) Blood Urea Nitrogen 34 mg/dL (7-20) Creatinine 1.6 mg/dL (0.6-1.0) Estimated GFR (Cockcroft-Gault) 31.8 Glucose Level 86 mg/dL (70-99) Calcium Level 7.7 mg/dL (8.5-10.1) Phosphorus Level 2.2 mg/dL (2.6-4.7) Magnesium Level 1.7 mg/dL (1.8-2.4) Albumin 3.0 g/dL (3.4-5.0) Results All relevant outside records, renal labs, imaging studies, telemetry/EKG's were reviewed. Conchitafation of Admission Dx: Justifications for Admission: Justification of Admission Dx: N/A ELIANE STRINGER MD November 07, 2021 09:34
--- NOTE | 2021-11-07 10:32 | PN ---
PROGRESS NOTES Date of Service DATE: 11/07/21 TIME: 10:30 Subjective Subjective denies complaints resting in bed Objective Objective Vital Signs Date Time Temp Pulse Resp B/P (MAP) Pulse Ox O2 Delivery O2 Flow Rate FiO2 11/07/21 09:10 94 Room Air 11/07/21 07:00 98.2 63 18 101/53 (69) 98.2 Intake and Output 11/07/21 07:00 Intake Total 852 ml Output Total 1225 ml Balance -373 ml Intake Oral 450 ml Blood Product IV Normal Saline Flush 402 ml Output Urine Total 1225 ml # Voids 1 Physical Exam Physical Exam NAD, comfortable Nonlabored respirations ga draining yellow urine Diagnosis PROBLEM LIST Problems Medical Problems: (1) Acute renal injury Status: Acute (2) Anemia Status: Acute (3) Failure to thrive in adult Status: Acute (4) Weakness generalized Status: Acute Assessment Assessment Problems Medical Problems: (1) Acute renal injury Status: Acute (2) Anemia Status: Acute (3) Failure to thrive in adult Status: Acute (4) Weakness generalized Status: Acute Plan Plan of Care Bilateral Hydronephrosis, CHRISTIANO Ga in place. 700mL retained volume. Good urine output. Ct a/p reviewed. Severe bilat hydro, diffuse bladder wall thickening suggestion chronic poor bladder emptying. Creatinine trending down since admission Suspect obstructive uropathy due to poor bladder emptying. Renal function is improving. No indication for surgical intervention at this point. Would continue ga for next 3-4 days then attempt voiding trial. Pt states she cannot f/u outpatient--request social work involvement. Will try to do VT prior to discharge. If fails, it is possible she needs chronic indwelling ga or to learn SIC for bladder management. 11/07: Cr continues to trend down. 1.6 today. Voiding trial prior to d/c Principal Military Analyst following for uterine prolapse repeat renal ultrasound in one week Comment Review of Relevant I have reviewed the following items jyoti (where applicable) has been applied. Labs Laboratory Tests Test 11/06/21 03:55 11/07/21 04:00 Hemoglobin 7.6 g/dL (12.0-15.5) 7.5 g/dL (12.0-15.5) Hematocrit 24.6 % (36.0-47.0) 24.1 % (36.0-47.0) Mean Corpuscular Hemoglobin Concent 31 g/dL (31-37) 31 g/dL (31-37) Sodium Level 141 mmol/L (136-145) 141 mmol/L (136-145) Potassium Level 4.1 mmol/L (3.5-5.1) 4.5 mmol/L (3.5-5.1) Chloride Level 111 mmol/L (98-107) 111 mmol/L (98-107) Carbon Dioxide Level 23 mmol/L (21-32) 23 mmol/L (21-32) Anion Gap 7 (6-14) 7 (6-14) Blood Urea Nitrogen 34 mg/dL (7-20) 34 mg/dL (7-20) Creatinine 1.8 mg/dL (0.6-1.0) 1.6 mg/dL (0.6-1.0) Estimated GFR (Cockcroft-Gault) 27.7 31.8 Glucose Level 81 mg/dL (70-99) 86 mg/dL (70-99) Calcium Level 7.4 mg/dL (8.5-10.1) 7.7 mg/dL (8.5-10.1) Phosphorus Level 2.2 mg/dL (2.6-4.7) 2.2 mg/dL (2.6-4.7) Magnesium Level 1.8 mg/dL (1.8-2.4) 1.7 mg/dL (1.8-2.4) Albumin 2.4 g/dL (3.4-5.0) 3.0 g/dL (3.4-5.0) White Blood Count 6.6 x10^3/uL (4.0-11.0) Red Blood Count 3.31 x10^6/uL (3.50-5.40) Mean Corpuscular Volume 73 fL (79-100) Mean Corpuscular Hemoglobin 23 pg (25-35) Red Cell Distribution Width 27.0 % (11.5-14.5) Platelet Count 324 x10^3/uL (140-400) Neutrophils (%) (Auto) 70 % (31-73) Lymphocytes (%) (Auto) 18 % (24-48) Monocytes (%) (Auto) 8 % (0-9) Eosinophils (%) (Auto) 3 % (0-3) Basophils (%) (Auto) 1 % (0-3) Neutrophils # (Auto) 4.6 x10^3/uL (1.8-7.7) Lymphocytes # (Auto) 1.2 x10^3/uL (1.0-4.8) Monocytes # (Auto) 0.5 x10^3/uL (0.0-1.1) Eosinophils # (Auto) 0.2 x10^3/uL (0.0-0.7) Basophils # (Auto) 0.1 x10^3/uL (0.0-0.2) Laboratory Tests Test 11/07/21 04:00 White Blood Count 6.6 x10^3/uL (4.0-11.0) Red Blood Count 3.31 x10^6/uL (3.50-5.40) Hemoglobin 7.5 g/dL (12.0-15.5) Hematocrit 24.1 % (36.0-47.0) Mean Corpuscular Volume 73 fL (79-100) Mean Corpuscular Hemoglobin 23 pg (25-35) Mean Corpuscular Hemoglobin Concent 31 g/dL (31-37) Red Cell Distribution Width 27.0 % (11.5-14.5) Platelet Count 324 x10^3/uL (140-400) Neutrophils (%) (Auto) 70 % (31-73) Lymphocytes (%) (Auto) 18 % (24-48) Monocytes (%) (Auto) 8 % (0-9) Eosinophils (%) (Auto) 3 % (0-3) Basophils (%) (Auto) 1 % (0-3) Neutrophils # (Auto) 4.6 x10^3/uL (1.8-7.7) Lymphocytes # (Auto) 1.2 x10^3/uL (1.0-4.8) Monocytes # (Auto) 0.5 x10^3/uL (0.0-1.1) Eosinophils # (Auto) 0.2 x10^3/uL (0.0-0.7) Basophils # (Auto) 0.1 x10^3/uL (0.0-0.2) Sodium Level 141 mmol/L (136-145) Potassium Level 4.5 mmol/L (3.5-5.1) Chloride Level 111 mmol/L (98-107) Carbon Dioxide Level 23 mmol/L (21-32) Anion Gap 7 (6-14) Blood Urea Nitrogen 34 mg/dL (7-20) Creatinine 1.6 mg/dL (0.6-1.0) Estimated GFR (Cockcroft-Gault) 31.8 Glucose Level 86 mg/dL (70-99) Calcium Level 7.7 mg/dL (8.5-10.1) Phosphorus Level 2.2 mg/dL (2.6-4.7) Magnesium Level 1.7 mg/dL (1.8-2.4) Albumin 3.0 g/dL (3.4-5.0) Microbiology 11/05/21 Urine Culture - Final, Complete 11/03/21 Blood Culture - Preliminary, Resulted NO GROWTH AFTER 3 DAYS Medications Current Medications Sodium Chloride 1,000 ml @ 999 mls/hr 1X ONCE IV Last administered on 11/03/21at 21:00; Start 11/03/21 at 20:00; Stop 11/03/21 at 21:31; Status DC Sodium Chloride 1,000 ml @ 75 mls/hr [id number] IV Last administered on 11/04/21 13:12; Start 11/03/21 at 22:00; Stop 11/04/21 at 21:59; Status DC Ceftriaxone Sodium (Rocephin) 1 gm 1X ONCE IVP Last administered on 11/04/21at 01:46; Start 11/03/21 at 23:00; Stop 11/03/21 at 23:01; Status DC Ceftriaxone Sodium (Rocephin) 1 gm Q24H IVP Last administered on 11/06/21at 09:26; Start 11/04/21 at 11:00 Doxycycline Hyclate (Vibra-Tab) 100 mg BID PO Last administered on 11/07/21 09:09; Start 11/04/21 at 11:00 Ondansetron HCl (Zofran) 4 mg PRN Q6HRS PRN IVP NAUSEA/VOMITING Last administered on 11/06/21at 20:38; Start 11/04/21 at 10:45 Calcium Carbonate/ Glycine (Tums) 500 mg PRN Q3HRS PRN PO UPSET STOMACH Last administered on 11/06/21 14:02; Start 11/04/21 at 10:45 Info (Non-Icu Electrolyte Protocol) 1 ea PRN DAILY PRN MC SEE COMMENTS; Start 11/04/21 at 10:45 Oxycodone/ Acetaminophen (Percocet 5/325) 1 tab PRN Q4HRS PRN PO MILD PAIN, 1ST CHOICE Last administered on 11/07/21at 09:10; Start 11/04/21 at 10:45 Oxycodone/ Acetaminophen (Percocet 5/325) 2 tab PRN Q4HRS PRN PO MODERATE PAIN, SEVERE PAIN Last administered on 11/07/21at 03:30; Start 11/04/21 at 10:45 Acetaminophen (Tylenol) 650 mg PRN Q6HRS PRN PO Headaches, Temp > 101.5F; Start 11/04/21 at 10:45 Senna/Docusate Sodium (Senna Plus) 1 tab BID PO Last administered on 11/06/21at 20:38; Start 11/04/21 at 11:00 Magnesium Sulfate 50 ml @ 25 mls/hr PRN DAILY PRN IV for Mag < 1.7 on am labs; Start 11/04/21 at 12:45 Lactobacillus Rhamnosus (Culturelle) 1 cap BID PO Last administered on 11/07/21at 09:09; Start 11/04/21 at 21:00 Magnesium Sulfate 50 ml @ 25 mls/hr 1X ONCE IV Last administered on 11/05/21at 16:15; Start 11/05/21 at 11:00; Stop 11/05/21 at 12:59; Status DC Albumin Human 100 ml @ 100 mls/hr TID IV Last administered on 11/07/21at 09:09; Start 11/05/21 at 14:00; Stop 11/07/21 at 09:59; Status DC Multivitamins (Thera M Plus) 1 tab DAILY PO Last administered on 11/07/21at 09:09; Start 11/06/21 at 09:00 Ascorbic Acid (Vitamin C) 1,000 mg DAILY PO Last administered on 11/07/21at 09:10; Start 11/06/21 at 09:00 Iron Sucrose 400 mg/Sodium Chloride 270 ml @ 90 mls/hr 1X ONCE IV Last administered on 11/06/21at 15:41; Start 11/06/21 at 15:00; Stop 11/06/21 at 17:59; Status DC Pantoprazole Sodium (Protonix) 40 mg DAILYAC PO Last administered on 11/07/21at 09:09; Start 11/07/21 at 07:30 Magnesium Sulfate 50 ml @ 25 mls/hr 1X ONCE IV ; Start 11/07/21 at 09:00; Stop 11/07/21 at 10:59 Active Scripts Active Reported Advil Dual Action 250Mg-125Mg (Ibuprofen/Acetaminophen) 1 Each Tablet 1 Each PO TID PRN PRN Vitals/I & O Vital Sign - Last 24 Hours 11/06/21 11/06/21 11/06/21 11/06/21 11:00 14:55 19:00 20:20 Temp 98.0 98.5 98.8 98.0 98.5 98.8 Pulse 84 75 80 Resp 18 18 20 B/P (MAP) 102/61 (75) 107/64 (78) 117/75 (89) Pulse Ox 94 96 94 O2 Delivery Room Air Room Air Room Air Room Air 11/06/21 11/06/21 11/06/21 11/07/21 20:38 21:08 23:00 03:00 Temp 98.3 98.2 98.3 98.2 Pulse 66 66 Resp 18 18 B/P (MAP) 109/64 (79) 108/62 (77) Pulse Ox 94 94 95 94 O2 Delivery Room Air Room Air Room Air Room Air 11/07/21 11/07/21 11/07/21 11/07/21 03:30 04:00 07:00 08:00 Temp 98.2 98.2 Pulse 63 Resp 18 B/P (MAP) 101/53 (69) Pulse Ox 95 95 94 O2 Delivery Room Air Room Air Room Air Room Air 11/07/21 09:10 Pulse Ox 94 O2 Delivery Room Air Intake and Output 11/06/21 11/06/21 11/07/21 15:00 23:00 07:00 Intake Total 330 ml 402 ml 120 ml Output Total 625 ml 600 ml Balance 330 ml -223 ml -480 ml BLANCA HOWE November 07, 2021 10:32
[2021-11-07 10:42] VITALS: BP 106/63
--- NOTE | 2021-11-07 10:58 | PDOC ---
Date of Service: DATE: 11/07/21 TIME: 10:54 Subjective: Subjective: No GI complaints. 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 Vital Signs: Vital Signs Date Time Temp Pulse Resp B/P (MAP) Pulse Ox O2 Delivery O2 Flow Rate FiO2 11/07/21 10:42 98.2 77 18 106/63 (77) 92 Room Air 98.2 Labs: Laboratory Tests Test 11/07/21 04:00 White Blood Count 6.6 x10^3/uL Red Blood Count 3.31 x10^6/uL Hemoglobin 7.5 g/dL Hematocrit 24.1 % Mean Corpuscular Volume 73 fL Mean Corpuscular Hemoglobin 23 pg Mean Corpuscular Hemoglobin Concent 31 g/dL Red Cell Distribution Width 27.0 % Platelet Count 324 x10^3/uL Neutrophils (%) (Auto) 70 % Lymphocytes (%) (Auto) 18 % Monocytes (%) (Auto) 8 % Eosinophils (%) (Auto) 3 % Basophils (%) (Auto) 1 % Neutrophils # (Auto) 4.6 x10^3/uL Lymphocytes # (Auto) 1.2 x10^3/uL Monocytes # (Auto) 0.5 x10^3/uL Eosinophils # (Auto) 0.2 x10^3/uL Basophils # (Auto) 0.1 x10^3/uL Sodium Level 141 mmol/L Potassium Level 4.5 mmol/L Chloride Level 111 mmol/L Carbon Dioxide Level 23 mmol/L Anion Gap 7 Blood Urea Nitrogen 34 mg/dL Creatinine 1.6 mg/dL Estimated GFR (Cockcroft-Gault) 31.8 Glucose Level 86 mg/dL Calcium Level 7.7 mg/dL Phosphorus Level 2.2 mg/dL Magnesium Level 1.7 mg/dL Albumin 3.0 g/dL PE: GEN: NAD LUNGS: CTAB HEART: RRR ABD: S/ND/NT NEURO/PSYCH: A & O 3, flat A/P: CLAUDIA - stable, no previous 'scopes Heartburn - better, on PPI + Tums Debility, CHRISTIANO, hydronephrosis, uterine prolapse -- Address other issues, plan for outpt EGD and colonoscopy. Justicifation of Admission Dx: Justifications for Admission: Justification of Admission Dx: N/A WILLIAM DUARTE 10, 2022 10:58
[2021-11-07] MEDS: cefTRIAXone IV Push 1 GM VIAL. IVP SCH (12:07)
[2021-11-07] MEDS: CALCIUM CARBONATE 500 MG TAB.CHEW PO PRN (14:58)
[2021-11-07 15:00] VITALS: BP 111/62
--- NOTE | 2021-11-07 15:16 | PDOC ---
[employer] PROGRESS NOTE Date of Service DOS: DATE: 11/07/21 TIME: 15:14 Chief Complaint Chief Complaint Uterine prolapse Right-sided pneumonia likely bacterial gram-negative possible aspiration Microcytic anemia due to CLAUDIA adult failure to thrive, CHRISTIANO likely obstructive uropathy Bilateral hydronephrosis Acute on chronic urinary retention severe protein malnutrition reported history of scoliosis Right asymptomatic hepatic cyst greater than 4 cm Gynecology consulted for uterine prolapse and recommended nonsurgical management GI consult for anemia and hepatic cysts We will start IV iron infusion today and consider outpatient iron supplement replacement Trend hemoglobin Appreciate nephrology Recs Urology consultedno surgical intervention at this time. Continue indwelling Stevenson and possible voiding trial before discharge -PT/OT -Nutrition consult -DVT prophylaxis -Rocephin Doxy for presumed pneumonia.and UTI History of Present Illness History of Present Illness 11/06/2021 No acute events overnight. Patient seen examined bedside. Patient confused about what she needs to do for her medical management. She does not follow closely with any primary doctor. Urology evaluated and recommended continuing indwelling Stevenson catheter and no surgical management at this time. Patient may need voiding trial before discharge as she does not have good follow with any primary physician. Hemoglobin today is at 7.6 after 2 units PRBC. No obvious sources of bleeding. Anemia likely related to iron deficiency anemia. Patient will need SNF placement. Patient's chart, labs, images were reviewed and discussed with RN 5/8 Evaluated examined at bedside. Patient reported she was feeling "bad." Said she felt very "crunched up in her bed." Offered to help her boost up she declined. Declining many interventions. Creatinine a little bit improved renal sent from yesterday showing left hydronephrosis unable to visualize right kidney we will consult interventional radiology to see if neph tubes are an option. Nephrology recommendations reviewed. Continue antibiotics for pneumonia and UTI. 11/06/2021 No acute events overnight. Patient seen examined bedside. AF and VSS still feels about the same. Hemoglobin stable at 7.5. Creatinine improving to 1.6 from 2.0. Stevenson catheter still in place. Magnesium 1.7 replace with IV magnesium sulfate. Patient's chart, labs, images were reviewed and discussed with RN Vitals/I&O Vitals/I&O: Vital Signs Date Time Temp Pulse Resp B/P (MAP) Pulse Ox O2 Delivery O2 Flow Rate FiO2 11/07/21 10:42 98.2 77 18 106/63 (77) 92 Room Air 98.2 I & O 11/06/21 11/06/21 11/07/21 15:00 23:00 07:00 Intake Total 330 ml 402 ml 120 ml Output Total 625 ml 600 ml Balance 330 ml -223 ml -480 ml Physical Exam General: Alert, Oriented X3, Cooperative, No acute distress Heart: Regular rate, Normal S1, Normal S2, No murmurs Lungs: Clear Abdomen: Normal bowel sounds, Soft, No tenderness, No hepatosplenomegaly, No masses Extremities: No clubbing, No cyanosis, No edema, Normal pulses, No tenderness/swelling Skin: No rashes, No breakdown Labs Labs: Laboratory Tests Test 11/07/21 04:00 White Blood Count 6.6 x10^3/uL (4.0-11.0) Red Blood Count 3.31 x10^6/uL (3.50-5.40) Hemoglobin 7.5 g/dL (12.0-15.5) Hematocrit 24.1 % (36.0-47.0) Mean Corpuscular Volume 73 fL (79-100) Mean Corpuscular Hemoglobin 23 pg (25-35) Mean Corpuscular Hemoglobin Concent 31 g/dL (31-37) Red Cell Distribution Width 27.0 % (11.5-14.5) Platelet Count 324 x10^3/uL (140-400) Neutrophils (%) (Auto) 70 % (31-73) Lymphocytes (%) (Auto) 18 % (24-48) Monocytes (%) (Auto) 8 % (0-9) Eosinophils (%) (Auto) 3 % (0-3) Basophils (%) (Auto) 1 % (0-3) Neutrophils # (Auto) 4.6 x10^3/uL (1.8-7.7) Lymphocytes # (Auto) 1.2 x10^3/uL (1.0-4.8) Monocytes # (Auto) 0.5 x10^3/uL (0.0-1.1) Eosinophils # (Auto) 0.2 x10^3/uL (0.0-0.7) Basophils # (Auto) 0.1 x10^3/uL (0.0-0.2) Sodium Level 141 mmol/L (136-145) Potassium Level 4.5 mmol/L (3.5-5.1) Chloride Level 111 mmol/L (98-107) Carbon Dioxide Level 23 mmol/L (21-32) Anion Gap 7 (6-14) Blood Urea Nitrogen 34 mg/dL (7-20) Creatinine 1.6 mg/dL (0.6-1.0) Estimated GFR (Cockcroft-Gault) 31.8 Glucose Level 86 mg/dL (70-99) Calcium Level 7.7 mg/dL (8.5-10.1) Phosphorus Level 2.2 mg/dL (2.6-4.7) Magnesium Level 1.7 mg/dL (1.8-2.4) Albumin 3.0 g/dL (3.4-5.0) Assessment and Plan Assessmemt and Plan Problems Medical Problems: (1) Acute renal injury Status: Acute (2) Anemia Status: Acute (3) Failure to thrive in adult Status: Acute (4) Weakness generalized Status: Acute Comment Review of Relevant I have reviewed the following items jyoti (where applicable) has been applied. Medications: Current Medications Medications (Trade) Dose Ordered Sig/Kaleigh Route PRN Reason Start Time Stop Time Status Last Admin Dose Admin Pantoprazole Sodium (Protonix) 40 mg DAILYAC PO 11/07/21 07:30 11/07/21 09:09 Magnesium Sulfate 50 ml @ 25 mls/hr 1X ONCE IV 11/07/21 09:00 11/07/21 10:59 DC 11/07/21 12:11 Justifications for Admission Other Justification BEE OLIVEROS MD November 07, 2021 15:16
--- NOTE | 2021-11-07 15:30 | NUR ---
Wound/Ostomy Care Wound Type/Assessment: Patient seen per wound care consult. Patient is very well known to us from the clinic as her son has been a penitentiary patient of ours for years. It has been noticed the progressive decline in the patient's overall health and condition. Patient is persistently declining any help and refuses any medical attention. Patient and patient's son both have mental disabilities that are not treated. Patient has severe scoliosis that again has not been assessed by any physician and patient sleeps at home in her kitchen chair. There are stairs in the patient's house and it takes her over 45 min just to get down them and into her care to go anywhere. Patient's home living conditions are very poor and there is no working toilet, stool and urine throughout the patient's room, bed, clothes etc. the neighbor had to report what he had been witnessing and when the patient's son called him at 1:00 am needing help with his mother whom was in bed unable to get up. Patient has a stage III PU to the lower back, the feet are resolved as well as the right shoulder. Surprisingly the patient does not have more wounds than this considering her physical condition. Wound cleansed, assessed, and measured. Treatment Recommendations/Plan: Cleanse wound and pat dry. Recommendations for xeroform gauze and foam dressing. Change every 2-3 days. Patient needs to minimize pressure to problem areas, and turn Q2. A foam for protection left on left hip but area remains blanchable. Education provided: Patient educated on wound care dressing changes, POC, lifestyle changes. Offloading surface/device: Patient using walker in room, but has refused out side of hospital, Patient resting in chair and using pillows for shoulder cushion when resting one the right side. Recommended Referrals/Tests: Patient would benefit from SNU in order to advoid readmission and in order to return home one day and be able to care for herself. Discharge Recommendations for dressings: Dressing change instructions left in room. Patient left in chair and call light in reach. Wound care will follow on 11/15/21.
--- NOTE | 2021-11-07 15:56 | NUR ---
SS following up with discharge planning. SS reviewed pt chart and discussed with pt RN. Pt is currently on room air. Pt on IV Rocephin. PT/OT recommended intermediate unit. SS has not received any response from [facility] at this time. Pt's neighbor came to hospital and reported that he also hotlined pt to [facility] and has communicated with [facility] worker, Sandee Michele, . SS contacted Sandee Michele to follow up on hotline reports and received no response. SS left voicemail requesting return call. SS met with pt to discuss discharge planning and intermediate unit. Pt stating that she is not going to intermediate unit. Pt reported that she is going home with her son. SS discussed safety concerns in the home and pt requested that SS leave the room. SS to follow up with pt tomorrow. SS will continue to follow for discharge planning. Addendum: 11/07/21 at 1606 by ARCHANA ALSTON SS Pt reporting that she has [employer] Medicare Advantage plan. Case Management and Registration have been notified.
[2021-11-07 19:00] VITALS: BP 117/66
[2021-11-07 23:00] VITALS: BP 113/68
[2021-11-08 03:00] VITALS: BP 104/64
[2021-11-08] MEDS: ONDANSETRON PF 4 MG/2 ML VIAL. IVP PRN (03:01)
[2021-11-08 07:00] VITALS: BP 118/67
[2021-11-08 08:35] LABS: BASO # 0.1 x10^3/uL (0.0-0.2); BASO % 1 % (0-3); EOS # 0.2 x10^3/uL (0.0-0.7); EOS % 3 % (0-3); HEMATOCRIT 24.7 % (36.0-47.0); HEMOGLOBIN 7.7 g/dL (12.0-15.5); LYMPH # 1.3 x10^3/uL (1.0-4.8); LYMPH % 18 % (24-48); MEAN CORPUSCULAR HEMOGLOBIN 23 pg (25-35); MEAN CORPUSCULAR HGB CONC 31 g/dL (31-37); MEAN CORPUSCULAR VOLUME 73 fL (79-100); MONO # 0.6 x10^3/uL (0.0-1.1); MONO % 9 % (0-9); NEUT % 69 % (31-73); PLATELET COUNT 294 x10^3/uL (140-400); RED BLOOD COUNT 3.37 x10^6/uL (3.50-5.40); RED CELL DISTRIBUTION WIDTH 28.4 % (11.5-14.5); WHITE BLOOD COUNT 7.2 x10^3/uL (4.0-11.0)
[2021-11-08] MEDS: DOXYCYCLINE HYCLATE 100 MG TABLET PO SCH ×2 (09:00→21:00)
[2021-11-08 09:06] LABS: ALBUMIN 2.9 g/dL (3.4-5.0); CALCIUM 8.2 mg/dL (8.5-10.1); CREATININE 1.6 mg/dL (0.6-1.0); GFR 31.8; MAGNESIUM 2.1 mg/dL (1.8-2.4); PHOSPHORUS 2.9 mg/dL (2.6-4.7); POTASSIUM 4.8 mmol/L (3.5-5.1)
--- NOTE | 2021-11-08 09:35 | PDOC ---
Date of Service: DATE: 11/08/21 TIME: 09:30 Subjective: Subjective: Doing better, just ate breakfast. No GI complaints. Says her son might come visit today. Wants to go home. Tells me about dogs she has had in the past. Says she has "no idea" about TEAROOM HOST surgery. Objective: Objective: Reviewed other notes - not ideal home situation. Vital Signs: Vital Signs Date Time Temp Pulse Resp B/P (MAP) Pulse Ox O2 Delivery O2 Flow Rate FiO2 11/08/21 07:00 97.6 65 18 118/67 (84) 95 Room Air 97.6 Labs: Laboratory Tests Test 11/08/21 06:40 White Blood Count 7.2 x10^3/uL Red Blood Count 3.37 x10^6/uL Hemoglobin 7.7 g/dL Hematocrit 24.7 % Mean Corpuscular Volume 73 fL Mean Corpuscular Hemoglobin 23 pg Mean Corpuscular Hemoglobin Concent 31 g/dL Red Cell Distribution Width 28.4 % Platelet Count 294 x10^3/uL Neutrophils (%) (Auto) 69 % Lymphocytes (%) (Auto) 18 % Monocytes (%) (Auto) 9 % Eosinophils (%) (Auto) 3 % Basophils (%) (Auto) 1 % Neutrophils # (Auto) 5.0 x10^3/uL Lymphocytes # (Auto) 1.3 x10^3/uL Monocytes # (Auto) 0.6 x10^3/uL Eosinophils # (Auto) 0.2 x10^3/uL Basophils # (Auto) 0.1 x10^3/uL Sodium Level 142 mmol/L Potassium Level 4.8 mmol/L Chloride Level 109 mmol/L Carbon Dioxide Level 23 mmol/L Anion Gap 10 Blood Urea Nitrogen 34 mg/dL Creatinine 1.6 mg/dL Estimated GFR (Cockcroft-Gault) 31.8 Glucose Level 76 mg/dL Calcium Level 8.2 mg/dL Phosphorus Level 2.9 mg/dL Magnesium Level 2.1 mg/dL Albumin 2.9 g/dL BLOOD CULTURE Preliminary NO GROWTH AFTER 4 DAYS PE: GEN: NAD LUNGS: CTAB HEART: RRR ABD: S/ND/NT NEURO/PSYCH: A & O 3, more talkative today A/P: CLAUDIA - stable s/p transfusions (pRBCs and iron) H/o heartburn Pelvic organ prolapse - don't think plans for surgery as inpt -- Outpt scopes after other issues addressed - imagine follow-up might be difficult. Continue iron and PPI. Justicifation of Admission Dx: Justifications for Admission: Justification of Admission Dx: N/A WILLIAM DUARTE November 08, 2021 09:35
[2021-11-08] MEDS: SENNOSIDES/DOCUSATE 8.6/50MG TABLET. PO SCH ×2 (09:38→20:51)
[2021-11-08] MEDS: MULTIVITAMIN with MINERAL TABLET. PO SCH (09:38)
[2021-11-08] MEDS: LACTOBACILLUS RHAMNOSUS GG 1 CAPSULE. PO SCH ×2 (09:38→20:51)
[2021-11-08] MEDS: ASCORBIC ACID 1,000 MG TABLET PO SCH (09:39)
[2021-11-08] MEDS: oxyCODONE/APAP 5/325 1 TAB TABLET PO PRN ×2 (09:39→20:52)
[2021-11-08] MEDS: PANTOPRAZOLE 40 MG TABLET.DR. PO SCH (09:39)
--- NOTE | 2021-11-08 10:09 | PDOC ---
DATE OF SERVICE DATE: 11/08/21 TIME: 10:08 SUBJECTIVE ROS Stable denies SOB, No N/V . Had Breakfast OBJECTIVE Vital Signs Vital Signs Date Time Temp Pulse Resp B/P (MAP) Pulse Ox O2 Delivery O2 Flow Rate FiO2 11/08/21 09:39 95 Room Air 11/08/21 07:00 97.6 65 18 118/67 (84) 97.6 I & 0 Intake and Output 11/08/21 07:00 Intake Total 890 ml Output Total 1150 ml Balance -260 ml Intake Oral 890 ml Output Urine Total 1150 ml PHYSICAL EXAM Physical Exam General Appearance: no Distress HEEN OM moist, anicteric, On RA Neck: Supple CVS: S1 S2 Resp: CTA, no Acc. Muscle use GI: BS +ve NO Bruit Non Tender Non Distended : no CVA tenderness; no Suprapubic Tenderness, Ga + Derm No Rash Neuro- Moving ileana xtrem, Grossly Normal Psych Cooperative DIAGNOSIS/ASSESSMENT Assessment & Plan Acute kidney injury. Nonvisualized right kidney, hydronephrosis of left kidney. Ga catheter in place; Creat Trended down, stable . UA Cx no growth Supportive care , avoid Nephrotoxins Hydronephrosis: Urology following , No indication for surgical intervention at this point.Recommend to continue ga for next 3-4 days then attempt voiding trial AbnormaL CT abdomen pelvis - severe bilateral hydronephrosis. No obstructing process is seen but sensitivity is limited. Hypotension POA : stable Pleural effusion - Moderate right and small left pleural effusions. Severe anasarca and mild abdominal and pelvic ascites. Distal colon diverticulosis. Severe hypoalbuminemia - contributing to anasarca reported on CT . Pr/Cr ordered Severe anemia at presentation: Consider hematology and/or GI evaluation Recd Blood transfusion on 11/05 . No Labs today . Severe Fe Deficiency COMMENT/RELEVANT DATA Meds Current Medications Medications (Trade) Dose Ordered Sig/Kaleigh Start Time Stop Time Status Last Admin Dose Admin Acetaminophen (Tylenol) 650 mg PRN Q6HRS PRN 11/04/21 10:45 Albumin Human 100 ml @ 100 mls/hr TID 11/05/21 14:00 11/07/21 09:59 DC 11/07/21 09:09 100 MLS/HR Ascorbic Acid (Vitamin C) 1,000 mg DAILY 11/06/21 09:00 11/08/21 09:39 1,000 MG Calcium Carbonate/ Glycine (Tums) 500 mg PRN Q3HRS PRN 11/04/21 10:45 11/07/21 14:58 500 MG Ceftriaxone Sodium (Rocephin) 1 gm Q24H 11/04/21 11:00 11/07/21 12:07 1 GM Doxycycline Hyclate (Vibra-Tab) 100 mg BID 11/04/21 11:00 11/08/21 09:00 100 MG Info (Non-Icu Electrolyte Protocol) 1 ea PRN DAILY PRN 11/04/21 10:45 Iron Sucrose 400 mg/Sodium Chloride 270 ml @ 90 mls/hr 1X ONCE 11/06/21 15:00 11/06/21 17:59 DC 11/06/21 15:41 90 MLS/HR Lactobacillus Rhamnosus (Culturelle) 1 cap BID 11/04/21 21:00 11/08/21 09:38 1 CAP Magnesium Sulfate 50 ml @ 25 mls/hr 1X ONCE 11/07/21 09:00 11/07/21 10:59 DC 11/07/21 12:11 25 MLS/HR Multivitamins (Thera M Plus) 1 tab DAILY 11/06/21 09:00 11/08/21 09:38 1 TAB Ondansetron HCl (Zofran) 4 mg PRN Q6HRS PRN 11/04/21 10:45 11/08/21 03:01 4 MG Oxycodone/ Acetaminophen (Percocet 5/325) 2 tab PRN Q4HRS PRN 11/04/21 10:45 11/08/21 09:39 2 TAB Pantoprazole Sodium (Protonix) 40 mg DAILYAC 11/07/21 07:30 11/08/21 09:39 40 MG Senna/Docusate Sodium (Senna Plus) 1 tab BID 11/04/21 11:00 11/08/21 09:38 1 TAB Sodium Chloride 1,000 ml @ 75 mls/hr [id number] 11/03/21 22:00 11/04/21 21:59 DC 11/04/21 13:12 75 MLS/HR Lab Laboratory Tests Test 11/08/21 06:40 White Blood Count 7.2 x10^3/uL (4.0-11.0) Red Blood Count 3.37 x10^6/uL (3.50-5.40) Hemoglobin 7.7 g/dL (12.0-15.5) Hematocrit 24.7 % (36.0-47.0) Mean Corpuscular Volume 73 fL (79-100) Mean Corpuscular Hemoglobin 23 pg (25-35) Mean Corpuscular Hemoglobin Concent 31 g/dL (31-37) Red Cell Distribution Width 28.4 % (11.5-14.5) Platelet Count 294 x10^3/uL (140-400) Neutrophils (%) (Auto) 69 % (31-73) Lymphocytes (%) (Auto) 18 % (24-48) Monocytes (%) (Auto) 9 % (0-9) Eosinophils (%) (Auto) 3 % (0-3) Basophils (%) (Auto) 1 % (0-3) Neutrophils # (Auto) 5.0 x10^3/uL (1.8-7.7) Lymphocytes # (Auto) 1.3 x10^3/uL (1.0-4.8) Monocytes # (Auto) 0.6 x10^3/uL (0.0-1.1) Eosinophils # (Auto) 0.2 x10^3/uL (0.0-0.7) Basophils # (Auto) 0.1 x10^3/uL (0.0-0.2) Sodium Level 142 mmol/L (136-145) Potassium Level 4.8 mmol/L (3.5-5.1) Chloride Level 109 mmol/L (98-107) Carbon Dioxide Level 23 mmol/L (21-32) Anion Gap 10 (6-14) Blood Urea Nitrogen 34 mg/dL (7-20) Creatinine 1.6 mg/dL (0.6-1.0) Estimated GFR (Cockcroft-Gault) 31.8 Glucose Level 76 mg/dL (70-99) Calcium Level 8.2 mg/dL (8.5-10.1) Phosphorus Level 2.9 mg/dL (2.6-4.7) Magnesium Level 2.1 mg/dL (1.8-2.4) Albumin 2.9 g/dL (3.4-5.0) Results All relevant outside records, renal labs, imaging studies, telemetry/EKG's were reviewed. Justicifation of Admission Dx: Justifications for Admission: Justification of Admission Dx: N/A ELIANE STRINGER MD November 08, 2021 10:09
[2021-11-08 11:00] VITALS: BP 114/61
--- NOTE | 2021-11-08 11:22 | PDOC ---
MEDICAL STAFF SPECIALIST PROGRESS NOTE Date of Service: DATE: 11/08/21 TIME: : Subjective: Pt denies SOA or CP. Doing well Objective: Vital Signs: Vital Signs Date Time Temp Pulse Resp B/P (MAP) Pulse Ox O2 Delivery O2 Flow Rate FiO2 11/07/21 07:00 98.2 63 18 101/53 (69) 94 Room Air 98.2 Vital Signs Date Time Temp Pulse Resp B/P (MAP) Pulse Ox O2 Delivery O2 Flow Rate FiO2 11/08/21 10:29 95 Room Air 11/08/21 07:00 97.6 65 18 118/67 (84) 97.6 Labs: Laboratory Tests Test 11/08/21 06:40 White Blood Count 7.2 x10^3/uL (4.0-11.0) Red Blood Count 3.37 x10^6/uL (3.50-5.40) L Hemoglobin 7.7 g/dL (12.0-15.5) L Hematocrit 24.7 % (36.0-47.0) L Mean Corpuscular Volume 73 fL (79-100) L Mean Corpuscular Hemoglobin 23 pg (25-35) L Mean Corpuscular Hemoglobin Concent 31 g/dL (31-37) Red Cell Distribution Width 28.4 % (11.5-14.5) H Platelet Count 294 x10^3/uL (140-400) Neutrophils (%) (Auto) 69 % (31-73) Lymphocytes (%) (Auto) 18 % (24-48) L Monocytes (%) (Auto) 9 % (0-9) Eosinophils (%) (Auto) 3 % (0-3) Basophils (%) (Auto) 1 % (0-3) Neutrophils # (Auto) 5.0 x10^3/uL (1.8-7.7) Lymphocytes # (Auto) 1.3 x10^3/uL (1.0-4.8) Monocytes # (Auto) 0.6 x10^3/uL (0.0-1.1) Eosinophils # (Auto) 0.2 x10^3/uL (0.0-0.7) Basophils # (Auto) 0.1 x10^3/uL (0.0-0.2) Sodium Level 142 mmol/L (136-145) Potassium Level 4.8 mmol/L (3.5-5.1) Chloride Level 109 mmol/L (98-107) H Carbon Dioxide Level 23 mmol/L (21-32) Anion Gap 10 (6-14) Blood Urea Nitrogen 34 mg/dL (7-20) H Creatinine 1.6 mg/dL (0.6-1.0) H Estimated GFR (Cockcroft-Gault) 31.8 Glucose Level 76 mg/dL (70-99) Calcium Level 8.2 mg/dL (8.5-10.1) L Phosphorus Level 2.9 mg/dL (2.6-4.7) Magnesium Level 2.1 mg/dL (1.8-2.4) Albumin 2.9 g/dL (3.4-5.0) L Laboratory Tests 11/08/21 06:40 Laboratory Tests 11/08/21 06:40 Laboratory Tests 11/08/21 06:40 Physical Exam: GENERAL: No apparent distress. Alert and oriented. HEENT: Head normocephalic, atraumatic. NECK: Supple LUNGS: Clear to auscultation. HEART: RRR, S1, S2 present, pulses intact ABDOMEN: Soft, positive bowel sounds. EXTREMITIES: No cyanosis or edema. NEUROLOGIC: Normal speech, normal tone PSYCHIATRIC: Normal affect, normal mood. SKIN: No ulceration. Assessment & Plan: A/P 70y admitted for right-sided pneumonia 1.) Pelvic organ prolapse should not need intervention during this hospitalization 2.) Severe bilateral hydronephrosis nephrology and urology consulted. Stevenson in place. No surgical intervention felt to be necessary at this time 3.) Acute kidney injury Cr down to 1.6 3.) Urinary incontinence may be 2/2 to prolapse 4.) Menopause - asx 5.) Right-sided pneumonia on IV abx per hospitalists 6.) Severe anasarca and mild abdominal and pelvic ascites 7.) Diverticulosis 8.) Anemia Hgb 7.7 9.) Right asx hepatic cysts GI consulted 10.) Will cont to follow NEEL WHITE MD November 08, 2021 11:22
--- NOTE | 2021-11-08 12:00 | NUR ---
SS following up with discharge planning. SS reviewed pt chart and discussed with pt RN. Pt is currently on room air. Pt on IV Rocephin and PO Doxycycline. COVID19 PCR test pending. PT/OT recommended correction unit. SS met with pt and discussed. Pt adamantly declining correction unit. Pt stating that she will return to home and needs her clothes and shoes brought to the hospital. Pt reported that she will take care of things at home and requested that her son come to the hospital. Pt told SS to get out of the room. Physician notified. SS contact APS worker, Sandee Michele, , and discussed pt case. APS worker reported that they have done all they can do. She reported that she has went to the home and has offered services in the home. She reported that pt was offered deep cleaning and plumbing services. She reported that pt has refused all services at this time. She reported that pt has been provided with resources and contact information. She reported that pt is alert and oriented and APS "cannot force change". She reported that if pt refuses SNU pt will have to discharge to home and wait for "natural consequences." SS reported to APS worker that we would set up home healthcare services at discharge and would hotline pt at discharge due to unsafe living conditions. APS worker agreeable and reiterated that APS has done all they can do and cannot force change at this point and will have to wait for natural consequences. Case supervisor poultry farm and physician notified. SS will continue to follow for discharge planning.
[2021-11-08] MEDS: cefTRIAXone IV Push 1 GM VIAL. IVP SCH (12:14)
--- NOTE | 2021-11-08 14:07 | PN ---
PROGRESS NOTES Date of Service DATE: 11/08/21 TIME: 14:04 Subjective Subjective Pt comfortable in bed. Wondering about d/c. Objective Objective Vital Signs Date Time Temp Pulse Resp B/P (MAP) Pulse Ox O2 Delivery O2 Flow Rate FiO2 11/08/21 11:00 98.6 74 18 114/61 (78) 97 Room Air 98.6 Intake and Output 11/08/21 07:00 Intake Total 890 ml Output Total 1150 ml Balance -260 ml Intake Oral 890 ml Output Urine Total 1150 ml Physical Exam Physical Exam NAD AOx3 Nonlabored respirations Ga with yellow urine Diagnosis PROBLEM LIST Problems Medical Problems: (1) Acute renal injury Status: Acute (2) Anemia Status: Acute (3) Failure to thrive in adult Status: Acute (4) Weakness generalized Status: Acute Assessment Assessment Problems Medical Problems: (1) Acute renal injury Status: Acute (2) Anemia Status: Acute (3) Failure to thrive in adult Status: Acute (4) Weakness generalized Status: Acute Plan Plan of Care Bilateral Hydronephrosis, CHRISTIANO Ga in place. 700mL retained volume. Good urine output. Ct a/p reviewed. Severe bilat hydro, diffuse bladder wall thickening suggestion chronic poor bladder emptying. Creatinine trending down since admission Suspect obstructive uropathy due to poor bladder emptying. Renal function is improving. No indication for surgical intervention at this point. Would continue ga for next 3-4 days then attempt voiding trial. Pt states she cannot f/u outpatient--request social work involvement. Will try to do VT prior to discharge. If fails, it is possible she needs chronic indwelling ga or to learn SIC for bladder management. 11/07: Cr continues to trend down. 1.6 today. Voiding trial prior to d/c [employer] following for uterine prolapse repeat renal ultrasound in one week 11/08: Cr stable at 1.6. Voiding trial in AM May need to address POP if fails VT. May be contributing. [employer] following. Comment Review of Relevant I have reviewed the following items jyoti (where applicable) has been applied. Labs Laboratory Tests Test 11/07/21 04:00 11/08/21 06:40 White Blood Count 6.6 x10^3/uL (4.0-11.0) 7.2 x10^3/uL (4.0-11.0) Red Blood Count 3.31 x10^6/uL (3.50-5.40) 3.37 x10^6/uL (3.50-5.40) Hemoglobin 7.5 g/dL (12.0-15.5) 7.7 g/dL (12.0-15.5) Hematocrit 24.1 % (36.0-47.0) 24.7 % (36.0-47.0) Mean Corpuscular Volume 73 fL (79-100) 73 fL (79-100) Mean Corpuscular Hemoglobin 23 pg (25-35) 23 pg (25-35) Mean Corpuscular Hemoglobin Concent 31 g/dL (31-37) 31 g/dL (31-37) Red Cell Distribution Width 27.0 % (11.5-14.5) 28.4 % (11.5-14.5) Platelet Count 324 x10^3/uL (140-400) 294 x10^3/uL (140-400) Neutrophils (%) (Auto) 70 % (31-73) 69 % (31-73) Lymphocytes (%) (Auto) 18 % (24-48) 18 % (24-48) Monocytes (%) (Auto) 8 % (0-9) 9 % (0-9) Eosinophils (%) (Auto) 3 % (0-3) 3 % (0-3) Basophils (%) (Auto) 1 % (0-3) 1 % (0-3) Neutrophils # (Auto) 4.6 x10^3/uL (1.8-7.7) 5.0 x10^3/uL (1.8-7.7) Lymphocytes # (Auto) 1.2 x10^3/uL (1.0-4.8) 1.3 x10^3/uL (1.0-4.8) Monocytes # (Auto) 0.5 x10^3/uL (0.0-1.1) 0.6 x10^3/uL (0.0-1.1) Eosinophils # (Auto) 0.2 x10^3/uL (0.0-0.7) 0.2 x10^3/uL (0.0-0.7) Basophils # (Auto) 0.1 x10^3/uL (0.0-0.2) 0.1 x10^3/uL (0.0-0.2) Sodium Level 141 mmol/L (136-145) 142 mmol/L (136-145) Potassium Level 4.5 mmol/L (3.5-5.1) 4.8 mmol/L (3.5-5.1) Chloride Level 111 mmol/L (98-107) 109 mmol/L (98-107) Carbon Dioxide Level 23 mmol/L (21-32) 23 mmol/L (21-32) Anion Gap 7 (6-14) 10 (6-14) Blood Urea Nitrogen 34 mg/dL (7-20) 34 mg/dL (7-20) Creatinine 1.6 mg/dL (0.6-1.0) 1.6 mg/dL (0.6-1.0) Estimated GFR (Cockcroft-Gault) 31.8 31.8 Glucose Level 86 mg/dL (70-99) 76 mg/dL (70-99) Calcium Level 7.7 mg/dL (8.5-10.1) 8.2 mg/dL (8.5-10.1) Phosphorus Level 2.2 mg/dL (2.6-4.7) 2.9 mg/dL (2.6-4.7) Magnesium Level 1.7 mg/dL (1.8-2.4) 2.1 mg/dL (1.8-2.4) Albumin 3.0 g/dL (3.4-5.0) 2.9 g/dL (3.4-5.0) Laboratory Tests Test 11/08/21 06:40 White Blood Count 7.2 x10^3/uL (4.0-11.0) Red Blood Count 3.37 x10^6/uL (3.50-5.40) Hemoglobin 7.7 g/dL (12.0-15.5) Hematocrit 24.7 % (36.0-47.0) Mean Corpuscular Volume 73 fL (79-100) Mean Corpuscular Hemoglobin 23 pg (25-35) Mean Corpuscular Hemoglobin Concent 31 g/dL (31-37) Red Cell Distribution Width 28.4 % (11.5-14.5) Platelet Count 294 x10^3/uL (140-400) Neutrophils (%) (Auto) 69 % (31-73) Lymphocytes (%) (Auto) 18 % (24-48) Monocytes (%) (Auto) 9 % (0-9) Eosinophils (%) (Auto) 3 % (0-3) Basophils (%) (Auto) 1 % (0-3) Neutrophils # (Auto) 5.0 x10^3/uL (1.8-7.7) Lymphocytes # (Auto) 1.3 x10^3/uL (1.0-4.8) Monocytes # (Auto) 0.6 x10^3/uL (0.0-1.1) Eosinophils # (Auto) 0.2 x10^3/uL (0.0-0.7) Basophils # (Auto) 0.1 x10^3/uL (0.0-0.2) Sodium Level 142 mmol/L (136-145) Potassium Level 4.8 mmol/L (3.5-5.1) Chloride Level 109 mmol/L (98-107) Carbon Dioxide Level 23 mmol/L (21-32) Anion Gap 10 (6-14) Blood Urea Nitrogen 34 mg/dL (7-20) Creatinine 1.6 mg/dL (0.6-1.0) Estimated GFR (Cockcroft-Gault) 31.8 Glucose Level 76 mg/dL (70-99) Calcium Level 8.2 mg/dL (8.5-10.1) Phosphorus Level 2.9 mg/dL (2.6-4.7) Magnesium Level 2.1 mg/dL (1.8-2.4) Albumin 2.9 g/dL (3.4-5.0) Microbiology 11/05/21 Urine Culture - Final, Complete 11/03/21 Blood Culture - Preliminary, Resulted NO GROWTH AFTER 4 DAYS Medications Current Medications Sodium Chloride 1,000 ml @ 999 mls/hr 1X ONCE IV Last administered on 11/03/21at 21:00; Start 11/03/21 at 20:00; Stop 11/03/21 at 21:31; Status DC Sodium Chloride 1,000 ml @ 75 mls/hr [id number] IV Last administered on 11/04/21at 13:12; Start 11/03/21 at 22:00; Stop 11/04/21 at 21:59; Status DC Ceftriaxone Sodium (Rocephin) 1 gm 1X ONCE IVP Last administered on 11/04/21 01:46; Start 11/03/21 at 23:00; Stop 11/03/21 at 23:01; Status DC Ceftriaxone Sodium (Rocephin) 1 gm Q24H IVP Last administered on 11/08/21 12:14; Start 11/04/21 at 11:00 Doxycycline Hyclate (Vibra-Tab) 100 mg BID PO Last administered on 11/08/21 09:00; Start 11/04/21 at 11:00 Ondansetron HCl (Zofran) 4 mg PRN Q6HRS PRN IVP NAUSEA/VOMITING Last adminis tered on 11/08/21 03:01; Start 11/04/21 at 10:45 Calcium Carbonate/ Glycine (Tums) 500 mg PRN Q3HRS PRN PO UPSET STOMACH Last a dministered on 11/07/21 14:58; Start 11/04/21 at 10:45 Info (Non-Icu Electrolyte Protocol) 1 ea PRN DAILY PRN MC SEE COMMENTS; Start 11/04/21 at 10:45 Oxycodone/ Acetaminophen (Percocet 5/325) 1 tab PRN Q4HRS PRN PO MILD PAIN, 1ST CHOICE Last administered on 11/07/21at 09:10; Start 11/04/21 at 10:45 Oxycodone/ Acetaminophen (Percocet 5/325) 2 tab PRN Q4HRS PRN PO MODERATE PAIN, SEVERE PAIN Last administered on 11/08/21at 09:39; Start 11/04/21 at 10:45 Acetaminophen (Tylenol) 650 mg PRN Q6HRS PRN PO Headaches, Temp > 101.5F; Start 11/04/21 at 10:45 Senna/Docusate Sodium (Senna Plus) 1 tab BID PO Last administered on 11/08/21at 09:38; Start 11/04/21 at 11:00 Magnesium Sulfate 50 ml @ 25 mls/hr PRN DAILY PRN IV for Mag < 1.7 on am labs; Start 11/04/21 at 12:45 Lactobacillus Rhamnosus (Culturelle) 1 cap BID PO Last administered on 11/08/21at 09:38; Start 11/04/21 at 21:00 Magnesium Sulfate 50 ml @ 25 mls/hr 1X ONCE IV Last administered on 11/05/21at 16:15; Start 11/05/21 at 11:00; Stop 11/05/21 at 12:59; Status DC Albumin Human 100 ml @ 100 mls/hr TID IV Last administered on 11/07/21at 09:09; Start 11/05/21 at 14:00; Stop 11/07/21 at 09:59; Status DC Multivitamins (Thera M Plus) 1 tab DAILY PO Last administered on 11/08/21at 09:38; Start 11/06/21 at 09:00 Ascorbic Acid (Vitamin C) 1,000 mg DAILY PO Last administered on 11/08/21at 09:39; Start 11/06/21 at 09:00 Iron Sucrose 400 mg/Sodium Chloride 270 ml @ 90 mls/hr 1X ONCE IV Last administered on 11/06/21at 15:41; Start 11/06/21 at 15:00; Stop 11/06/21 at 17:59; Status DC Pantoprazole Sodium (Protonix) 40 mg DAILYAC PO Last administered on 11/08/21at 09:39; Start 11/07/21 at 07:30 Magnesium Sulfate 50 ml @ 25 mls/hr 1X ONCE IV Last administered on 11/07/21at 12:11; Start 11/07/21 at 09:00; Stop 11/07/21 at 10:59; Status DC Active Scripts Active Reported Advil Dual Action 250Mg-125Mg (Ibuprofen/Acetaminophen) 1 Each Tablet 1 Each PO TID PRN PRN Vitals/I & O Vital Sign - Last 24 Hours 11/07/21 11/07/21 11/07/21 11/07/21 15:00 19:00 20:20 22:45 Temp 98.8 98.4 98.8 98.4 Pulse 78 80 Resp 18 16 B/P (MAP) 111/62 (78) 117/66 (83) Pulse Ox 95 96 96 O2 Delivery Room Air Room Air Room Air Room Air 11/07/21 11/07/21 11/08/21 11/08/21 23:00 23:15 03:00 07:00 Temp 98.7 98.3 97.6 98.7 98.3 97.6 Pulse 69 63 65 Resp 16 16 18 B/P (MAP) 113/68 (83) 104/64 (77) 118/67 (84) Pulse Ox 95 95 97 95 O2 Delivery Room Air Room Air Room Air Room Air 11/08/21 11/08/21 11/08/21 09:39 10:29 11:00 Temp 98.6 98.6 Pulse 74 Resp 18 B/P (MAP) 114/61 (78) Pulse Ox 95 95 97 O2 Delivery Room Air Room Air Room Air Intake and Output 11/07/21 11/07/21 11/08/21 15:00 23:00 07:00 Intake Total 480 ml 290 ml 120 ml Output Total 400 ml 750 ml Balance 80 ml -460 ml 120 ml BLANCA HOWE November 08, 2021 14:06
--- NOTE | 2021-11-08 14:42 | PDOC ---
[employer] PROGRESS NOTE Date of Service DOS: DATE: 11/08/21 TIME: 14:34 Chief Complaint Chief Complaint Uterine prolapse Right-sided pneumonia likely bacterial gram-negative possible aspiration Microcytic anemia due to CLAUDIA adult failure to thrive, CHRISTIANO likely obstructive uropathy Bilateral hydronephrosis Acute on chronic urinary retention severe protein malnutrition reported history of scoliosis Right asymptomatic hepatic cyst greater than 4 cm Gynecology consulted for uterine prolapse and recommended nonsurgical management GI consult for anemia and hepatic cysts We will start IV iron infusion today and consider outpatient iron supplement replacement Trend hemoglobin Appreciate nephrology Recs Urology consultedno surgical intervention at this time. Continue indwelling Stevenson and possible voiding trial before discharge -PT/OT -Nutrition consult -DVT prophylaxis -Rocephin Doxy for presumed pneumonia.and UTI History of Present Illness History of Present Illness 11/07/2021 No acute events overnight. Patient seen examined bedside. Hemoglobin stable 7.7. Patient feels about the same since that time of admission. Urology following and appreciate the recommendations. Plan for voiding trial in the morning. Her creatinine has also improved to 1.6. PT OT has recommended ski lled nursing. I have discussed with the patient and encouraged her for prison facility however, patient wants to go home because she has a disabled son and she needs to take care of him. Apparently, neighbor has contacted APS and a file has been opened and psych social worker had discussion with Danilo Michele, please see social workers note for details. In summary from that conversation, APS had gone to their home and the patient was alert and oriented but APS cannot force change. I believe there is some internal conflict for the patient as the patient does want to go home to be with her son but she also knows that if she does go home she may not be able to take care of her self. Patient will verbalize that she is fine and she is able to take care of her son and herself, however reports from the neighbor and APS is that the condition of the home are not livable. I.e., there is no running water and patient was found at home and her urine and feces. Anticipate for discharge tomorrow after voiding trial and IV iron infusion today. Will trend hemoglobin and continue antibiotics at time of discharge. Patient's chart, labs, images were reviewed and discussed with RN 11/06/2021 No acute events overnight. Patient seen examined bedside. Patient confused a bout what she needs to do for her medical management. She does not follow closely with any primary doctor. Urology evaluated and recommended continuing indwelling Stevenson catheter and no surgical management at this time. Patient may need voiding trial before discharge as she does not have good follow with any primary physician. Hemoglobin today is at 7.6 after 2 units PRBC. No obvious sources of bleeding. Anemia likely related to iron deficiency anemia. Patient will need SNF placement. Patient's chart, labs, images were reviewed and discussed with RN 11/05 Evaluated examined at bedside. Patient reported she was feeling "bad." Said she felt very "crunched up in her bed." Offered to help her boost up she declined. Declining many interventions. Creatinine a little bit improved renal sent from yesterday showing left hydronephrosis unable to visualize right kidney we will consult interventional radiology to see if neph tubes are an option. Nephrology recommendations reviewed. Continue antibiotics for pneumonia and UTI. 11/06/2021 No acute events overnight. Patient seen examined bedside. AF and VSS still feels about the same. Hemoglobin stable at 7.5. Creatinine improving to 1.6 from 2.0. Stevenson catheter still in place. Magnesium 1.7 replace with IV magnesium sulfate. Patient's chart, labs, images were reviewed and discussed with RN Vitals/I&O Vitals/I&O: Vital Signs Date Time Temp Pulse Resp B/P (MAP) Pulse Ox O2 Delivery O2 Flow Rate FiO2 11/08/21 11:00 98.6 74 18 114/61 (78) 97 Room Air 98.6 I & O 11/07/21 11/07/21 11/08/21 15:00 23:00 07:00 Intake Total 480 ml 290 ml 120 ml Output Total 400 ml 750 ml Balance 80 ml -460 ml 120 ml Physical Exam General: Alert, Oriented X3, Cooperative, No acute distress Heart: Regular rate, Normal S1, Normal S2, No murmurs Lungs: Clear Abdomen: Normal bowel sounds, Soft, No tenderness, No hepatosplenomegaly, No masses Extremities: No clubbing, No cyanosis, No edema, Normal pulses, No tenderness/swelling Skin: No rashes, No breakdown Labs Labs: Laboratory Tests Test 11/08/21 06:40 White Blood Count 7.2 x10^3/uL (4.0-11.0) Red Blood Count 3.37 x10^6/uL (3.50-5.40) Hemoglobin 7.7 g/dL (12.0-15.5) Hematocrit 24.7 % (36.0-47.0) Mean Corpuscular Volume 73 fL (79-100) Mean Corpuscular Hemoglobin 23 pg (25-35) Mean Corpuscular Hemoglobin Concent 31 g/dL (31-37) Red Cell Distribution Width 28.4 % (11.5-14.5) Platelet Count 294 x10^3/uL (140-400) Neutrophils (%) (Auto) 69 % (31-73) Lymphocytes (%) (Auto) 18 % (24-48) Monocytes (%) (Auto) 9 % (0-9) Eosinophils (%) (Auto) 3 % (0-3) Basophils (%) (Auto) 1 % (0-3) Neutrophils # (Auto) 5.0 x10^3/uL (1.8-7.7) Lymphocytes # (Auto) 1.3 x10^3/uL (1.0-4.8) Monocytes # (Auto) 0.6 x10^3/uL (0.0-1.1) Eosinophils # (Auto) 0.2 x10^3/uL (0.0-0.7) Basophils # (Auto) 0.1 x10^3/uL (0.0-0.2) Sodium Level 142 mmol/L (136-145) Potassium Level 4.8 mmol/L (3.5-5.1) Chloride Level 109 mmol/L (98-107) Carbon Dioxide Level 23 mmol/L (21-32) Anion Gap 10 (6-14) Blood Urea Nitrogen 34 mg/dL (7-20) Creatinine 1.6 mg/dL (0.6-1.0) Estimated GFR (Cockcroft-Gault) 31.8 Glucose Level 76 mg/dL (70-99) Calcium Level 8.2 mg/dL (8.5-10.1) Phosphorus Level 2.9 mg/dL (2.6-4.7) Magnesium Level 2.1 mg/dL (1.8-2.4) Albumin 2.9 g/dL (3.4-5.0) Assessment and Plan Assessmemt and Plan Problems Medical Problems: (1) Acute renal injury Status: Acute (2) Anemia Status: Acute (3) Failure to thrive in adult Status: Acute (4) Weakness generalized Status: Acute Comment Review of Relevant I have reviewed the following items jyoti (where applicable) has been applied. Justifications for Admission Other Justification BEE OLIVEROS MD November 08, 2021 14:42
[2021-11-08 15:00] VITALS: BP 116/62
[2021-11-08] MEDS ORDERED: IRON SUCROSE COMPLEX 400 MG in IV NORMAL SALINE 250ML 250 ML IV ONE (15:30)
[2021-11-08 19:00] VITALS: BP 105/63
[2021-11-08] MEDS: CEFDINIR 300 MG CAPSULE PO SCH (20:52)
[2021-11-08 23:00] VITALS: BP 109/64
[2021-11-09 03:00] VITALS: BP 117/61
[2021-11-09 07:00] VITALS: BP 117/64
[2021-11-09 07:50] LABS: ALBUMIN 2.6 g/dL (3.4-5.0); CALCIUM 8.4 mg/dL (8.5-10.1); CREATININE 1.5 mg/dL (0.6-1.0); GFR 34.2; POTASSIUM 5.2 mmol/L (3.5-5.1)
[2021-11-09] MEDS: MULTIVITAMIN with MINERAL TABLET. PO SCH (08:39)
[2021-11-09] MEDS: ASCORBIC ACID 1,000 MG TABLET PO SCH (08:39)
[2021-11-09] MEDS: DOXYCYCLINE HYCLATE 100 MG TABLET PO SCH ×2 (08:40→21:25)
[2021-11-09] MEDS: SENNOSIDES/DOCUSATE 8.6/50MG TABLET. PO SCH ×2 (08:40→21:25)
[2021-11-09] MEDS: PANTOPRAZOLE 40 MG TABLET.DR. PO SCH (08:40)
[2021-11-09] MEDS: LACTOBACILLUS RHAMNOSUS GG 1 CAPSULE. PO SCH ×2 (08:40→21:25)
--- NOTE | 2021-11-09 09:54 | PDOC ---
DATE OF SERVICE DATE: 11/09/21 TIME: 09:53 SUBJECTIVE ROS Stable denies SOB, No N/V OBJECTIVE Vital Signs Vital Signs Date Time Temp Pulse Resp B/P (MAP) Pulse Ox O2 Delivery O2 Flow Rate FiO2 11/09/21 07:00 98.3 66 20 117/64 (81) 97 Room Air 98.3 I & 0 Intake and Output 11/09/21 07:00 Intake Total 480 ml Output Total 1650 ml Balance -1170 ml Intake Oral 480 ml Output Urine Total 1650 ml PHYSICAL EXAM Physical Exam General Appearance: no Distress HEEN OM moist, anicteric, On RA Neck: Supple CVS: S1 S2 Resp: CTA, no Acc. Muscle use GI: BS +ve NO Bruit Non Tender Non Distended : no CVA tenderness; no Suprapubic Tenderness, Ga + Derm No Rash Neuro- Moving ileana xtrem, Grossly Normal Psych Cooperative DIAGNOSIS/ASSESSMENT Assessment & Plan Acute kidney injury. severe bilateral hydronephrosis on CT Creat Trended down, stable . UA Cx no growth Supportive care , avoid Nephrotoxins , Voiding trial prior to dc when Ga dced Hydronephrosis: Urology following , No indication for surgical intervention at this point.Recommend to continue ga for next 3-4 days then attempt voiding trial AbnormaL CT abdomen pelvis - severe bilateral hydronephrosis. No obstructing process is seen but sensitivity is limited. Hypotension POA : stable Pleural effusion - Moderate right and small left pleural effusions. Severe anasarca and mild abdominal and pelvic ascites. Distal colon diverticulosis. Severe hypoalbuminemia - contributing to anasarca reported on CT . Pr/Cr ordered Severe anemia at presentation: Consider hematology and/or GI evaluation Recd Blood transfusion on 11/05 . No Labs today . Severe Fe Deficiency COMMENT/RELEVANT DATA Meds Current Medications Medications (Trade) Dose Ordered Sig/Kaleigh Start Time Stop Time Status Last Admin Dose Admin Acetaminophen (Tylenol) 650 mg PRN Q6HRS PRN 11/04/21 10:45 Albumin Human 100 ml @ 100 mls/hr TID 11/05/21 14:00 11/07/21 09:59 DC 11/07/21 09:09 100 MLS/HR Ascorbic Acid (Vitamin C) 1,000 mg DAILY 11/06/21 09:00 11/09/21 08:39 1,000 MG Calcium Carbonate/ Glycine (Tums) 500 mg PRN Q3HRS PRN 11/04/21 10:45 11/07/21 14:58 500 MG Cefdinir (Omnicef) 300 mg QHS 11/08/21 21:00 11/08/21 20:52 300 MG Ceftriaxone Sodium (Rocephin) 1 gm Q24H 11/04/21 11:00 11/08/21 17:00 DC 11/08/21 12:14 1 GM Doxycycline Hyclate (Vibra-Tab) 100 mg BID 11/04/21 11:00 11/09/21 08:40 100 MG Info (Non-Icu Electrolyte Protocol) 1 ea PRN DAILY PRN 11/04/21 10:45 Iron Sucrose 400 mg/Sodium Chloride 270 ml @ 90 mls/hr 1X ONCE 11/08/21 15:30 11/08/21 18:29 DC 11/08/21 16:20 90 MLS/HR Lactobacillus Rhamnosus (Culturelle) 1 cap BID 11/04/21 21:00 11/09/21 08:40 1 CAP Magnesium Sulfate 50 ml @ 25 mls/hr 1X ONCE 11/07/21 09:00 11/07/21 10:59 DC 11/07/21 12:11 25 MLS/HR Multivitamins (Thera M Plus) 1 tab DAILY 11/06/21 09:00 11/09/21 08:39 1 TAB Ondansetron HCl (Zofran) 4 mg PRN Q6HRS PRN 11/04/21 10:45 11/08/21 03:01 4 MG Oxycodone/ Acetaminophen (Percocet 5/325) 2 tab PRN Q4HRS PRN 11/04/21 10:45 11/08/21 20:52 2 TAB Pantoprazole Sodium (Protonix) 40 mg DAILYAC 11/07/21 07:30 11/09/21 08:40 40 MG Senna/Docusate Sodium (Senna Plus) 1 tab BID 11/04/21 11:00 11/09/21 08:40 1 TAB Sodium Chloride 1,000 ml @ 75 mls/hr [id number] 11/03/21 22:00 11/04/21 21:59 DC 11/04/21 13:12 75 MLS/HR Lab Laboratory Tests Test 11/09/21 07:10 Sodium Level 140 mmol/L (136-145) Potassium Level 5.2 mmol/L (3.5-5.1) Chloride Level 109 mmol/L (98-107) Carbon Dioxide Level 22 mmol/L (21-32) Anion Gap 9 (6-14) Blood Urea Nitrogen 41 mg/dL (7-20) Creatinine 1.5 mg/dL (0.6-1.0) Estimated GFR (Cockcroft-Gault) 34.2 Glucose Level 80 mg/dL (70-99) Calcium Level 8.4 mg/dL (8.5-10.1) Phosphorus Level 3.0 mg/dL (2.6-4.7) Magnesium Level 2.0 mg/dL (1.8-2.4) Albumin 2.6 g/dL (3.4-5.0) Results All relevant outside records, renal labs, imaging studies, telemetry/EKG's were reviewed. Justicifation of Admission Dx: Justifications for Admission: Justification of Admission Dx: N/A ELIANE STRINGER MD November 09, 2021 09:54
[2021-11-09] MEDS: oxyCODONE/APAP 5/325 1 TAB TABLET PO PRN ×2 (10:15→21:31)
--- NOTE | 2021-11-09 10:22 | PDOC ---
Date of Service: DATE: 11/09/21 TIME: 10:20 Subjective: Subjective: No GI complaints. Says she might go to rehab. Hasn't stooled but feels like she might today, doesn't want any medications for this. Objective: Vital Signs: Vital Signs Date Time Temp Pulse Resp B/P (MAP) Pulse Ox O2 Delivery O2 Flow Rate FiO2 11/09/21 10:15 18 93 Room Air 11/09/21 07:00 98.3 66 117/64 (81) 98.3 Labs: Laboratory Tests Test 11/09/21 07:10 Sodium Level 140 mmol/L Potassium Level 5.2 mmol/L Chloride Level 109 mmol/L Carbon Dioxide Level 22 mmol/L Anion Gap 9 Blood Urea Nitrogen 41 mg/dL Creatinine 1.5 mg/dL Estimated GFR (Cockcroft-Gault) 34.2 Glucose Level 80 mg/dL Calcium Level 8.4 mg/dL Phosphorus Level 3.0 mg/dL Magnesium Level 2.0 mg/dL Albumin 2.6 g/dL PE: GEN: NAD LUNGS: CTAB HEART: RRR ABD: S/ND/NT NEURO/PSYCH: A & O 3, pretty flat A/P: CLAUDIA, pelvic organ prolapse -- Continue iron and PPI, plan for outpt scopes. Justicifation of Admission Dx: Justifications for Admission: Justification of Admission Dx: N/A WILLIAM DUARTE November 09, 2021 10:22
[2021-11-09 11:00] VITALS: BP 107/60
--- NOTE | 2021-11-09 12:04 | PDOC ---
PROGRESS NOTE DATE OF SERVICE: DATE: 11/09/21 TIME: 11:59 CHIEF COMPLAINT: Patient refused to have Stevenson catheter removed this morning by nursing. She is afraid of having incontinence as she has gas in the room SUBJECTIVE: HPI: Duration: [] Quality: [] Severity: [] Site/Location: [] Problems: Problems Medical Problems: (1) Acute renal injury Status: Acute (2) Anemia Status: Acute (3) Failure to thrive in adult Status: Acute (4) Weakness generalized Status: Acute OBJECTIVE: Vital Signs: Vital Signs Date Time Temp Pulse Resp B/P (MAP) Pulse Ox O2 Delivery O2 Flow Rate FiO2 11/09/21 10:15 18 93 Room Air 11/09/21 07:00 98.3 66 20 117/64 (81) 97 Room Air 98.3 11/09/21 03:00 98.3 65 16 117/61 (79) 95 Room Air 98.3 11/08/21 23:00 98.6 70 18 109/64 (79) 96 Room Air 98.6 11/08/21 21:22 96 Room Air 11/08/21 20:52 96 Room Air 11/08/21 20:05 Room Air 11/08/21 19:00 99.1 83 20 105/63 (77) 96 Room Air 99.1 11/08/21 15:00 98.0 76 18 116/62 (80) 96 Room Air 98.0 I & O Intake and Output 11/09/21 07:00 Intake Total 480 ml Output Total 1650 ml Balance -1170 ml Intake Oral 480 ml Output Urine Total 1650 ml PHYSICAL EXAM: Physical Exam: GENERAL: awake, alert, oriented, poorly kempt SKIN: warm, dry RESPIRATORY: Aerating well, symmetrical expansion GI: Soft, nontender, no guarding, no rebound : Normal anatomy, no lesions, no CVA tenderness, Stevenson draining eric-colored urine MUSCULOSKELETAL: Moves all extremities, no edema NEURO: No gross abnormalities PSYCHIATRIC: Normal mood, normal affect, agitated and anxious LABS: Laboratory Tests Test 11/07/21 04:00 11/08/21 06:15 11/08/21 06:40 11/09/21 07:10 White Blood Count 6.6 x10^3/uL (4.0-11.0) 7.2 x10^3/uL (4.0-11.0) Red Blood Count 3.31 x10^6/uL (3.50-5.40) 3.37 x10^6/uL (3.50-5.40) Hemoglobin 7.5 g/dL (12.0-15.5) 7.7 g/dL (12.0-15.5) Hematocrit 24.1 % (36.0-47.0) 24.7 % (36.0-47.0) Mean Corpuscular Volume 73 fL (79-100) 73 fL (79-100) Mean Corpuscular Hemoglobin 23 pg (25-35) 23 pg (25-35) Mean Corpuscular Hemoglobin Concent 31 g/dL (31-37) 31 g/dL (31-37) Red Cell Distribution Width 27.0 % (11.5-14.5) 28.4 % (11.5-14.5) Platelet Count 324 x10^3/uL (140-400) 294 x10^3/uL (140-400) Neutrophils (%) (Auto) 70 % (31-73) 69 % (31-73) Lymphocytes (%) (Auto) 18 % (24-48) 18 % (24-48) Monocytes (%) (Auto) 8 % (0-9) 9 % (0-9) Eosinophils (%) (Auto) 3 % (0-3) 3 % (0-3) Basophils (%) (Auto) 1 % (0-3) 1 % (0-3) Neutrophils # (Auto) 4.6 x10^3/uL (1.8-7.7) 5.0 x10^3/uL (1.8-7.7) Lymphocytes # (Auto) 1.2 x10^3/uL (1.0-4.8) 1.3 x10^3/uL (1.0-4.8) Monocytes # (Auto) 0.5 x10^3/uL (0.0-1.1) 0.6 x10^3/uL (0.0-1.1) Eosinophils # (Auto) 0.2 x10^3/uL (0.0-0.7) 0.2 x10^3/uL (0.0-0.7) Basophils # (Auto) 0.1 x10^3/uL (0.0-0.2) 0.1 x10^3/uL (0.0-0.2) Sodium Level 141 mmol/L (136-145) 142 mmol/L (136-145) 140 mmol/L (136-145) Potassium Level 4.5 mmol/L (3.5-5.1) 4.8 mmol/L (3.5-5.1) 5.2 mmol/L (3.5-5.1) Chloride Level 111 mmol/L (98-107) 109 mmol/L (98-107) 109 mmol/L (98-107) Carbon Dioxide Level 23 mmol/L (21-32) 23 mmol/L (21-32) 22 mmol/L (21-32) Anion Gap 7 (6-14) 10 (6-14) 9 (6-14) Blood Urea Nitrogen 34 mg/dL (7-20) 34 mg/dL (7-20) 41 mg/dL (7-20) Creatinine 1.6 mg/dL (0.6-1.0) 1.6 mg/dL (0.6-1.0) 1.5 mg/dL (0.6-1.0) Estimated GFR (Cockcroft-Gault) 31.8 31.8 34.2 Glucose Level 86 mg/dL (70-99) 76 mg/dL (70-99) 80 mg/dL (70-99) Calcium Level 7.7 mg/dL (8.5-10.1) 8.2 mg/dL (8.5-10.1) 8.4 mg/dL (8.5-10.1) Phosphorus Level 2.2 mg/dL (2.6-4.7) 2.9 mg/dL (2.6-4.7) 3.0 mg/dL (2.6-4.7) Magnesium Level 1.7 mg/dL (1.8-2.4) 2.1 mg/dL (1.8-2.4) 2.0 mg/dL (1.8-2.4) Albumin 3.0 g/dL (3.4-5.0) 2.9 g/dL (3.4-5.0) 2.6 g/dL (3.4-5.0) Coronavirus (COVID-19)(PCR) Not detected (NOT DETECTD) Microbiology 11/05/21 Urine Culture - Final, Complete 11/03/21 Blood Culture - Final, Complete NO GROWTH AFTER 5 DAYS MEDICATIONS: Current Medications Medications (Trade) Dose Ordered Sig/Kaleigh Start Time Stop Time Status Last Admin Dose Admin Acetaminophen (Tylenol) 650 mg PRN Q6HRS PRN 11/04/21 10:45 Albumin Human 100 ml @ 100 mls/hr TID 11/05/21 14:00 11/07/21 09:59 DC 11/07/21 09:09 100 MLS/HR Ascorbic Acid (Vitamin C) 1,000 mg DAILY 11/06/21 09:00 11/09/21 08:39 1,000 MG Calcium Carbonate/ Glycine (Tums) 500 mg PRN Q3HRS PRN 11/04/21 10:45 11/07/21 14:58 500 MG Cefdinir (Omnicef) 300 mg QHS 11/08/21 21:00 11/08/21 20:52 300 MG Ceftriaxone Sodium (Rocephin) 1 gm Q24H 11/04/21 11:00 11/08/21 17:00 DC 11/08/21 12:14 1 GM Doxycycline Hyclate (Vibra-Tab) 100 mg BID 11/04/21 11:00 11/09/21 08:40 100 MG Info (Non-Icu Electrolyte Protocol) 1 ea PRN DAILY PRN 11/04/21 10:45 Iron Sucrose 400 mg/Sodium Chloride 270 ml @ 90 mls/hr 1X ONCE 11/08/21 15:30 11/08/21 18:29 DC 11/08/21 16:20 90 MLS/HR Lactobacillus Rhamnosus (Culturelle) 1 cap BID 11/04/21 21:00 11/09/21 08:40 1 CAP Magnesium Sulfate 50 ml @ 25 mls/hr 1X ONCE 11/07/21 09:00 11/07/21 10:59 DC 11/07/21 12:11 25 MLS/HR Multivitamins (Thera M Plus) 1 tab DAILY 11/06/21 09:00 11/09/21 08:39 1 TAB Ondansetron HCl (Zofran) 4 mg PRN Q6HRS PRN 11/04/21 10:45 11/08/21 03:01 4 MG Oxycodone/ Acetaminophen (Percocet 5/325) 2 tab PRN Q4HRS PRN 11/04/21 10:45 11/08/21 20:52 2 TAB Pantoprazole Sodium (Protonix) 40 mg DAILYAC 11/07/21 07:30 11/09/21 08:40 40 MG Senna/Docusate Sodium (Senna Plus) 1 tab BID 11/04/21 11:00 11/09/21 08:40 1 TAB Sodium Chloride 1,000 ml @ 75 mls/hr [id number] 11/03/21 22:00 11/04/21 21:59 DC 11/04/21 13:12 75 MLS/HR ASSESSMENT & PLAN -- Urinary retention, bilateral hydronephrosis Stevenson catheter placed on admission. Will try a voiding trial today. Stevenson catheter removal is in the room after long discussion with patient that Stevenson catheter could cause infections and if she is able to void on her own it will lower her risk for UTI. Urine culture showed no growth Creatinine is stable at 1.5 and has trended downward. Nursing to do postvoid residual. It if retaining greater than 300 cc, replace Stevenson and have patient follow-up for a voiding trial in the office in 2-3 weeks or with home health care. Would recommend follow-up renal ultrasound in 1 week. Please call with urology concerns Problem List: Problems Medical Problems: (1) Acute renal injury Status: Acute (2) Anemia Status: Acute (3) Failure to thrive in adult Status: Acute (4) Weakness generalized Status: Acute MAYELIN DUNN November 09, 2021 12:04
--- NOTE | 2021-11-09 14:39 | PDOC ---
[employer] PROGRESS NOTE Date of Service DOS: DATE: 11/09/21 TIME: 14:34 Chief Complaint Chief Complaint Uterine prolapse Right-sided pneumonia likely bacterial gram-negative possible aspiration Microcytic anemia due to CLAUDIA adult failure to thrive, CHRISTIANO likely obstructive uropathy Bilateral hydronephrosis Acute on chronic urinary retention severe protein malnutrition reported history of scoliosis Right asymptomatic hepatic cyst greater than 4 cm Gynecology consulted for uterine prolapse and recommended nonsurgical management GI consult for anemia and hepatic cysts We will start IV iron infusion today and consider outpatient iron supplement replacement Trend hemoglobin Appreciate nephrology Recs Urology consultedno surgical intervention at this time. Continue indwelling Stevenson and possible voiding trial before discharge -PT/OT -Nutrition consult -DVT prophylaxis -Rocephin Doxy for presumed pneumonia.and UTI History of Present Illness History of Present Illness 11/09: Potassium elevated at 5.2 and CR 1.5. Stevenson catheter is out. 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 She still very weak depressed focusing on diet and the menu and is a little difficult to redirect about her unsafe home living situation and discussed the fact that there is offer for her home to be renovated but she and her son will be to move out temporarily she is reaching out to her sister today to help with this so that she has stable housing and she would be amenable to going to skilled rehab but she does not feel like she has the energy to follow through with doing this and is contemplating wanting "to go home and just ." 11/07: No acute events overnight. Patient seen examined bedside. Hemoglobin stable 7.7. Patient feels about the same since that time of admission. Urology following and appreciate the recommendations. Plan for voiding trial in the morning. Her creatinine has also improved to 1.6. PT OT has recommended retirement. I have discussed with the patient and encouraged her for retirement facility however, patient wants to go home because she has a disabled son and she needs to take care of him. Apparently, neighbor has contacted APS and a file has been opened and social security assessor had discussion with Danilo Michele, please see social workers note for details. In summary from that conversation, APS had gone to their home and the patient was alert and oriented but APS cannot force change. I believe there is some internal conflict for the patient as the patient does want to go home to be with her son but she also knows that if she does go home she may not be able to take care of her self. Patient will verbalize that she is fine and she is able to take care of her son and herself, however reports from the neighbor and APS is that the condition of the home are not livable. I.e., there is no running water and patient was found at home and her urine and feces. Anticipate for discharge tomorrow after voiding trial and IV iron infusion today. Will trend hemoglobin and continue antibiotics at time of discharge. Patient's chart, labs, images were reviewed and discussed with RN 11/06: No acute events overnight. Patient seen examined bedside. Patient confused about what she needs to do for her medical management. She does not follow closely with any primary doctor. Urology evaluated and recommended continuing indwelling Stevenson catheter and no surgical management at this time. Patient may need voiding trial before discharge as she does not have good follow with any primary physician. Hemoglobin today is at 7.6 after 2 units PRBC. No obvious sources of bleeding. Anemia likely related to iron deficiency anemia. Patient will need SNF placement. Patient's chart, labs, images were reviewed and discussed with RN 11/05: Evaluated examined at bedside. Patient reported she was feeling "bad." Said she felt very "crunched up in her bed." Offered to help her boost up she declined. Declining many interventions. Creatinine a little bit improved renal sent from yesterday showing left hydronephrosis unable to visualize right kidney we will consult interventional radiology to see if neph tubes are an option. Nephrology recommendations reviewed. Continue antibiotics for pneumonia and UTI. 11/04: No acute events overnight. Patient seen examined bedside. AF and VSS still feels about the same. Hemoglobin stable at 7.5. Creatinine improving to 1.6 from 2.0. Stevenson catheter still in place. Magnesium 1.7 replace with IV m agnesium sulfate. Patient's chart, labs, images were reviewed and discussed with RN Vitals/I&O Vitals/I&O: Vital Signs Date Time Temp Pulse Resp B/P (MAP) Pulse Ox O2 Delivery O2 Flow Rate FiO2 11/09/21 11:00 98.0 80 20 107/60 (76) 96 Room Air 98.0 I & O 5/05/2211/08/21 11/09/21 15:00 23:00 07:00 Intake Total 240 ml 120 ml 120 ml Output Total 500 ml 550 ml 600 ml Balance -260 ml -430 ml -480 ml Physical Exam General: Alert, Oriented X3, Cooperative, No acute distress Heart: Regular rate, Normal S1, Normal S2, No murmurs Lungs: Clear Abdomen: Normal bowel sounds, Soft, No tenderness, No hepatosplenomegaly, No masses Extremities: No clubbing, No cyanosis, No edema, Normal pulses, No tenderness/swelling Skin: No rashes, No breakdown Labs Labs: Laboratory Tests Test 11/09/21 07:10 Sodium Level 140 mmol/L (136-145) Potassium Level 5.2 mmol/L (3.5-5.1) Chloride Level 109 mmol/L (98-107) Carbon Dioxide Level 22 mmol/L (21-32) Anion Gap 9 (6-14) Blood Urea Nitrogen 41 mg/dL (7-20) Creatinine 1.5 mg/dL (0.6-1.0) Estimated GFR (Cockcroft-Gault) 34.2 Glucose Level 80 mg/dL (70-99) Calcium Level 8.4 mg/dL (8.5-10.1) Phosphorus Level 3.0 mg/dL (2.6-4.7) Magnesium Level 2.0 mg/dL (1.8-2.4) Albumin 2.6 g/dL (3.4-5.0) Assessment and Plan Assessmemt and Plan Problems Medical Problems: (1) Acute renal injury Status: Acute (2) Anemia Status: Acute (3) Failure to thrive in adult Status: Acute (4) Weakness generalized Status: Acute Comment Review of Relevant I have reviewed the following items jyoti (where applicable) has been applied. Medications: Current Medications Medications (Trade) Dose Ordered Sig/Kaleigh Route PRN Reason Start Time Stop Time Status Last Admin Dose Admin Iron Sucrose 400 mg/Sodium Chloride 270 ml @ 90 mls/hr 1X ONCE IV 11/08/21 15:30 11/08/21 18:29 DC 11/08/21 16:20 Cefdinir (Omnicef) 300 mg QHS PO 11/08/21 21:00 11/08/21 20:52 Justifications for Admission Other Justification ALMA WALL MD November 09, 2021 14:39
[2021-11-09 15:00] VITALS: BP 113/64
--- NOTE | 2021-11-09 15:11 | NUR ---
SS following up with discharge planning. SS reviewed pt chart and discussed with pt RN. Pt is currently on room air. COVID19 negative. PO antibiotics. PT/OT recommended prison unit. Pt declining prison unit at this time. Dr. Rees met with pt and discussed home situation and living environment. Dr. Rees attempting to encourage pt to consider prison unit. SS will continue to follow for discharge planning.
--- NOTE | 2021-11-09 15:38 | NUR ---
Patient incontinent of urine, bladder scan volume showed 25cc left in bladder. Addendum: 11/09/21 at 1541 by JANNETTE CRISOSTOMO RN RN Amended: Links added.
[2021-11-09 19:00] VITALS: BP 137/76
[2021-11-09] MEDS: CEFDINIR 300 MG CAPSULE PO SCH (21:25)
[2021-11-09] MEDS ORDERED: MAGNESIUM CITRATE 296 ML SOLUTION. PO PRN (22:15)
[2021-11-09] MEDS: POLYETHYLENE GLYCOL 3350 17 GM PACKET. PO SCH (22:53)
[2021-11-09] MEDS: PSYLLIUM HUSK (SUGAR FREE) 1 PKT PACKET PO SCH (22:53)
[2021-11-09 23:00] VITALS: BP 123/78
[2021-11-10 03:00] VITALS: BP 132/76
[2021-11-10] MEDS: CALCIUM CARBONATE 500 MG TAB.CHEW PO PRN ×2 (04:12→10:10)
[2021-11-10] MEDS: oxyCODONE/APAP 5/325 1 TAB TABLET PO PRN ×4 (04:13→21:16)
--- NOTE | 2021-11-10 04:17 | NUR ---
offered mag citrate, refused at this time.
--- NOTE | 2021-11-10 04:19 | NUR ---
Pt claimed early part of the shift that she feels she has to go (BM) and claimed she hasnt voided since the ga was taken out around 1130 am (11/09). Bladder scanned: >451cc. Pt claimed she's very uncomfortable. Placed ga @ 2200, Dr Rees informed. Digitally took out hard stools, quarter sized X 2. Pt requested med to make her go. (BM). See orders.
[2021-11-10 05:58] LABS: ALBUMIN 2.6 g/dL (3.4-5.0); CALCIUM 8.7 mg/dL (8.5-10.1); CREATININE 1.5 mg/dL (0.6-1.0); GFR 34.2; PHOSPHORUS 3.4 mg/dL (2.6-4.7); POTASSIUM 4.8 mmol/L (3.5-5.1)
[2021-11-10 07:00] VITALS: BP 116/67
[2021-11-10] MEDS: SENNOSIDES/DOCUSATE 8.6/50MG TABLET. PO SCH ×2 (08:45→21:15)
[2021-11-10] MEDS: DOXYCYCLINE HYCLATE 100 MG TABLET PO SCH ×2 (08:45→21:15)
[2021-11-10] MEDS: MULTIVITAMIN with MINERAL TABLET. PO SCH (08:45)
[2021-11-10] MEDS: POLYETHYLENE GLYCOL 3350 17 GM PACKET. PO SCH (08:45)
[2021-11-10] MEDS: LACTOBACILLUS RHAMNOSUS GG 1 CAPSULE. PO SCH ×2 (08:45→21:15)
[2021-11-10] MEDS: PANTOPRAZOLE 40 MG TABLET.DR. PO SCH (08:45)
[2021-11-10] MEDS: ASCORBIC ACID 1,000 MG TABLET PO SCH (08:45)
--- NOTE | 2021-11-10 09:19 | PDOC ---
DATE OF SERVICE DATE: 11/10/21 TIME: 09:16 SUBJECTIVE ROS Stable denies SOB, No N/V OBJECTIVE Vital Signs Vital Signs Date Time Temp Pulse Resp B/P (MAP) Pulse Ox O2 Delivery O2 Flow Rate FiO2 11/10/21 07:00 66 19 116/67 (83) 95 Room Air 11/10/21 03:00 98.5 98.5 I & 0 Intake and Output 11/10/21 07:00 Intake Total 840 ml Output Total 2800 ml Balance -1960 ml Intake Oral 840 ml Output Urine Total 2800 ml # Voids 1 PHYSICAL EXAM Physical Exam General Appearance: no Distress HEEN OM moist, anicteric, On RA Neck: Supple CVS: S1 S2 Resp: CTA, no Acc. Muscle use GI: BS +ve NO Bruit Non Tender Non Distended : no CVA tenderness; no Suprapubic Tenderness, Stevenson dced Derm No Rash Neuro- Moving ileana xtrem, Grossly Normal Psych Cooperative DIAGNOSIS/ASSESSMENT Assessment & Plan Acute kidney injury. severe bilateral hydronephrosis on CT Creat Trended down, stable . UA Cx no growth Supportive care , avoid Nephrotoxins ,Stevenson dced . Baseline Creatinine unknown . Follow up with us as OP - Non Urgent/Routine Hydronephrosis: Urology following , No indication for surgical intervention at this point. Stevenson was dced., found to have 400 mls PVR, replaced again last night ; removed this morning . Awaitng repeat Bladder scan Urology following AbnormaL CT abdomen pelvis - severe bilateral hydronephrosis. No obstructing process is seen but sensitivity is limited. Hypotension POA : stable Pleural effusion - Moderate right and small left pleural effusions. Severe anasarca and mild abdominal and pelvic ascites. Distal colon diverticulosis. Severe hypoalbuminemia - contributing to anasarca reported on CT . Pr/Cr ordered Severe anemia at presentation: Consider hematology and/or GI evaluation Recd Blood transfusion on 11/05 . No Labs today . Severe Fe Deficiency COMMENT/RELEVANT DATA Meds Current Medications Medications (Trade) Dose Ordered Sig/Kaleigh Start Time Stop Time Status Last Admin Dose Admin Acetaminophen (Tylenol) 650 mg PRN Q6HRS PRN 11/04/21 10:45 Albumin Human 100 ml @ 100 mls/hr TID 11/05/21 14:00 11/07/21 09:59 DC 11/07/21 09:09 100 MLS/HR Ascorbic Acid (Vitamin C) 1,000 mg DAILY 11/06/21 09:00 11/10/21 08:45 1,000 MG Calcium Carbonate/ Glycine (Tums) 500 mg PRN Q3HRS PRN 11/04/21 10:45 11/10/21 04:12 500 MG Cefdinir (Omnicef) 300 mg QHS 11/08/21 21:00 11/09/21 21:25 300 MG Ceftriaxone Sodium (Rocephin) 1 gm Q24H 11/04/21 11:00 11/08/21 17:00 DC 11/08/21 12:14 1 GM Doxycycline Hyclate (Vibra-Tab) 100 mg BID 11/04/21 11:00 11/10/21 08:45 100 MG Info (Non-Icu Electrolyte Protocol) 1 ea PRN DAILY PRN 11/04/21 10:45 Iron Sucrose 400 mg/Sodium Chloride 270 ml @ 90 mls/hr 1X ONCE 11/08/21 15:30 11/08/21 18:29 DC 11/08/21 16:20 90 MLS/HR Lactobacillus Rhamnosus (Culturelle) 1 cap BID 11/04/21 21:00 11/10/21 08:45 1 CAP Magnesium Citrate (Citroma) 296 ml PRN 1X PRN 11/09/21 22:15 Magnesium Sulfate 50 ml @ 25 mls/hr 1X ONCE 11/07/21 09:00 11/07/21 10:59 DC 11/07/21 12:11 25 MLS/HR Multivitamins (Thera M Plus) 1 tab DAILY 11/06/21 09:00 11/10/21 08:45 1 TAB Ondansetron HCl (Zofran) 4 mg PRN Q6HRS PRN 11/04/21 10:45 11/08/21 03:01 4 MG Oxycodone/ Acetaminophen (Percocet 5/325) 2 tab PRN Q4HRS PRN 11/04/21 10:45 11/09/21 22:11 DC 11/08/21 20:52 2 TAB Pantoprazole Sodium (Protonix) 40 mg DAILYAC 11/07/21 07:30 11/10/21 08:45 40 MG Polyethylene Glycol (miraLAX PACKET) 17 gm DAILY 11/09/21 22:15 11/10/21 08:45 17 GM Psyllium Hydrophilic Mucilloid (Metamucil Fiber Packet) 1 pkt QHS 11/09/21 22:15 11/09/21 22:53 1 PKT Senna/Docusate Sodium (Senna Plus) 1 tab BID 11/04/21 11:00 11/10/21 08:45 1 TAB Sodium Chloride 1,000 ml @ 75 mls/hr [id number] 11/03/21 22:00 11/04/21 21:59 DC 11/04/21 13:12 75 MLS/HR Lab Laboratory Tests Test 11/10/21 05:00 Sodium Level 139 mmol/L (136-145) Potassium Level 4.8 mmol/L (3.5-5.1) Chloride Level 107 mmol/L (98-107) Carbon Dioxide Level 21 mmol/L (21-32) Anion Gap 11 (6-14) Blood Urea Nitrogen 37 mg/dL (7-20) Creatinine 1.5 mg/dL (0.6-1.0) Estimated GFR (Cockcroft-Gault) 34.2 Glucose Level 85 mg/dL (70-99) Calcium Level 8.7 mg/dL (8.5-10.1) Phosphorus Level 3.4 mg/dL (2.6-4.7) Albumin 2.6 g/dL (3.4-5.0) Results All relevant outside records, renal labs, imaging studies, telemetry/EKG's were reviewed. Justicifation of Admission Dx: Justifications for Admission: Justification of Admission Dx: N/A ELIANE STRINGER MD November 10, 2021 09:19
[2021-11-10 11:00] VITALS: BP 122/67
--- NOTE | 2021-11-10 12:27 | NUR ---
Night nurse Anabel replaced ga catheter during shift supervisor because patient's bladder volume was >400cc. Night nurse deflated balloon this AM at 0700 but patient refused to let nurse completely remove catheter. This nurse removed catheter at 1100, explaining to patient the increased risk for infection if catheter left in place. 700cc slightly cloudy, yellow urine emptied from ga. Addendum: 11/10/21 at 1230 by JANNETTE CRISOSTOMO RN RN Amended: Links added.
[2021-11-10] MEDS ORDERED: BISACODYL 10 MG SUPP.RECT. PR PRN (13:00)
--- NOTE | 2021-11-10 13:00 | PDOC ---
Date of Service: DATE: 11/10/21 TIME: 12:58 Subjective: Subjective: Trying to eat lunch, asks for more straws. Doesn't want suppository. Objective: Objective: Reviewed chart and d/w nurse - taking Miralax and Mag Citrate for constipation, assembler 1st shift removed some hard stool. Vital Signs: Vital Signs Date Time Temp Pulse Resp B/P (MAP) Pulse Ox O2 Delivery O2 Flow Rate FiO2 11/10/21 11:00 98.1 86 18 122/67 (85) 96 Room Air 98.1 PE: GEN: NAD, eating lunch LUNGS: CTAB HEART: RRR ABD: S/ND/NT NEURO/PSYCH: A & O 3, flat A/P: CLAUDIA, pelvic organ prolapse Constipation -- Agree w/ constipation treatment - will order PRN supp in case she changes her mind. Continue iron and PPI, plan for outpt scopes. Justicifation of Admission Dx: Justifications for Admission: Justification of Admission Dx: N/A WILLIAM DUARTE November 10, 2021 13:00
--- NOTE | 2021-11-10 13:24 | NUR ---
SS following up with discharge planning. SS reviewed pt chart and discussed with pt RN. Pt is currently on room air. COVID19 negative. PT/OT recommended chcf unit. Pt declining chcf unit. Referrals sent to several home healthcare companies and SS was notified that if returning to same home environment home healthcare would not be able to follow due to safety concerns for there staff. Pt mentioned to physician that she wanted to "go home and ." Physician requested referrals to hospice. Referrals phoned and faxed to [facility], ; fax [phone], [facility], ; fax [phone], and [facility], ; fax [phone]. Physician notified. SS will continue to follow for discharge planning.
--- NOTE | 2021-11-10 13:39 | NUR ---
This nurse offered a bisacodyl suppository to patient since she is complaining of needing to have a bowel movement, last known bowel movement is 11/03/2021, patient received miralax and one bottle of magnesium citrate this AM, patient is refusing suppository, stating, "You guys have filled me up with all this other stuff, let's just wait and see if some of that works first."
--- NOTE | 2021-11-10 13:58 | PDOC ---
[employer] PROGRESS NOTE Date of Service DOS: DATE: 11/10/21 TIME: 13:52 Chief Complaint Chief Complaint Uterine prolapse Right-sided pneumonia likely bacterial gram-negative possible aspiration Microcytic anemia due to CLAUDIA adult failure to thrive, CHRISTIANO likely obstructive uropathy Bilateral hydronephrosis Acute on chronic urinary retention severe protein malnutrition reported history of scoliosis Right asymptomatic hepatic cyst greater than 4 cm Urinary retention Gynecology consulted for uterine prolapse and recommended nonsurgical management GI consult for anemia and hepatic cysts We will start IV iron infusion today and consider outpatient iron supplement replacement Trend hemoglobin Appreciate nephrology Recs Urology consultedno surgical intervention at this time. Continue indwelling Stevenson and possible voiding trial before discharge -PT/OT -Nutrition consult -DVT prophylaxis -Rocephin Doxy for presumed pneumonia.and UTI History of Present Illness History of Present Illness 11/10/2021 No acute events overnight. Patient seen examined bedside. Creatinine 1.5 today. Potassium of 4.8. No bowel movement reported since November 03, 2021. Aggressive bowel regimen initiated. Patient currently refusing suppository. Stevenson catheter placed for urinary retention. Based off discussion with Dr. Campos yesterday with the patient patient just wants to go home and . Discussion with social work states that APS and home health will likely unable to visit the patient because of safety issues in the home. It seems as if the pictures are drawn by several observers which includes the neighbor, APS, social work seems to paint a picture of an unsafe place for discharge. Because of this patient has stated she does not want to do much for her ailments. I will get hospice evaluation to provide all options for the patient before discharging the patient to an environment that is unethical and inhumane from my standpoint. If the patient wishes for her quality life for what ever living condition she wishes then we will have to respect that, but I do not want to proceed with letting her have that autonomy unless I have a some type of palliative care evaluation. 11/09: Potassium elevated at 5.2 and CR 1.5. Stevenson catheter is out. 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 She still very weak depressed focusing on diet and the menu and is a little difficult to redirect about her unsafe home living situation and discussed the fact that there is offer for her home to be renovated but she and her son will be to move out temporarily she is reaching out to her sister today to help with this so that she has stable housing and she would be amenable to going to skilled rehab but she does not feel like she has the energy to follow through with doing this and is contemplating wanting "to go home and just ." 11/07: No acute events overnight. Patient seen examined bedside. Hemoglobin stable 7.7. Patient feels about the same since that time of admission. Urology following and appreciate the recommendations. Plan for voiding trial in the morning. Her creatinine has also improved to 1.6. PT OT has recommended longterm. I have discussed with the patient and encouraged her for longterm facility however, patient wants to go home because she has a disabled son and she needs to take care of him. Apparently, neighbor has contacted APS and a file has been opened and social media designer had discussion with Danilo Michele, please see social workers note for details. In summary from that conversation, APS had gone to their home and the patient was alert and oriented but APS cannot force change. I believe there is some internal conflict for the patient as the patient does want to go home to be with her son but she also knows that if she does go home she may not be able to take care of her self. Patient will verbalize that she is fine and she is able to take care of her son and herself, however reports from the neighbor and APS is that the condition of the home are not livable. I.e., there is no running water and patient was found at home and her urine and feces. Anticipate for discharge tomorrow after voiding trial and IV iron infusion today. Will trend hemoglobin and continue antibiotics at time of discharge. Patient's chart, labs, images were reviewed and discussed with RN 11/06: No acute events overnight. Patient seen examined bedside. Patient confused about what she needs to do for her medical management. She does not follow closely with any primary doctor. Urology evaluated and recommended continuing indwelling Stevenson catheter and no surgical management at this time. Patient may need voiding trial before discharge as she does not have good follow with any primary physician. Hemoglobin today is at 7.6 after 2 units PRBC. No obvious sources of bleeding. Anemia likely related to iron deficiency anemia. Patient will need SNF placement. Patient's chart, labs, images were reviewed and discussed with RN 11/05: Evaluated examined at bedside. Patient reported she was feeling "bad." Said she felt very "crunched up in her bed." Offered to help her boost up she declined. Declining many interventions. Creatinine a little bit improved renal sent from yesterday showing left hydronephrosis unable to visualize right kidney we will consult interventional radiology to see if neph tubes are an option. Nephrology recommendations reviewed. Continue antibiotics for pneumonia and UTI. 11/04: No acute events overnight. Patient seen examined bedside. AF and VSS still feels about the same. Hemoglobin stable at 7.5. Creatinine improving to 1.6 from 2.0. Stevenson catheter still in place. Magnesium 1.7 replace with IV magnesium sulfate. Patient's chart, labs, images were reviewed and discussed with RN Vitals/I&O Vitals/I&O: Vital Signs Date Time Temp Pulse Resp B/P (MAP) Pulse Ox O2 Delivery O2 Flow Rate FiO2 11/10/21 11:00 98.1 86 18 122/67 (85) 96 Room Air 98.1 I & O 11/09/21 11/09/21 11/10/21 15:00 23:00 07:00 Intake Total 600 ml 240 ml Output Total 1000 ml 0 ml 1800 ml Balance -400 ml 240 ml -1800 ml Physical Exam General: Alert, Oriented X3, Cooperative, No acute distress Heart: Regular rate, Normal S1, Normal S2, No murmurs Lungs: Clear Abdomen: Normal bowel sounds, Soft, No tenderness, No hepatosplenomegaly, No masses Extremities: No clubbing, No cyanosis, No edema, Normal pulses, No tenderness/swelling Skin: No rashes, No breakdown Labs Labs: Laboratory Tests Test 11/10/21 05:00 Sodium Level 139 mmol/L (136-145) Potassium Level 4.8 mmol/L (3.5-5.1) Chloride Level 107 mmol/L (98-107) Carbon Dioxide Level 21 mmol/L (21-32) Anion Gap 11 (6-14) Blood Urea Nitrogen 37 mg/dL (7-20) Creatinine 1.5 mg/dL (0.6-1.0) Estimated GFR (Cockcroft-Gault) 34.2 Glucose Level 85 mg/dL (70-99) Calcium Level 8.7 mg/dL (8.5-10.1) Phosphorus Level 3.4 mg/dL (2.6-4.7) Albumin 2.6 g/dL (3.4-5.0) Assessment and Plan Assessmemt and Plan Problems Medical Problems: (1) Acute renal injury Status: Acute (2) Anemia Status: Acute (3) Failure to thrive in adult Status: Acute (4) Weakness generalized Status: Acute Comment Review of Relevant I have reviewed the following items jyoti (where applicable) has been applied. Medications: Current Medications Medications (Trade) Dose Ordered Sig/Kaleigh Route PRN Reason Start Time Stop Time Status Last Admin Dose Admin Polyethylene Glycol (miraLAX PACKET) 17 gm DAILY PO 11/09/21 22:15 11/10/21 08:45 Magnesium Citrate (Citroma) 296 ml PRN 1X PRN PO CONSTIPATION 11/09/21 22:15 11/10/21 10:02 Psyllium Hydrophilic Mucilloid (Metamucil Fiber Packet) 1 pkt QHS PO 11/09/21 22:15 11/09/21 22:53 Justifications for Admission Other Justification BEE OLIVEROS MD November 10, 2021 13:58
--- NOTE | 2021-11-10 14:23 | PDOC ---
PROGRESS NOTE DATE OF SERVICE: DATE: 11/10/21 TIME: 14:17 CHIEF COMPLAINT: Retention SUBJECTIVE: HPI: Patient resting in bed. States her catheter was removed this morning. States she does not know her discharge plan. Nursing stating that SW is working on safe dc plan for patient. Problems: Problems Medical Problems: (1) Acute renal injury Status: Acute (2) Anemia Status: Acute (3) Failure to thrive in adult Status: Acute (4) Weakness generalized Status: Acute OBJECTIVE: Vital Signs: Vital Signs Date Time Temp Pulse Resp B/P (MAP) Pulse Ox O2 Delivery O2 Flow Rate FiO2 11/10/21 11:00 98.1 86 18 122/67 (85) 96 Room Air 98.1 11/10/21 09:55 20 95 Room Air 11/10/21 09:25 18 95 Room Air 11/10/21 07:00 66 19 116/67 (83) 95 Room Air 11/10/21 04:43 18 96 Room Air 11/10/21 04:13 18 96 Room Air 11/10/21 03:00 98.5 74 16 132/76 (94) 96 Room Air 98.5 11/09/21 23:00 98.6 69 20 123/78 (93) 96 Room Air 98.6 11/09/21 22:01 18 96 Room Air 11/09/21 21:31 18 97 Room Air 11/09/21 20:00 Room Air 11/09/21 19:00 98.4 83 18 137/76 (96) 97 Room Air 98.4 11/09/21 15:00 98.0 68 18 113/64 (80) 95 Room Air 98.0 I & O Intake and Output 11/10/21 07:00 Intake Total 840 ml Output Total 2800 ml Balance -1960 ml Intake Oral 840 ml Output Urine Total 2800 ml # Voids 1 PHYSICAL EXAM: Physical Exam: General: Pleasant, no acute distress, well groomed Eyes: conjunctiva anicteric, eyes full range of motion ENT: moist oral mucosa, normal dentition Neck: Trachea midline, no masses Respiratory: unlabored breathing, not using accessory muscles, no crackles or wheezes Cardiovascular: Regular rate and rhythm, no peripheral edema Abdomen: nontender, nondistended, no hepatosplenomegaly, no masses Skin: no rashes or skin lesions on visualized skin Psych: normal mood, affect. Alert and oriented x 3. LABS: Laboratory Tests Test 11/08/21 06:15 11/08/21 06:40 11/09/21 07:10 11/10/21 05:00 Coronavirus (COVID-19)(PCR) Not detected (NOT DETECTD) White Blood Count 7.2 x10^3/uL (4.0-11.0) Red Blood Count 3.37 x10^6/uL (3.50-5.40) Hemoglobin 7.7 g/dL (12.0-15.5) Hematocrit 24.7 % (36.0-47.0) Mean Corpuscular Volume 73 fL (79-100) Mean Corpuscular Hemoglobin 23 pg (25-35) Mean Corpuscular Hemoglobin Concent 31 g/dL (31-37) Red Cell Distribution Width 28.4 % (11.5-14.5) Platelet Count 294 x10^3/uL (140-400) Neutrophils (%) (Auto) 69 % (31-73) Lymphocytes (%) (Auto) 18 % (24-48) Monocytes (%) (Auto) 9 % (0-9) Eosinophils (%) (Auto) 3 % (0-3) Basophils (%) (Auto) 1 % (0-3) Neutrophils # (Auto) 5.0 x10^3/uL (1.8-7.7) Lymphocytes # (Auto) 1.3 x10^3/uL (1.0-4.8) Monocytes # (Auto) 0.6 x10^3/uL (0.0-1.1) Eosinophils # (Auto) 0.2 x10^3/uL (0.0-0.7) Basophils # (Auto) 0.1 x10^3/uL (0.0-0.2) Sodium Level 142 mmol/L (136-145) 140 mmol/L (136-145) 139 mmol/L (136-145) Potassium Level 4.8 mmol/L (3.5-5.1) 5.2 mmol/L (3.5-5.1) 4.8 mmol/L (3.5-5.1) Chloride Level 109 mmol/L (98-107) 109 mmol/L (98-107) 107 mmol/L (98-107) Carbon Dioxide Level 23 mmol/L (21-32) 22 mmol/L (21-32) 21 mmol/L (21-32) Anion Gap 10 (6-14) 9 (6-14) 11 (6-14) Blood Urea Nitrogen 34 mg/dL (7-20) 41 mg/dL (7-20) 37 mg/dL (7-20) Creatinine 1.6 mg/dL (0.6-1.0) 1.5 mg/dL (0.6-1.0) 1.5 mg/dL (0.6-1.0) Estimated GFR (Cockcroft-Gault) 31.8 34.2 34.2 Glucose Level 76 mg/dL (70-99) 80 mg/dL (70-99) 85 mg/dL (70-99) Calcium Level 8.2 mg/dL (8.5-10.1) 8.4 mg/dL (8.5-10.1) 8.7 mg/dL (8.5-10.1) Phosphorus Level 2.9 mg/dL (2.6-4.7) 3.0 mg/dL (2.6-4.7) 3.4 mg/dL (2.6-4.7) Magnesium Level 2.1 mg/dL (1.8-2.4) 2.0 mg/dL (1.8-2.4) Albumin 2.9 g/dL (3.4-5.0) 2.6 g/dL (3.4-5.0) 2.6 g/dL (3.4-5.0) Microbiology 11/05/21 Urine Culture - Final, Complete 11/03/21 Blood Culture - Final, Complete NO GROWTH AFTER 5 DAYS MEDICATIONS: Current Medications Medications (Trade) Dose Ordered Sig/Kaleigh Start Time Stop Time Status Last Admin Dose Admin Acetaminophen (Tylenol) 650 mg PRN Q6HRS PRN 11/04/21 10:45 Albumin Human 100 ml @ 100 mls/hr TID 11/05/21 14:00 11/07/21 09:59 DC 11/07/21 09:09 100 MLS/HR Ascorbic Acid (Vitamin C) 1,000 mg DAILY 11/06/21 09:00 11/10/21 08:45 1,000 MG Bisacodyl (Dulcolax Supp) 10 mg PRN DAILY PRN 11/10/21 13:00 Calcium Carbonate/ Glycine (Tums) 500 mg PRN Q3HRS PRN 11/04/21 10:45 11/10/21 10:10 500 MG Cefdinir (Omnicef) 300 mg QHS 11/08/21 21:00 11/09/21 21:25 300 MG Ceftriaxone Sodium (Rocephin) 1 gm Q24H 11/04/21 11:00 11/08/21 17:00 DC 11/08/21 12:14 1 GM Doxycycline Hyclate (Vibra-Tab) 100 mg BID 11/04/21 11:00 11/10/21 08:45 100 MG Info (Non-Icu Electrolyte Protocol) 1 ea PRN DAILY PRN 11/04/21 10:45 Iron Sucrose 400 mg/Sodium Chloride 270 ml @ 90 mls/hr 1X ONCE 11/08/21 15:30 11/08/21 18:29 DC 11/08/21 16:20 90 MLS/HR Lactobacillus Rhamnosus (Culturelle) 1 cap BID 11/04/21 21:00 11/10/21 08:45 1 CAP Magnesium Citrate (Citroma) 296 ml PRN 1X PRN 11/09/21 22:15 11/10/21 10:02 296 ML Magnesium Sulfate 50 ml @ 25 mls/hr 1X ONCE 11/07/21 09:00 11/07/21 10:59 DC 11/07/21 12:11 25 MLS/HR Multivitamins (Thera M Plus) 1 tab DAILY 11/06/21 09:00 11/10/21 08:45 1 TAB Ondansetron HCl (Zofran) 4 mg PRN Q6HRS PRN 11/04/21 10:45 11/08/21 03:01 4 MG Oxycodone/ Acetaminophen (Percocet 5/325) 2 tab PRN Q4HRS PRN 11/04/21 10:45 11/09/21 22:11 DC 11/08/21 20:52 2 TAB Pantoprazole Sodium (Protonix) 40 mg DAILYAC 11/07/21 07:30 11/10/21 08:45 40 MG Polyethylene Glycol (miraLAX PACKET) 17 gm DAILY 11/09/21 22:15 11/10/21 08:45 17 GM Psyllium Hydrophilic Mucilloid (Metamucil Fiber Packet) 1 pkt QHS 11/09/21 22:15 11/09/21 22:53 1 PKT Senna/Docusate Sodium (Senna Plus) 1 tab BID 11/04/21 11:00 11/10/21 08:45 1 TAB Sodium Chloride 1,000 ml @ 75 mls/hr [id number] 11/03/21 22:00 11/04/21 21:59 DC 11/04/21 13:12 75 MLS/HR ASSESSMENT & PLAN -- Urinary retention, bilateral hydronephrosis Stevenson catheter placed on admission. Voiding trial attempted yesterday. Per nursing, was able to urinate with minimal PVR, but PVR overnight was >400 so catheter was placed. Again removed by nursing this AM. Per patient, she has been extremely constipated. Recommend aggressive bowel regimen as this contributes to her retention most likely. Urine culture showed no growth Creatinine is stable at 1.5 and has trended downward. Nursing to do postvoid residual. It if retaining greater than 400 cc, replace Stevenson and have patient follow-up for a voiding trial in the office in 2-3 weeks or with home health care. Would recommend follow-up renal ultrasound in 1 week. Please call with urology concerns Problem List: Problems Medical Problems: (1) Acute renal injury Status: Acute (2) Anemia Status: Acute (3) Failure to thrive in adult Status: Acute (4) Weakness generalized Status: Acute WALTER THOMASON APRN November 10, 2021 14:23
[2021-11-10 15:00] VITALS: BP 114/62
--- NOTE | 2021-11-10 18:02 | NUR ---
Stevenson catheter removed at 1100, bladder volume scan done at 1730, showing 25cc of urine in bladder. Patient encouraged to drink fluids. Addendum: 11/10/21 at 1803 by JANNETTE CRISOSTOMO RN RN Amended: Links added.
[2021-11-10 19:00] VITALS: BP 104/54
--- NOTE | 2021-11-10 20:35 | NUR ---
Pt had been incontinent, bladder scanned: 6 cc.
[2021-11-10] MEDS: PSYLLIUM HUSK (SUGAR FREE) 1 PKT PACKET PO SCH (21:00)
[2021-11-10] MEDS: CEFDINIR 300 MG CAPSULE PO SCH (21:15)
[2021-11-10 23:16] VITALS: BP 102/55
[2021-11-11 03:18] VITALS: BP 105/57
[2021-11-11] MEDS: PANTOPRAZOLE 40 MG TABLET.DR. PO SCH (05:49)
[2021-11-11] MEDS: oxyCODONE/APAP 5/325 1 TAB TABLET PO PRN ×4 (05:50→21:14)
[2021-11-11 06:01] LABS: ALBUMIN 2.4 g/dL (3.4-5.0); CALCIUM 8.5 mg/dL (8.5-10.1); CREATININE 1.5 mg/dL (0.6-1.0); GFR 34.2; PHOSPHORUS 2.9 mg/dL (2.6-4.7); POTASSIUM 5.6 mmol/L (3.5-5.1)
[2021-11-11 07:00] VITALS: BP 115/59
[2021-11-11] MEDS: SENNOSIDES/DOCUSATE 8.6/50MG TABLET. PO SCH ×2 (08:55→20:58)
[2021-11-11] MEDS: ASCORBIC ACID 1,000 MG TABLET PO SCH (08:55)
[2021-11-11] MEDS: MULTIVITAMIN with MINERAL TABLET. PO SCH (08:55)
[2021-11-11] MEDS: LACTOBACILLUS RHAMNOSUS GG 1 CAPSULE. PO SCH ×2 (08:55→20:42)
[2021-11-11] MEDS: DOXYCYCLINE HYCLATE 100 MG TABLET PO SCH ×2 (08:56→20:42)
[2021-11-11] MEDS: POLYETHYLENE GLYCOL 3350 17 GM PACKET. PO SCH (08:57)
--- NOTE | 2021-11-11 10:30 | NUR ---
ga D'cd yesterday, pt incontient with brief on, bladder scan done, 100cc scanned, Dr. Muñoz informed
--- NOTE | 2021-11-11 10:48 | PDOC ---
Renal-Progress Notes Subjective Notes Notes NO NEW COMPLAINTS History of Present Illness Hx of present illness PLACEMENT PENDING. HAS INCONTINENCE Vitals Vitals Vital Signs Date Time Temp Pulse Resp B/P (MAP) Pulse Ox O2 Delivery O2 Flow Rate FiO2 11/11/21 08:00 Room Air 11/11/21 07:00 97.7 66 20 115/59 (77) 96 97.7 Weight Weight [ ] I.O. Intake and Output Intake and Output 11/11/21 07:00 Intake Total 720 ml Balance 720 ml Intake Oral 720 ml # Voids 3 # Bowel Movements 4 Labs Labs Laboratory Tests Test 11/11/21 05:10 Sodium Level 139 mmol/L (136-145) Potassium Level 5.6 mmol/L (3.5-5.1) Chloride Level 108 mmol/L (98-107) Carbon Dioxide Level 24 mmol/L (21-32) Anion Gap 7 (6-14) Blood Urea Nitrogen 44 mg/dL (7-20) Creatinine 1.5 mg/dL (0.6-1.0) Estimated GFR (Cockcroft-Gault) 34.2 Glucose Level 82 mg/dL (70-99) Calcium Level 8.5 mg/dL (8.5-10.1) Phosphorus Level 2.9 mg/dL (2.6-4.7) Albumin 2.4 g/dL (3.4-5.0) Micro Micro Microbiology 11/05/21 Urine Culture - Final, Complete 11/03/21 Blood Culture - Final, Complete NO GROWTH AFTER 5 DAYS Review of Systems Constitutional: yes: alert, oriented Ears/Nose/Throat: Yes: no symptom reported Eyes: Yes: no symptom reported Pulmonary: Yes no symptom reported Cardiovascular: Yes no symptom reported Gastrointestional: Yes: no symptom reported Genitourinary: Yes: incontinence Musculoskeletal: Yes: muscle atrophy Skin: Yes no symptom reported Psychiatric/Neurological: Yes: no symptom reported Endocrine: Yes: no symptom reported Physical Exam General Appearance: no apparent distress Skin: warm Respiratory: decreased breath sounds Heart: S1S2 Abdomen: soft, bowel sounds present Genitourinary: bladder flat Extremities: pulses present Neurology: alert, oriented Assessment Assessment IMP URINARY RETENTION BILATERAL HYDRONEPHROSIS CHRISTIANO-CR DOWN TO 1.5 FROM 2.4 HYPERKALEMIA UTERINE PROLAPSE IRON DEFICIENCY ANEMIA PLAN KAYEXALATE TODAY HYDRATION UROLOGY FOLLOWING PRODUCT BLENDING SUPERVISOR FOLLOWING LABS IN AM WILL FOLLOW ATIF JEFFERS MD November 11, 2021 10:48
[2021-11-11] MEDS ORDERED: SODIUM POLYSTYRENE SULFON/SORB 15 GM/60 ML ORAL.SUSP. PO ONE (11:00)
[2021-11-11 11:31] VITALS: BP 96/51
[2021-11-11] MEDS: IV NORMAL SALINE 1000ML BAG 1,000 ML IV SCH (11:31)
--- NOTE | 2021-11-11 11:35 | PDOC ---
[facility] PROGRESS NOTE Date of Service DOS: DATE: 11/11/21 TIME: 11:33 Chief Complaint Chief Complaint Uterine prolapse Right-sided pneumonia likely bacterial gram-negative possible aspiration Microcytic anemia due to CLAUDIA adult failure to thrive, CHRISTIANO likely obstructive uropathy Bilateral hydronephrosis Acute on chronic urinary retention severe protein malnutrition reported history of scoliosis Right asymptomatic hepatic cyst greater than 4 cm Urinary retentionresolved Mild hyperkalemia Gynecology consulted for uterine prolapse and recommended nonsurgical management GI consult for anemia and hepatic cysts We will start IV iron infusion today and consider outpatient iron supplement replacement Trend hemoglobin Appreciate nephrology Recs Urology consultedno surgical intervention at this time. Continue indwelling Stevenson and possible voiding trial before discharge -PT/OT -Nutrition consult -DVT prophylaxis -Rocephin Doxy for presumed pneumonia.and UTI History of Present Illness History of Present Illness 11/11/2021 No acute events overnight. Patient seen examined bedside. Creatinine stable at 1.5. Some hyperkalemia 5.6 likely related to multiple bowel regimen doses. Will observe closely. Hospice has evaluated and declined home with hospice mainly due to safety issues at home where the nurses unable to safely do any home visits. Patient's chart, labs, images were reviewed and discussed with RN 11/10/2021 No acute events overnight. Patient seen examined bedside. Creatinine 1.5 today. Potassium of 4.8. No bowel movement reported since November 03, 2021. Aggressive bowel regimen initiated. Patient currently refusing suppository. Stevenson catheter placed for urinary retention. Based off discussion with Dr. Campos yesterday with the patient patient just wants to go home and . Discussion with social work states that APS and home health will likely unable to visit the patient because of safety issues in the home. It seems as if the pictures are drawn by several observers which includes the neighbor, APS, social work seems to paint a picture of an unsafe place for discharge. Because of this patient has stated she does not want to do much for her ailments. I will get hospice evaluation to provide all options for the patient before discharging the patient to an environment that is unethical and inhumane from my standpoint. If the patient wishes for her quality life for what ever living condition she wishes then we will have to respect that, but I do not want to proceed with letting her have that autonomy unless I have a some type of palliative care evaluation. 11/09: Potassium elevated at 5.2 and CR 1.5. Stevenson catheter is out. 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 She still very weak depressed focusing on diet and the menu and is a little difficult to redirect about her unsafe home living situation and discussed the fact that there is offer for her home to be renovated but she and her son will be to move out temporarily she is reaching out to her sister today to help with this so that she has stable housing and she would be amenable to going to skilled rehab but she does not feel like she has the energy to follow through with doing this and is contemplating wanting "to go home and just ." 11/07: No acute events overnight. Patient seen examined bedside. Hemoglobin st able 7.7. Patient feels about the same since that time of admission. Urology following and appreciate the recommendations. Plan for voiding trial in the morning. Her creatinine has also improved to 1.6. PT OT has recommended detention. I have discussed with the patient and encouraged her for detention facility however, patient wants to go home because she has a di sabled son and she needs to take care of him. Apparently, neighbor has contacted APS and a file has been opened and social worker clinical had discussion with Danilo Leny, please see social workers note for details. In summary from that conversation, APS had gone to their home and the patient was alert and oriented but APS cannot force change. I believe there is some internal conflict for the patient as the patient does want to go home to be with her son but she also knows that if she does go home she may not be able to take care of her self. Patient will verbalize that she is fine and she is able to take care of her son and herself, however reports from the neighbor and APS is that the condition of the home are not livable. I.e., there is no running water and patient was found at home and her urine and feces. Anticipate for discharge tomorrow after voiding trial and IV iron infusion today. Will trend hemoglobin and continue antibiotics at time of discharge. Patient's chart, labs, images were reviewed and discussed with RN 11/06: No acute events overnight. Patient seen examined bedside. Patient confused about what she needs to do for her medical management. She does not follow closely with any primary doctor. Urology evaluated and recommended continuing indwelling Stevenson catheter and no surgical management at this time. Patient may need voiding trial before discharge as she does not have good follow with any primary physician. Hemoglobin today is at 7.6 after 2 units PRBC. No obvious sources of bleeding. Anemia likely related to iron deficiency anemia. Patient will need SNF placement. Patient's chart, labs, images were reviewed and discussed with RN 11/05: Evaluated examined at bedside. Patient reported she was feeling "bad." Said she felt very "crunched up in her bed." Offered to help her boost up she declined. Declining many interventions. Creatinine a little bit improved renal sent from yesterday showing left hydronephrosis unable to visualize right kidney we will consult interventional radiology to see if neph tubes are an option. Nephrology recommendations reviewed. Continue antibiotics for pneumonia and UTI. 11/04: No acute events overnight. Patient seen examined bedside. AF and VSS still feels about the same. Hemoglobin stable at 7.5. Creatinine improving to 1.6 from 2.0. Stevenson catheter still in place. Magnesium 1.7 replace with IV magnesium sulfate. Patient's chart, labs, images were reviewed and discussed with RN Vitals/I&O Vitals/I&O: Vital Signs Date Time Temp Pulse Resp B/P (MAP) Pulse Ox O2 Delivery O2 Flow Rate FiO2 11/11/21 11:31 98.0 70 20 96/51 (66) 94 Room Air 98.0 I & O 11/10/21 11/10/21 11/11/21 15:00 23:00 07:00 Intake Total 480 ml 240 ml Balance 480 ml 240 ml Physical Exam General: Alert, Oriented X3, Cooperative, No acute distress Heart: Regular rate, Normal S1, Normal S2, No murmurs Lungs: Clear Abdomen: Normal bowel sounds, Soft, No tenderness, No hepatosplenomegaly, No masses Extremities: No clubbing, No cyanosis, No edema, Normal pulses, No tenderness/swelling Skin: No rashes, No breakdown Labs Labs: Laboratory Tests Test 11/11/21 05:10 Sodium Level 139 mmol/L (136-145) Potassium Level 5.6 mmol/L (3.5-5.1) Chloride Level 108 mmol/L (98-107) Carbon Dioxide Level 24 mmol/L (21-32) Anion Gap 7 (6-14) Blood Urea Nitrogen 44 mg/dL (7-20) Creatinine 1.5 mg/dL (0.6-1.0) Estimated GFR (Cockcroft-Gault) 34.2 Glucose Level 82 mg/dL (70-99) Calcium Level 8.5 mg/dL (8.5-10.1) Phosphorus Level 2.9 mg/dL (2.6-4.7) Albumin 2.4 g/dL (3.4-5.0) Assessment and Plan Assessmemt and Plan Problems Medical Problems: (1) Acute renal injury Status: Acute (2) Anemia Status: Acute (3) Failure to thrive in adult Status: Acute (4) Weakness generalized Status: Acute Comment Review of Relevant I have reviewed the following items jyoti (where applicable) has been applied. Medications: Current Medications Medications (Trade) Dose Ordered Sig/Kaleigh Route PRN Reason Start Time Stop Time Status Last Admin Dose Admin Sodium Polystyrene Sulfonate (Kayexalate) 15 gm 1X ONCE PO 11/11/21 11:00 11/11/21 11:01 DC 11/11/21 11:00 Sodium Chloride 1,000 ml @ 75 mls/hr [id number] IV 11/11/21 12:00 11/11/21 11:31 Justifications for Admission Other Justification BEE OLIVEROS MD November 11, 2021 11:35
[2021-11-11 15:08] VITALS: BP 102/57
[2021-11-11] MEDS ORDERED: POLYETHYLENE GLYCOL 3350 17 GM PACKET. PO PRN (17:30)
[2021-11-11 19:49] VITALS: BP 106/58
[2021-11-11] MEDS: CEFDINIR 300 MG CAPSULE PO SCH (20:42)
[2021-11-11] MEDS: PSYLLIUM HUSK (SUGAR FREE) 1 PKT PACKET PO SCH (20:58)
[2021-11-11 23:27] VITALS: BP 112/64
[2021-11-12] MEDS: IV NORMAL SALINE 1000ML BAG 1,000 ML IV SCH ×2 (01:20→14:30)
[2021-11-12] MEDS: PANTOPRAZOLE 40 MG TABLET.DR. PO SCH (06:35)
[2021-11-12] MEDS: oxyCODONE/APAP 5/325 1 TAB TABLET PO PRN ×2 (06:36→13:22)
[2021-11-12 07:08] VITALS: BP 105/59
[2021-11-12] MEDS ORDERED: DOXY100T PO (08:33)
[2021-11-12] MEDS ORDERED: SENN-209 PO (08:33)
[2021-11-12] MEDS ORDERED: MULT1TAB92 PO (08:33)
[2021-11-12] MEDS ORDERED: ASCO100019 PO (08:33)
[2021-11-12] MEDS ORDERED: CEFD300C PO (08:33)
--- NOTE | 2021-11-12 08:35 | SNU/HH DC ---
DISCHARGE WITH HOME HEALTH DISCHARGE INFORMATION: Discharge Date: November 12, 2021 Final Diagnosis: Problems Medical Problems: (1) Acute renal injury Status: Acute (2) Anemia Status: Acute (3) Failure to thrive in adult Status: Acute (4) Weakness generalized Status: Acute Condition on Discharge: Guarded CODE STATUS: Code Status: Full HOME HEALTH: Face to Face: I certify this patient is under my care and that I, or a nurse practitioner or physician's laboratory chemical assistant working with me, had a face to face encounter that meets the physician face to face encounter requirements with this patient on []. Medical Complications: Falls Care Home For: Assess Cardiopulm Status, Assess & Educate Safety, Bowel/Bladder Training, Medication Management, Pain Management RN For Eval/Treatment: Yes Physical Therapy For: Evalulation/Treatment Occupational Therapy For: Evaluation/Treatment Home Health Aide For: Self-care Pt Meets Homebound Status: Poor coordination w/ amb., Unsteady balance w/ amb,, Extreme weakness w/ amb., Fatigue w/ amb., Frequent falls w/ injury, Limited distance walking, Unable to negotiate home POST DISCHARGE ORDERS: Activity Instructions for Disc: Activity as tolerated Weight Bearing Status after Di: As tolerated DIET AFTER DISCHARGE: Regular FOLLOW-UP: Follow up with: Establish PCP [facility] Follow Up With: Gynecology for your uterine prolapse CERTIFICATION STATEMENT: Certification Statement: Certification Statement: Based on the above finding, I certify that this patient is confined to the home and needs intermittent halfway care, physical therapy and/or speech therapy, or continues to need occupational therapy.~ This patient is under my care, and I have initiated the establishment of the plan of care.~ This patient will be followed by myself or a community physician who will periodically review the plan of care. Home Meds Active Scripts Sennosides/Docusate Sodium (Stool Softener-Stimulant Lax) 1 Each Tablet, 1 TAB PO BID for constipation for 30 Days, #60 TAB 2 Refills Prov:BEE OLIVEROS MD 11/12/21 Ascorbic Acid (VITAMIN C) 1,000 Mg Tablet, 1000 MG PO DAILY for supplement for 30 Days, #30 TAB 2 Refills Prov:BEE OLIVEROS MD 11/12/21 Multivits,Ca,Minerals/Iron/Fa (THERA-M TABLET) 1 Each Tablet, 1 TAB PO DAILY for supplement for 30 Days, #30 TAB 2 Refills Prov:BEE OLIVEROS MD 11/12/21 Doxycycline Hyclate (DOXYCYCLINE HYCLATE) 100 Mg Tablet, 100 MG PO BID for pneumonia for 3 Days, #6 TAB Prov:BEE OLIVEROS MD 11/12/21 Cefdinir (CEFDINIR) 300 Mg Capsule, 300 MG PO BID for uti for 3 Days, #6 CAP Prov:BEE OLIVEROS MD 11/12/21 Discontinued Reported Medications Ibuprofen/Acetaminophen (Advil Dual Action 250Mg-125Mg) 1 Each Tablet, 1 EACH PO TID PRN PRN for PAIN, TAB 11/04/21 BEE OLIVEROS MD November 12, 2021 08:34
[2021-11-12 09:04] LABS: CALCIUM 8.4 mg/dL (8.5-10.1); CREATININE 1.4 mg/dL (0.6-1.0); GFR 37.1; POTASSIUM 4.8 mmol/L (3.5-5.1)
[2021-11-12] MEDS: LACTOBACILLUS RHAMNOSUS GG 1 CAPSULE. PO SCH ×2 (09:19→20:51)
[2021-11-12] MEDS: SENNOSIDES/DOCUSATE 8.6/50MG TABLET. PO SCH ×2 (09:19→20:51)
[2021-11-12] MEDS: MULTIVITAMIN with MINERAL TABLET. PO SCH (09:19)
[2021-11-12] MEDS: ASCORBIC ACID 1,000 MG TABLET PO SCH (09:19)
[2021-11-12] MEDS: DOXYCYCLINE HYCLATE 100 MG TABLET PO SCH ×2 (09:19→20:51)
--- NOTE | 2021-11-12 10:56 | PDOC ---
[employer] PROGRESS NOTE Date of Service DOS: DATE: 11/12/21 TIME: 10:51 Chief Complaint Chief Complaint Uterine prolapse Right-sided pneumonia likely bacterial gram-negative possible aspiration Microcytic anemia due to CLAUDIA adult failure to thrive, CHRISTIANO likely obstructive uropathy Bilateral hydronephrosis Acute on chronic urinary retention severe protein malnutrition reported history of scoliosis Right asymptomatic hepatic cyst greater than 4 cm Urinary retentionresolved Mild hyperkalemia Gynecology consulted for uterine prolapse and recommended nonsurgical management GI consult for anemia and hepatic cysts We will start IV iron infusion today and consider outpatient iron supplement replacement Trend hemoglobin Appreciate nephrology Recs Urology consultedno surgical intervention at this time. Continue indwelling Stevenson and possible voiding trial before discharge -PT/OT -Nutrition consult -DVT prophylaxis -Rocephin Doxy for presumed pneumonia.and UTI History of Present Illness History of Present Illness 11/12/2021 No acute events overnight. Patient seen examined bedside. AF and VSS. Potassium normalized after fluids. Creatinine stable at 1.4 and improved compared to admission. Patient is medically stable for discharge. Attempted to speak to the patient about discharge about going home, however she feels circumstances are unsafe due to weather and patient unable to get to the front door. We have explained and verbalized to her that APS has already been contacted and they are unwilling to change her current home situation. [facility] has evaluated the patient and they determined that the patient is unsafe for any evaluation or in-home visits. [facility] patient there and there is no documentation of the visit however nurse of this patient has stated that [facility] will reevaluate on Saturday. At this point I am waiting for the patient to call her son to let him know that custodial facility would be the best option for her and that she can choose any nursing facility that works best with her son who has mental health issues and also for logistics reasons. I would recommend to have case management social worker talk with the patient and see which facilities with a at least consider so that at least we can get the process started. Patient's chart, labs, images were reviewed and discussed with RN 11/11/2021 No acute events overnight. Patient seen examined bedside. Creatinine stable at 1.5. Some hyperkalemia 5.6 likely related to multiple bowel regimen doses. Will observe closely. Hospice has evaluated and declined home with hospice mainly due to safety issues at home where the nurses unable to safely do any home visits. Patient's chart, labs, images were reviewed and discussed with RN 11/10/2021 No acute events overnight. Patient seen examined bedside. Creatinine 1.5 today. Potassium of 4.8. No bowel movement reported since November 03, 2021. Aggressive bowel regimen initiated. Patient currently refusing suppository. Stevenson catheter placed for urinary retention. Based off discussion with Dr. Campos yesterday with the patient patient just wants to go home and . Discussion with social work states that APS and home health will likely unable to visit the patient because of safety issues in the home. It seems as if the pictures are drawn by several observers which includes the neighbor, APS, social work seems to paint a picture of an unsafe place for discharge. Because of this patient has stated she does not want to do much for her ailments. I will get hospice evaluation to provide all options for the patient before discharging the patient to an environment that is unethical and inhumane from my standpoint. If the patient wishes for her quality life for what ever living condition she wishes then we will have to respect that, but I do not want to proceed with letting her have that autonomy unless I have a some type of palliative care evaluation. 11/09: Potassium elevated at 5.2 and CR 1.5. Stevenson catheter is out. Significant bilateral lower extremity when she sitting up despite her compressor certified caregiver stockings and she notes she is little short of breath when laying flat in the bed. She still very weak depressed focusing on diet and the menu and is a little difficult to redirect about her unsafe home living situation and discussed the fact that there is offer for her home to be renovated but she and her son will be to move out temporarily she is reaching out to her sister today to help with this so that she has stable housing and she would be amenable to going to skilled rehab but she does not feel like she has the energy to follow through with doing this and is contemplating wanting "to go home and just ." 11/07: No acute events overnight. Patient seen examined bedside. Hemoglobin stable 7.7. Patient feels about the same since that time of admission. Urology following and appreciate the recommendations. Plan for voiding trial in the morning. Her creatinine has also improved to 1.6. PT OT has recommended custodial. I have discussed with the patient and encouraged her for custodial facility however, patient wants to go home because she has a disabled son and she needs to take care of him. Apparently, neighbor has contacted APS and a file has been opened and case management social worker had discussion with Danilo Michele, please see social workers note for details. In summary from that conversation, APS had gone to their home and the patient was alert and oriented but APS cannot force change. I believe there is some internal conflict for the patient as the patient does want to go home to be with her son but she also knows that if she does go home she may not be able to take care of her self. Patient will verbalize that she is fine and she is able to take care of her son and herself, however reports from the neighbor and APS is that the condi tion of the home are not livable. I.e., there is no running water and patient was found at home and her urine and feces. Anticipate for discharge tomorrow after voiding trial and IV iron infusion today. Will trend hemoglobin and continue antibiotics at time of discharge. Patient's chart, labs, images were reviewed and discussed with RN 11/06: No acute events overnight. Patient seen examined bedside. Patient confused about what she needs to do for her medical management. She does not follow closely with any primary doctor. Urology evaluated and recommended continuing indwelling Stevenson catheter and no surgical management at this time. Patient may need voiding trial before discharge as she does not have good follow with any primary physician. Hemoglobin today is at 7.6 after 2 units PRBC. No obvious sources of bleeding. Anemia likely related to iron deficiency anemia. Patient will need SNF placement. Patient's chart, labs, images were reviewed and discussed with RN 11/05: Evaluated examined at bedside. Patient reported she was feeling "bad." Said she felt very "crunched up in her bed." Offered to help her boost up she declined. Declining many interventions. Creatinine a little bit improved renal sent from yesterday showing left hydronephrosis unable to visualize right kidney we will consult interventional radiology to see if neph tubes are an option. Nephrology recommendations reviewed. Continue antibiotics for pneumonia and UTI. 11/04: No acute events overnight. Patient seen examined bedside. AF and VSS still feels about the same. Hemoglobin stable at 7.5. Creatinine improving to 1.6 from 2.0. Stevenson catheter still in place. Magnesium 1.7 replace with IV magnesium sulfate. Patient's chart, labs, images were reviewed and discussed with RN Vitals/I&O Vitals/I&O: Vital Signs Date Time Temp Pulse Resp B/P (MAP) Pulse Ox O2 Delivery O2 Flow Rate FiO2 11/12/21 08:00 Room Air 11/12/21 07:08 60 18 105/59 (74) 97 11/11/21 23:27 98.0 98.0 I & O 11/11/21 11/11/21 11/12/21 15:00 23:00 07:00 Intake Total 450 ml 200 ml 1060 ml Balance 450 ml 200 ml 1060 ml Physical Exam General: Alert, Oriented X3, Cooperative, No acute distress Heart: Regular rate, Normal S1, Normal S2, No murmurs Lungs: Clear Abdomen: Normal bowel sounds, Soft, No tenderness, No hepatosplenomegaly, No masses Extremities: No clubbing, No cyanosis, No edema, Normal pulses, No tenderness/swelling Skin: No rashes, No breakdown Labs Labs: Laboratory Tests Test 11/12/21 08:05 Sodium Level 141 mmol/L (136-145) Potassium Level 4.8 mmol/L (3.5-5.1) Chloride Level 108 mmol/L (98-107) Carbon Dioxide Level 24 mmol/L (21-32) Anion Gap 9 (6-14) Blood Urea Nitrogen 45 mg/dL (7-20) Creatinine 1.4 mg/dL (0.6-1.0) Estimated GFR (Cockcroft-Gault) 37.1 Glucose Level 78 mg/dL (70-99) Calcium Level 8.4 mg/dL (8.5-10.1) Magnesium Level 2.0 mg/dL (1.8-2.4) Assessment and Plan Assessmemt and Plan Problems Medical Problems: (1) Acute renal injury Status: Acute (2) Anemia Status: Acute (3) Failure to thrive in adult Status: Acute (4) Weakness generalized Status: Acute Comment Review of Relevant I have reviewed the following items jyoti (where applicable) has been applied. Medications: Current Medications Medications (Trade) Dose Ordered Sig/Kaleigh Route PRN Reason Start Time Stop Time Status Last Admin Dose Admin Sodium Polystyrene Sulfonate (Kayexalate) 15 gm 1X ONCE PO 11/11/21 11:00 11/11/21 11:01 DC 11/11/21 11:00 Sodium Chloride 1,000 ml @ 75 mls/hr [id number] IV 11/11/21 12:00 11/12/21 01:20 Justifications for Admission Other Justification BEE OLIVEROS MD November 12, 2021 10:56
[2021-11-12 11:00] VITALS: BP 99/54
--- NOTE | 2021-11-12 11:49 | PDOC ---
Renal-Progress Notes Subjective Notes Notes NO NEW COMPLAINTS History of Present Illness Hx of present illness STABLE Vitals Vitals Vital Signs Date Time Temp Pulse Resp B/P (MAP) Pulse Ox O2 Delivery O2 Flow Rate FiO2 11/12/21 11:00 97.6 66 18 99/54 (69) 98 Room Air 97.6 Weight Weight [ ] I.O. Intake and Output Intake and Output 11/12/21 07:00 Intake Total 1710 ml Balance 1710 ml Intake Oral 710 ml IV Total 1000 ml # Voids 4 # Bowel Movements 1 Labs Labs Laboratory Tests Test 11/12/21 08:05 Sodium Level 141 mmol/L (136-145) Potassium Level 4.8 mmol/L (3.5-5.1) Chloride Level 108 mmol/L (98-107) Carbon Dioxide Level 24 mmol/L (21-32) Anion Gap 9 (6-14) Blood Urea Nitrogen 45 mg/dL (7-20) Creatinine 1.4 mg/dL (0.6-1.0) Estimated GFR (Cockcroft-Gault) 37.1 Glucose Level 78 mg/dL (70-99) Calcium Level 8.4 mg/dL (8.5-10.1) Magnesium Level 2.0 mg/dL (1.8-2.4) Micro Micro Microbiology 11/05/21 Urine Culture - Final, Complete 11/03/21 Blood Culture - Final, Complete NO GROWTH AFTER 5 DAYS Review of Systems Constitutional: yes: alert, oriented Ears/Nose/Throat: Yes: no symptom reported Eyes: Yes: no symptom reported Pulmonary: Yes no symptom reported Cardiovascular: Yes no symptom reported Gastrointestional: Yes: no symptom reported Genitourinary: Yes: incontinence Musculoskeletal: Yes: muscle atrophy Skin: Yes no symptom reported Psychiatric/Neurological: Yes: no symptom reported Endocrine: Yes: no symptom reported Physical Exam General Appearance: no apparent distress Skin: warm Respiratory: decreased breath sounds Heart: S1S2 Abdomen: soft, bowel sounds present Genitourinary: bladder flat Extremities: pulses present Neurology: alert, oriented Assessment Assessment IMP URINARY RETENTION BILATERAL HYDRONEPHROSIS CHRISTIANO-CR DOWN TO 1.4 FROM 2.4 HYPERKALEMIA-CORRECTED UTERINE PROLAPSE IRON DEFICIENCY ANEMIA PLAN HYDRATION UROLOGY FOLLOWING SUPERVISOR FOLLOWING LABS IN AM WILL FOLLOW ATIF JEFFERS MD November 12, 2021 11:49
[2021-11-12 15:00] VITALS: BP 99/53
--- NOTE | 2021-11-12 16:20 | NUR ---
Patient had physical therapy today, patient sat on edge of bed and did sit to stand, refused to get out of bed to walk or to even get to the chair. Patient did talk to son and he agreed that patient should go to [facility] to get stronger. Patient states she would like to go to [facility].
[2021-11-12 19:00] VITALS: BP 103/52
[2021-11-12] MEDS: ACETAMINOPHEN 325 MG TABLET. PO PRN (20:50)
[2021-11-12] MEDS: CEFDINIR 300 MG CAPSULE PO SCH (20:51)
[2021-11-12] MEDS: PSYLLIUM HUSK (SUGAR FREE) 1 PKT PACKET PO SCH (21:00)
[2021-11-12 23:00] VITALS: BP 97/52
[2021-11-13] MEDS: oxyCODONE/APAP 5/325 1 TAB TABLET PO PRN ×2 (02:31→16:06)
[2021-11-13] MEDS: IV NORMAL SALINE 1000ML BAG 1,000 ML IV SCH ×2 (02:40→16:01)
[2021-11-13 03:00] VITALS: BP 103/61
[2021-11-13 07:00] VITALS: BP 110/63
[2021-11-13 08:31] LABS: CALCIUM 8.3 mg/dL (8.5-10.1); CREATININE 1.3 mg/dL (0.6-1.0); GFR 40.4; POTASSIUM 5.1 mmol/L (3.5-5.1)
[2021-11-13] MEDS: LACTOBACILLUS RHAMNOSUS GG 1 CAPSULE. PO SCH ×2 (08:51→23:03)
[2021-11-13] MEDS: MULTIVITAMIN with MINERAL TABLET. PO SCH (08:51)
[2021-11-13] MEDS: SENNOSIDES/DOCUSATE 8.6/50MG TABLET. PO SCH ×2 (08:51→23:05)
[2021-11-13] MEDS: ASCORBIC ACID 1,000 MG TABLET PO SCH (08:51)
[2021-11-13] MEDS: DOXYCYCLINE HYCLATE 100 MG TABLET PO SCH (08:51)
[2021-11-13] MEDS: PANTOPRAZOLE 40 MG TABLET.DR. PO SCH (08:51)
[2021-11-13] MEDS: ACETAMINOPHEN 325 MG TABLET. PO PRN ×2 (08:54→23:04)
--- NOTE | 2021-11-13 10:24 | PDOC ---
Date of Service: DATE: 11/13/21 TIME: 10:21 Subjective: Subjective: No GI complaints. "What's going on with my uterus?" Says she's going to rehab. Stooled a lot over the weekend. Objective: Objective: Reviewed notes, has not been motivated to participate in therapy, some discussion for Hospice last week but now SNU? Vital Signs: Vital Signs Date Time Temp Pulse Resp B/P (MAP) Pulse Ox O2 Delivery O2 Flow Rate FiO2 11/13/21 07:00 97.8 83 10 110/63 (79) 97 Room Air 97.8 Labs: Laboratory Tests Test 11/13/21 06:42 Sodium Level 141 mmol/L Potassium Level 5.1 mmol/L Chloride Level 109 mmol/L Carbon Dioxide Level 21 mmol/L Anion Gap 11 Blood Urea Nitrogen 42 mg/dL Creatinine 1.3 mg/dL Estimated GFR (Cockcroft-Gault) 40.4 Glucose Level 72 mg/dL Calcium Level 8.3 mg/dL PE: GEN: NAD LUNGS: CTAB HEART: RRR ABD: NABS, S/ND/NT NEURO/PSYCH: A & O 3, flat A/P: CLAUDIA, pelvic organ prolapse Constipation - resolved -- Await discharge plans. Continue iron and PPI. Outpt EGD and colonoscopy. Justicifation of Admission Dx: Justifications for Admission: Justification of Admission Dx: N/A WILLIAM DUARTE November 13, 2021 10:24
--- NOTE | 2021-11-13 10:49 | PDOC ---
Renal-Progress Notes Subjective Notes Notes TIRED History of Present Illness Hx of present illness WEAKNESS, DECONDITIONING Vitals Vitals Vital Signs Date Time Temp Pulse Resp B/P (MAP) Pulse Ox O2 Delivery O2 Flow Rate FiO2 11/13/21 08:00 Room Air 11/13/21 07:00 97.8 83 10 110/63 (79) 97 97.8 Weight Weight [ ] I.O. Intake and Output Intake and Output 11/13/21 07:00 Intake Total 340 ml Balance 340 ml Intake Oral 340 ml # Voids 5 Labs Labs Laboratory Tests Test 11/13/21 06:42 Sodium Level 141 mmol/L (136-145) Potassium Level 5.1 mmol/L (3.5-5.1) Chloride Level 109 mmol/L (98-107) Carbon Dioxide Level 21 mmol/L (21-32) Anion Gap 11 (6-14) Blood Urea Nitrogen 42 mg/dL (7-20) Creatinine 1.3 mg/dL (0.6-1.0) Estimated GFR (Cockcroft-Gault) 40.4 Glucose Level 72 mg/dL (70-99) Calcium Level 8.3 mg/dL (8.5-10.1) Micro Micro Microbiology 11/05/21 Urine Culture - Final, Complete 11/03/21 Blood Culture - Final, Complete NO GROWTH AFTER 5 DAYS Review of Systems Constitutional: yes: alert, oriented Ears/Nose/Throat: Yes: no symptom reported Eyes: Yes: no symptom reported Pulmonary: Yes no symptom reported Cardiovascular: Yes no symptom reported Gastrointestional: Yes: no symptom reported Genitourinary: Yes: incontinence Musculoskeletal: Yes: muscle atrophy Skin: Yes no symptom reported Psychiatric/Neurological: Yes: no symptom reported Endocrine: Yes: no symptom reported Physical Exam General Appearance: no apparent distress Skin: warm Respiratory: decreased breath sounds Heart: S1S2 Abdomen: soft, bowel sounds present Genitourinary: bladder flat Extremities: pulses present Neurology: alert, oriented Assessment Assessment IMP URINARY RETENTION BILATERAL HYDRONEPHROSIS CHRISTIANO-CR DOWN TO 1.3 FROM 2.4 HYPERKALEMIA-CORRECTED UTERINE PROLAPSE IRON DEFICIENCY ANEMIA SEVERE DECONDITIONING PLAN HYDRATION UROLOGY FOLLOWING MAINTAIN SMITH ELECTRIC FORK OPERATOR FOLLOWING SNU PENDING LABS IN AM WILL FOLLOW ATIF JEFFERS MD November 13, 2021 10:49
[2021-11-13 11:00] VITALS: BP 101/53
--- NOTE | 2021-11-13 13:18 | PDOC ---
[employer] PROGRESS NOTE Date of Service DOS: DATE: 11/13/21 TIME: 13:17 Chief Complaint Chief Complaint Uterine prolapse Right-sided pneumonia likely bacterial gram-negative possible aspiration Microcytic anemia due to CLAUDIA adult failure to thrive, CHRISTIANO likely obstructive uropathy Bilateral hydronephrosis Acute on chronic urinary retention severe protein malnutrition reported history of scoliosis Right asymptomatic hepatic cyst greater than 4 cm Urinary retentionresolved Mild hyperkalemia Gynecology consulted for uterine prolapse and recommended nonsurgical management GI consult for anemia and hepatic cysts We will start IV iron infusion today and consider outpatient iron supplement replacement Trend hemoglobin Appreciate nephrology Recs Urology consultedno surgical intervention at this time. Continue indwelling Stevenson and possible voiding trial before discharge -PT/OT -Nutrition consult -DVT prophylaxis -Rocephin Doxy for presumed pneumonia.and UTI History of Present Illness History of Present Illness 11/13 Patient seen and examined at bedside. Working on placement options. Difficult social situation. Medically stable. Consult recommendations reviewed. Continue current that regard. 11/12/2021 No acute events overnight. Patient seen examined bedside. AF and VSS. Potassium normalized after fluids. Creatinine stable at 1.4 and improved compared to admission. Patient is medically stable for discharge. Attempted to speak to the patient about discharge about going home, however she feels circumstances are unsafe due to weather and patient unable to get to the front door. We have explained and verbalized to her that APS has already been co ntacted and they are unwilling to change her current home situation. [facility] has evaluated the patient and they determined that the patient is unsafe for any evaluation or in-home visits. [facility] patient there and there is no documentation of the visit however nurse of this patient has stated that [facility] will reevaluate on Saturday. At this point I am waiting for the patient to call her son to let him know that intermediate facility would be the best option for her and that she can choose any nursing facility that works best with her son who has mental health issues and also for logistics reasons. I would recommend to have social professionals talk with the patient and see which facilities with a at least consider so that at least we can get the process started. Patient's chart, labs, images were reviewed and discussed with RN 11/11/2021 No acute events overnight. Patient seen examined bedside. Creatinine stable at 1.5. Some hyperkalemia 5.6 likely related to multiple bowel regimen doses. Will observe closely. Hospice has evaluated and declined home with hospice mainly due to safety issues at home where the nurses unable to safely do any home visits. Patient's chart, labs, images were reviewed and discussed with RN 11/10/2021 No acute events overnight. Patient seen examined bedside. Creatinine 1.5 today. Potassium of 4.8. No bowel movement reported since November 03, 2021. Aggressive bowel regimen initiated. Patient currently refusing suppository. Stevenson catheter placed for urinary retention. Based off discussion with Dr. Campos yesterday with the patient patient just wants to go home and . Discussion with social work states that APS and home health will likely unable to visit the patient because of safety issues in the home. It seems as if the pictures are drawn by several observers which includes the neighbor, APS, social work seems to paint a picture of an unsafe place for discharge. Because of this patient has stated she does not want to do much for her ailments. I will get hospice evaluation to provide all options for the patient before discharging the patient to an environment that is unethical and inhumane from my standpoint. If the patient wishes for her quality life for what ever living condition she wishes then we will have to respect that, but I do not want to proceed with letting her have that autonomy unless I have a some type of palliative care evaluation. 11/09: Potassium elevated at 5.2 and CR 1.5. Stevenson catheter is out. 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 She still very weak depressed focusing on diet and the menu and is a little difficult to redirect about her unsafe home living situation and discussed the fact that there is offer for her home to be renovated but she and her son will be to move out temporarily she is reaching out to her sister today to help with this so that she has stable housing and she would be amenable to going to skilled rehab but she does not feel like she has the energy to follow through with doing this and is contemplating wanting "to go home and just ." 11/07: No acute events overnight. Patient seen examined bedside. Hemoglobin stable 7.7. Patient feels about the same since that time of admission. Urology following and appreciate the recommendations. Plan for voiding trial in the morning. Her creatinine has also improved to 1.6. PT OT has recommended intermediate. I have discussed with the patient and encouraged her for intermediate facility however, patient wants to go home because she has a disabled son and she needs to take care of him. Apparently, neighbor has contacted APS and a file has been opened and social professionals had discussion with Danilo Michele, please see social workers note for details. In summary from that conversation, APS had gone to their home and the patient was alert and oriented but APS cannot force change. I believe there is some internal conflict for the patient as the patient does want to go home to be with her son but she also knows that if she does go home she may not be able to take care of her self. Patient will verbalize that she is fine and she is able to take care of her son and herself, however reports from the neighbor and APS is that the condition of the home are not livable. I.e., there is no running water and patient was found at home and her urine and feces. Anticipate for discharge tomorrow after voiding trial and IV iron infusion today. Will trend hemoglobin and continue antibiotics at time of discharge. Patient's chart, labs, images were reviewed and discussed with RN 11/06: No acute events overnight. Patient seen examined bedside. Patient confused about what she needs to do for her medical management. She does not follow closely with any primary doctor. Urology evaluated and recommended continuing indwelling Stevenson catheter and no surgical management at this time. Patient may need voiding trial before discharge as she does not have good follow with any primary physician. Hemoglobin today is at 7.6 after 2 units PRBC. No obvious sources of bleeding. Anemia likely related to iron deficiency anemia. Patient will need SNF placement. Patient's chart, labs, images were reviewed and discussed with RN 11/05: Evaluated examined at bedside. Patient reported she was feeling "bad." Said she felt very "crunched up in her bed." Offered to help her boost up she declined. Declining many interventions. Creatinine a little bit improved renal sent from yesterday showing left hydronephrosis unable to visualize right kidney we will consult interventional radiology to see if neph tubes are an option. Nephrology recommendations reviewed. Continue antibiotics for pneumonia and UTI. 11/04: No acute events overnight. Patient seen examined bedside. AF and VSS still feels about the same. Hemoglobin stable at 7.5. Creatinine improving to 1.6 from 2.0. Stevenson catheter still in place. Magnesium 1.7 replace with IV magnesium sulfate. Patient's chart, labs, images were reviewed and discussed with RN Vitals/I&O Vitals/I&O: Vital Signs Date Time Temp Pulse Resp B/P (MAP) Pulse Ox O2 Delivery O2 Flow Rate FiO2 11/13/21 11:00 98.2 71 18 101/53 (69) 96 Room Air 98.2 I & O 11/12/21 11/12/21 11/13/21 15:00 23:00 07:00 Intake Total 340 ml Balance 340 ml Physical Exam General: Alert, Oriented X3, Cooperative, No acute distress Heart: Regular rate, Normal S1, Normal S2, No murmurs Lungs: Clear Abdomen: Normal bowel sounds, Soft, No tenderness, No hepatosplenomegaly, No masses Extremities: No clubbing, No cyanosis, No edema, Normal pulses, No tenderness/swelling Skin: No rashes, No breakdown Labs Labs: Laboratory Tests Test 11/13/21 06:42 Sodium Level 141 mmol/L (136-145) Potassium Level 5.1 mmol/L (3.5-5.1) Chloride Level 109 mmol/L (98-107) Carbon Dioxide Level 21 mmol/L (21-32) Anion Gap 11 (6-14) Blood Urea Nitrogen 42 mg/dL (7-20) Creatinine 1.3 mg/dL (0.6-1.0) Estimated GFR (Cockcroft-Gault) 40.4 Glucose Level 72 mg/dL (70-99) Calcium Level 8.3 mg/dL (8.5-10.1) Assessment and Plan Assessmemt and Plan Problems Medical Problems: (1) Acute renal injury Status: Acute (2) Anemia Status: Acute (3) Failure to thrive in adult Status: Acute (4) Weakness generalized Status: Acute Comment Review of Relevant I have reviewed the following items jyoti (where applicable) has been applied. Justifications for Admission Other Justification ALMA MCCABE MD November 13, 2021 13:17
--- NOTE | 2021-11-13 13:37 | NUR ---
SS following up with discharge planning and discussed with pt RN. Pt is currently on room air. COVID19 negative. PT/OT recommended [facility] unit. Home Healthcare and Hospice companies have reported that they will not come into there home unless plumbing is fixed due to safety concerns for there staff. Referrals sent to [facility], ; fax [phone], and [facility], ; fax [phone]. [facility] declined due to unsafe discharge plan and being out of network with pt's insurance. [facility] discussing with nursing staff and SW staff at facility and will notify SS of there decision. SS met with pt and discussed safety concerns with discharging to home. Pt reported that she will discharge to home when she is able. Pt has not accepted help from [facility]PS at this time. SS will continue to follow for discharge planning.
[2021-11-13 15:00] VITALS: BP 109/61
[2021-11-13 19:00] VITALS: BP 114/60
[2021-11-13] MEDS: PSYLLIUM HUSK (SUGAR FREE) 1 PKT PACKET PO SCH (21:00)
[2021-11-13 23:08] VITALS: BP 104/56
[2021-11-14] MEDS: IV NORMAL SALINE 1000ML BAG 1,000 ML IV SCH ×2 (06:40→16:54)
[2021-11-14 07:00] VITALS: BP 114/63
[2021-11-14] MEDS: PANTOPRAZOLE 40 MG TABLET.DR. PO SCH (08:59)
[2021-11-14] MEDS: SENNOSIDES/DOCUSATE 8.6/50MG TABLET. PO SCH ×2 (08:59→20:50)
[2021-11-14] MEDS: ASCORBIC ACID 1,000 MG TABLET PO SCH (08:59)
[2021-11-14] MEDS: MULTIVITAMIN with MINERAL TABLET. PO SCH (08:59)
[2021-11-14] MEDS: LACTOBACILLUS RHAMNOSUS GG 1 CAPSULE. PO SCH ×2 (08:59→20:39)
[2021-11-14] MEDS: ACETAMINOPHEN 325 MG TABLET. PO PRN ×2 (09:07→20:41)
[2021-11-14 09:41] LABS: CALCIUM 8.9 mg/dL (8.5-10.1); CREATININE 1.4 mg/dL (0.6-1.0); GFR 37.1; POTASSIUM 4.9 mmol/L (3.5-5.1)
--- NOTE | 2021-11-14 10:45 | PDOC ---
Date of Service: DATE: 11/14/21 TIME: 10:40 Subjective: Subjective: No GI complaints. Cleaned breakfast tray. Nurse present - soft stool yesterday. Pt says she sat in the chair for 4 hours yesterday, does not get out of bed to use restroom. Objective: Vital Signs: Vital Signs Date Time Temp Pulse Resp B/P (MAP) Pulse Ox O2 Delivery O2 Flow Rate FiO2 11/14/21 07:00 97.8 66 18 114/63 (80) 96 Room Air 97.8 Labs: Laboratory Tests Test 11/14/21 08:35 Sodium Level 142 mmol/L Potassium Level 4.9 mmol/L Chloride Level 110 mmol/L Carbon Dioxide Level 20 mmol/L Anion Gap 12 Blood Urea Nitrogen 44 mg/dL Creatinine 1.4 mg/dL Estimated GFR (Cockcroft-Gault) 37.1 Glucose Level 82 mg/dL Calcium Level 8.9 mg/dL PE: GEN: NAD LUNGS: CTAB HEART: RRR ABD: NABS, S/ND/NT NEURO/PSYCH: A & O 3, depressed A/P: CLAUDIA, pelvic organ prolapse Urinary retention, CHRISTIANO -- Discharge plans unclear. Continue iron and PPI. Outpt EGD and colonoscopy. Justicifation of Admission Dx: Justifications for Admission: Justification of Admission Dx: N/A WILLIAM DUARTE November 14, 2021 10:45
[2021-11-14 11:00] VITALS: BP 125/68
--- NOTE | 2021-11-14 11:06 | PDOC ---
Renal-Progress Notes Subjective Notes Notes NO NEW COMPLAINTS History of Present Illness Hx of present illness STABLE Vitals Vitals Vital Signs Date Time Temp Pulse Resp B/P (MAP) Pulse Ox O2 Delivery O2 Flow Rate FiO2 11/14/21 07:00 97.8 66 18 114/63 (80) 96 Room Air 97.8 Weight Weight [ ] Labs Labs Laboratory Tests Test 11/14/21 08:35 Sodium Level 142 mmol/L (136-145) Potassium Level 4.9 mmol/L (3.5-5.1) Chloride Level 110 mmol/L (98-107) Carbon Dioxide Level 20 mmol/L (21-32) Anion Gap 12 (6-14) Blood Urea Nitrogen 44 mg/dL (7-20) Creatinine 1.4 mg/dL (0.6-1.0) Estimated GFR (Cockcroft-Gault) 37.1 Glucose Level 82 mg/dL (70-99) Calcium Level 8.9 mg/dL (8.5-10.1) Micro Micro Microbiology 11/05/21 Urine Culture - Final, Complete 11/03/21 Blood Culture - Final, Complete NO GROWTH AFTER 5 DAYS Review of Systems Constitutional: yes: alert, oriented Ears/Nose/Throat: Yes: no symptom reported Eyes: Yes: no symptom reported Pulmonary: Yes no symptom reported Cardiovascular: Yes no symptom reported Gastrointestional: Yes: no symptom reported Genitourinary: Yes: incontinence Musculoskeletal: Yes: muscle atrophy Skin: Yes no symptom reported Psychiatric/Neurological: Yes: no symptom reported Endocrine: Yes: no symptom reported Physical Exam General Appearance: no apparent distress Skin: warm Respiratory: decreased breath sounds Heart: S1S2 Abdomen: soft, bowel sounds present Genitourinary: bladder flat Extremities: pulses present Neurology: alert, oriented Assessment Assessment IMP URINARY RETENTION BILATERAL HYDRONEPHROSIS CHRISTIANO-CR DOWN TO 1.4 FROM 2.4 HYPERKALEMIA-CORRECTED UTERINE PROLAPSE IRON DEFICIENCY ANEMIA SEVERE DECONDITIONING PLAN HYDRATION UROLOGY FOLLOWING MAINTAIN SMITH CUSTOMER CARE COORDINATOR FOLLOWING SNU PENDING WILL FOLLOW ATIF JEFFERS MD November 14, 2021 11:06
--- NOTE | 2021-11-14 13:18 | NUR ---
SS following up with discharge planning. SS reviewed pt chart and discussed with RN. Pt is currently on room air. COVID19 negative. PT/OT recommended [facility] unit. SS discussed with [facility], ; fax [phone]. Pt accepted for [facility] unit pending insurance authorization. Clinical updates sent to [facility]. SS will continue to follow for discharge planning.
--- NOTE | 2021-11-14 14:52 | PDOC ---
[employer] PROGRESS NOTE Date of Service DOS: DATE: 11/14/21 TIME: 14:52 Chief Complaint Chief Complaint Uterine prolapse Right-sided pneumonia likely bacterial gram-negative possible aspiration Microcytic anemia due to CLAUDIA adult failure to thrive, CHRISTIANO likely obstructive uropathy Bilateral hydronephrosis Acute on chronic urinary retention severe protein malnutrition reported history of scoliosis Right asymptomatic hepatic cyst greater than 4 cm Urinary retentionresolved Mild hyperkalemia Gynecology consulted for uterine prolapse and recommended nonsurgical management GI consult for anemia and hepatic cysts We will start IV iron infusion today and consider outpatient iron supplement replacement Trend hemoglobin Appreciate nephrology Recs Urology consultedno surgical intervention at this time. Continue indwelling Stevenson and possible voiding trial before discharge -PT/OT -Nutrition consult -DVT prophylaxis -Rocephin Doxy for presumed pneumonia.and UTI History of Present Illness History of Present Illness 11/14 Seen at bedside. Patient remained stable. [facility]. Can discharge anytime at this point. 11/13 Patient seen and examined at bedside. Working on placement options. Difficult social situation. Medically stable. Consult recommendations reviewed. Continue current that regard. 11/12/2021 No acute events overnight. Patient seen examined bedside. AF and VSS. Potassium normalized after fluids. Creatinine stable at 1.4 and improved compared to admission. Patient is medically stable for discharge. Attempted to speak to the patient about discharge about going home, however she feels circumstances are unsafe due to weather and patient unable to get to the front door. We have explained and verbalized to her that APS has already been contacted and they are unwilling to change her current home situation. [facility] has evaluated the patient and they determined that the patient is unsafe for any evaluation or in-home visits. [facility] patient there and there is no documentation of the visit however nurse of this patient has stated that [facility] will reevaluate on Saturday. At this point I am waiting for the patient to call her son to let him know that [facility] facility would be the best option for her and that she can choose any nursing facility that works best with her son who has mental health issues and also for logistics reasons. I would recommend to have outreach and education social worker talk with the patient and see which facilities with a at least consider so that at least we can get the process started. Patient's chart, labs, images were reviewed and discussed with RN 11/11/2021 No acute events overnight. Patient seen examined bedside. Creatinine stable at 1.5. Some hyperkalemia 5.6 likely related to multiple bowel regimen doses. Will observe closely. Hospice has evaluated and declined home with hospice mainly due to safety issues at home where the nurses unable to safely do any home visits. Patient's chart, labs, images were reviewed and discussed with RN 11/10/2021 No acute events overnight. Patient seen examined bedside. Creatinine 1.5 today. Potassium of 4.8. No bowel movement reported since November 03, 2021. Aggressive bowel regimen initiated. Patient currently refusing suppository. Stevenson catheter placed for urinary retention. Based off discussion with Dr. Campos yesterday with the patient patient just wants to go home and . Discussion with social work states that APS and home health will likely unable to visit the patient because of safety issues in the home. It seems as if the pictures are drawn by several observers which includes the neighbor, APS, social work seems to paint a picture of an unsafe place for discharge. Because of this patient has stated she does not want to do much for her ailments. I will get hospice evaluation to provide all options for the patient before discharging the patient to an environment that is unethical and inhumane from my standpoint. If the patient wishes for her quality life for what ever living condition she wishes then we will have to respect that, but I do not want to proceed with letting her have that autonomy unless I have a some type of palliative care evaluation. 11/09: Potassium elevated at 5.2 and CR 1.5. Stevenson catheter is out. 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 She still very weak depressed focusing on diet and the menu and is a little difficult to redirect about her unsafe home living situation and discussed the fact that there is offer for her home to be renovated but she and her son will be to move out temporarily she is reaching out to her sister today to help with this so that she has stable housing and she would be amenable to going to skilled rehab but she does not feel like she has the energy to follow through with doing this and is contemplating wanting "to go home and just ." 11/07: No acute events overnight. Patient seen examined bedside. Hemoglobin stable 7.7. Patient feels about the same since that time of admission. Urology following and appreciate the recommendations. Plan for voiding trial in the morning. Her creatinine has also improved to 1.6. PT OT has recommended [facility]. I have discussed with the patient and encouraged her for [facility] facility however, patient wants to go home because she has a disabled son and she needs to take care of him. Apparently, neighbor has contacted [facility]PS and a file has been opened and outreach and education social worker had discussion with Danilo Michele, please see social workers note for details. In summary from that conversation, APS had gone to their home and the patient was alert and oriented but APS cannot force change. I believe there is some internal conflict for the patient as the patient does want to go home to be with her son but she also knows that if she does go home she may not be able to take care of her self. Patient will verbalize that she is fine and she is able to take care of her son and herself, however reports from the neighbor and APS is that the condition of the home are not livable. I.e., there is no running water and patient was found at home and her urine and feces. Anticipate for discharge tomorrow after voiding trial and IV iron infusion today. Will trend hemoglobin and continue antibiotics at time of discharge. Patient's chart, labs, images were reviewed and discussed with RN 5: No acute events overnight. Patient seen examined bedside. Patient confused about what she needs to do for her medical management. She does not follow closely with any primary doctor. Urology evaluated and recommended continuing indwelling Stevenson catheter and no surgical management at this time. Patient may need voiding trial before discharge as she does not have good follow with any primary physician. Hemoglobin today is at 7.6 after 2 units PRBC. No obvious sources of bleeding. Anemia likely related to iron deficiency anemia. Patient will need SNF placement. Patient's chart, labs, images were reviewed and discussed with RN 5/8: Evaluated examined at bedside. Patient reported she was feeling "bad." Said she felt very "crunched up in her bed." Offered to help her boost up she declined. Declining many interventions. Creatinine a little bit improved renal sent from yesterday showing left hydronephrosis unable to visualize right kidney we will consult interventional radiology to see if neph tubes are an option. Nephrology recommendations reviewed. Continue antibiotics for pneumonia and UTI. 11/04: No acute events overnight. Patient seen examined bedside. AF and VSS still feels about the same. Hemoglobin stable at 7.5. Creatinine improving to 1.6 from 2.0. Stevenson catheter still in place. Magnesium 1.7 replace with IV magnesium sulfate. Patient's chart, labs, images were reviewed and discussed with RN Vitals/I&O Vitals/I&O: Vital Signs Date Time Temp Pulse Resp B/P (MAP) Pulse Ox O2 Delivery O2 Flow Rate FiO2 11/14/21 11:00 97.8 72 18 125/68 (87) 96 Room Air 97.8 Physical Exam General: Alert, Oriented X3, Cooperative, No acute distress Heart: Regular rate, Normal S1, Normal S2, No murmurs Lungs: Clear Abdomen: Normal bowel sounds, Soft, No tenderness, No hepatosplenomegaly, No masses Extremities: No clubbing, No cyanosis, No edema, Normal pulses, No tenderness/swelling Skin: No rashes, No breakdown Labs Labs: Laboratory Tests Test 11/14/21 08:35 Sodium Level 142 mmol/L (136-145) Potassium Level 4.9 mmol/L (3.5-5.1) Chloride Level 110 mmol/L (98-107) Carbon Dioxide Level 20 mmol/L (21-32) Anion Gap 12 (6-14) Blood Urea Nitrogen 44 mg/dL (7-20) Creatinine 1.4 mg/dL (0.6-1.0) Estimated GFR (Cockcroft-Gault) 37.1 Glucose Level 82 mg/dL (70-99) Calcium Level 8.9 mg/dL (8.5-10.1) Assessment and Plan Assessmemt and Plan Problems Medical Problems: (1) Acute renal injury Status: Acute (2) Anemia Status: Acute (3) Failure to thrive in adult Status: Acute (4) Weakness generalized Status: Acute Comment Review of Relevant I have reviewed the following items jyoti (where applicable) has been applied. Justifications for Admission Other Justification ALMA MCCABE MD November 14, 2021 14:52
[2021-11-14 15:00] VITALS: BP 117/60
[2021-11-14 19:00] VITALS: BP 107/60
[2021-11-14] MEDS: PSYLLIUM HUSK (SUGAR FREE) 1 PKT PACKET PO SCH (20:49)
[2021-11-15 03:00] VITALS: BP 112/60
[2021-11-15] MEDS: oxyCODONE/APAP 5/325 1 TAB TABLET PO PRN (03:35)
[2021-11-15] MEDS: IV NORMAL SALINE 1000ML BAG 1,000 ML IV SCH (05:55)
[2021-11-15 07:00] VITALS: BP 111/66
[2021-11-15] MEDS: SENNOSIDES/DOCUSATE 8.6/50MG TABLET. PO SCH (09:20)
[2021-11-15] MEDS: PANTOPRAZOLE 40 MG TABLET.DR. PO SCH (09:20)
[2021-11-15] MEDS: ASCORBIC ACID 1,000 MG TABLET PO SCH (09:20)
[2021-11-15] MEDS: MULTIVITAMIN with MINERAL TABLET. PO SCH (09:20)
[2021-11-15] MEDS: LACTOBACILLUS RHAMNOSUS GG 1 CAPSULE. PO SCH (09:21)
--- NOTE | 2021-11-15 09:22 | PDOC ---
Date of Service: DATE: 11/15/21 TIME: 09:20 Subjective: Subjective: "About the same." Objective: Vital Signs: Vital Signs Date Time Temp Pulse Resp B/P (MAP) Pulse Ox O2 Delivery O2 Flow Rate FiO2 11/15/21 07:00 97.5 60 16 111/66 (81) 95 97.5 11/15/21 04:05 Room Air PE: GEN: NAD LUNGS: CTAB HEART: RRR ABD: S/ND/NT NEURO/PSYCH: A & O 3, flat A/P: CLAUDIA, pelvic organ prolapse Urinary retention, CHRISTIANO -- Stable from GI standpoint. Awaiting discharge plans. Continue iron and PPI, laxatives as needed, plan for outpt scopes. Justicifation of Admission Dx: Justifications for Admission: Justification of Admission Dx: N/A WILLIAM DUARTE November 15, 2021 09:22
[2021-11-15] MEDS: ACETAMINOPHEN 325 MG TABLET. PO PRN (09:29)
[2021-11-15] MEDS ORDERED: PSYL3.4P PO (09:48)
[2021-11-15] MEDS ORDERED: FERR325T72 PO (09:48)
[2021-11-15] MEDS ORDERED: OXYC1TAB15 PO (09:48)
[2021-11-15] MEDS ORDERED: PANT40TA77 PO (09:48)
--- NOTE | 2021-11-15 09:49 | SNU/HH DC ---
DISCHARGE ORDERS DISCHARGE INFORMATION: DISCHARGE DATE: November 15, 2021 FINAL DIAGNOSIS Problems Medical Problems: (1) Acute renal injury Status: Acute (2) Anemia Status: Acute (3) Failure to thrive in adult Status: Acute (4) Weakness generalized Status: Acute CONDITION ON DISCHARGE: Stable CODE STATUS: Code Status: Full HALFWAY: SNF STAY <30 DAYS: Yes POST DISCHARGE ORDERS: ACTIVITY ORDERS: Activity as tolerated WEIGHT BEARING STATUS: As tolerated DIET AFTER DISCHARGE: Regular FOLLOW-UP: PHYSICIAN FOLLOW-UP: Establish PCP [facility] ADDITIONAL FOLLOW-UP: Gynecology for your uterine prolapse TREATMENT/EQUIPMENT ORDERS: Physical Therapy For: Evalulation/Treatment Occupational Therapy For: Evaluation/Treatment DISCHARGE MEDICATIONS: Home Meds Active Scripts Oxycodone/Apap 5-325 (PERCOCET 5-325 MG TABLET ) 1 Each Tablet, 1 TAB PO PRN Q4HRS PRN for MODERATE/SEVERE PAIN for 5 Days, #15 TAB Prov:ALMA MCCABE MD 11/15/21 Psyllium Husk/Aspartame (METAMUCIL FIBER SINGLES PACKET) 3.4 Gm Powd.pack, 1 PKT PO QHS for constipation for 30 Days, #30 PKT Prov:ALMA MCCABE MD 11/15/21 Pantoprazole Sodium (PANTOPRAZOLE SODIUM ) 40 Mg Tablet.dr, 40 MG PO DAILYAC for gerd for 30 Days, #30 TAB.SR Prov:ALMA MCCABE MD 11/15/21 Ferrous Sulfate (FEOSOL) 325 Mg Tablet, 325 MG PO DAILYWBKFT for toni for 30 Days, #30 TAB Prov:ALMA MCCABE MD 11/15/21 Sennosides/Docusate Sodium (Stool Softener-Stimulant Lax) 1 Each Tablet, 1 TAB PO BID for constipation for 30 Days, #60 TAB 2 Refills Prov:BEE OLIVEROS MD 11/12/21 Ascorbic Acid (VITAMIN C) 1,000 Mg Tablet, 1000 MG PO DAILY for supplement for 30 Days, #30 TAB 2 Refills Prov:BEE OLIVEROS MD 11/12/21 Multivits,Ca,Minerals/Iron/Fa (THERA-M TABLET) 1 Each Tablet, 1 TAB PO DAILY for supplement for 30 Days, #30 TAB 2 Refills Prov:BEE OLIVEROS MD 11/12/21 Doxycycline Hyclate (DOXYCYCLINE HYCLATE) 100 Mg Tablet, 100 MG PO BID for pneumonia for 3 Days, #6 TAB Prov:BEE OLIVEROS MD 11/12/21 Cefdinir (CEFDINIR) 300 Mg Capsule, 300 MG PO BID for uti for 3 Days, #6 CAP Prov:BEE OLIVEROS MD 11/12/21 Discontinued Reported Medications Ibuprofen/Acetaminophen (Advil Dual Action 250Mg-125Mg) 1 Each Tablet, 1 EACH PO TID PRN PRN for PAIN, TAB 11/04/21 ALMA MCCABE MD November 15, 2021 09:49
[2021-11-15] MEDS ORDERED: FERROUS SULFATE 325 MG TABLET. PO SCH (10:00)
[2021-11-15 11:00] VITALS: BP 100/55
--- NOTE | 2021-11-15 11:29 | PDOC ---
Renal-Progress Notes Subjective Notes Notes NO NEW COMPLAINTS History of Present Illness Hx of present illness STABLE Vitals Vitals Vital Signs Date Time Temp Pulse Resp B/P (MAP) Pulse Ox O2 Delivery O2 Flow Rate FiO2 11/15/21 07:00 97.5 60 16 111/66 (81) 95 97.5 11/15/21 04:05 Room Air Weight Weight [ ] I.O. Intake and Output Intake and Output 11/15/21 07:00 Intake Total 975 ml Output Total 0 ml Balance 975 ml IV Total 975 ml Output Urine Total 0 ml # Voids 2 Micro Micro Microbiology 11/05/21 Urine Culture - Final, Complete 11/03/21 Blood Culture - Final, Complete NO GROWTH AFTER 5 DAYS Review of Systems Constitutional: yes: alert, oriented Ears/Nose/Throat: Yes: no symptom reported Eyes: Yes: no symptom reported Pulmonary: Yes no symptom reported Cardiovascular: Yes no symptom reported Gastrointestional: Yes: no symptom reported Genitourinary: Yes: incontinence Musculoskeletal: Yes: muscle atrophy Skin: Yes no symptom reported Psychiatric/Neurological: Yes: no symptom reported Endocrine: Yes: no symptom reported Physical Exam General Appearance: no apparent distress Skin: warm Respiratory: decreased breath sounds Heart: S1S2 Abdomen: soft, bowel sounds present Genitourinary: bladder flat Extremities: pulses present Neurology: alert, oriented Assessment Assessment IMP URINARY RETENTION-DECOMPRESSED BLADDER BILATERAL HYDRONEPHROSIS DUE TO ABOVE CHRISTIANO-CR DOWN TO 1.4 FROM 2.4 HYPERKALEMIA-CORRECTED UTERINE PROLAPSE IRON DEFICIENCY ANEMIA SEVERE DECONDITIONING PLAN STOP IVF UROLOGY FOLLOWING MAINTAIN SMITH LEAD LOADER FOLLOWING SNU PENDING WILL FOLLOW ATIF JEFFERS MD November 15, 2021 11:29
--- NOTE | 2021-11-15 13:07 | NUR ---
SS following up with discharge planning. SS reviewed pt chart and discussed with RN. Pt is currently on room air. COVID19 negative. PT/OT recommended [facility] unit. Pt accepted at [facility] pending insurance approval. Discharge orders and clinical updates sent to [facility]. SS will continue to follow for discharge planning. Addendum: 11/15/21 at 1401 by ARCHANA ALSTON Insurance authorization received. Pt will discharge today and go to [facility] at 1600. Pt and pt's RN notified.
[2021-11-15 15:00] VITALS: BP 102/59
--- NOTE | 2021-11-15 15:01 | NUR ---
Wound/Ostomy Care Wound Type/Assessment: Patient seen per wound care consult. Patient is very well known to us from the clinic as her son has been a assisted patient of ours for years. Patient has a stage III PU to the lower back that are now healed. Surprisingly the patient does not have more wounds than this considering her physical condition. Wound cleansed and assessed. Treatment Recommendations/Plan: Recommendations to skin prep and foam dressing for protection. Change every 3 days. Patient needs to minimize pressure to problem areas, and turn Q2 using wedge. Education provided: Patient educated on wound care, PU treatment and prevention, POC, and lifestyle changes. Offloading surface/device: Patient using wedge, pillows for offloading Recommended Referrals/Tests: Patient to discharge today to [facility]. Discharge Recommendations for dressings: Bed lowered and call light in reach. Wound care will continue to follow up while inpatient. Patient scheduled to discharge today.
--- NOTE | 2021-11-15 17:01 | PDOC3 ---
[facility]-Discharge Summary Date of Admission: Date of Admission: November 03, 2021 Date of Discharge: Date of Discharge: November 15, 2021 Admission Diagnosis: Admitting Diagnosis: FTT, anemia, ARF Consults: Consults: GI, neprology Hospital Course: Hospital Course: hief Complaint Uterine prolapse Right-sided pneumonia likely bacterial gram-negative possible aspiration Microcytic anemia due to TONI adult failure to thrive, CHRISTIANO likely obstructive uropathy Bilateral hydronephrosis Acute on chronic urinary retention severe protein malnutrition reported history of scoliosis Right asymptomatic hepatic cyst greater than 4 cm Urinary retentionresolved Mild hyperkalemia Gynecology consulted for uterine prolapse and recommended nonsurgical management GI consult for anemia and hepatic cysts We will start IV iron infusion today and consider outpatient iron supplement replacement Trend hemoglobin Appreciate nephrology Recs Urology consultedno surgical intervention at this time. Continue indwelling Stevenson and possible voiding trial before discharge -PT/OT -Nutrition consult -DVT prophylaxis -Rocephin Doxy for presumed pneumonia.and UTI History of Present Illness History of Present Illness 11/15 Patient evaluated examined at bedside. Insurance approved placement. Discharge today. Greater than 30 minutes spent on discharge. 11/14 Seen at bedside. Patient remained stable. [facility] Can discharge anytime at this point. 11/13 Patient seen and examined at bedside. Working on placement options. Difficult social situation. Medically stable. Consult recommendations reviewed. Continue current that regard. 11/12/2021 No acute events overnight. Patient seen examined bedside. AF and VSS. Potassium normalized after fluids. Creatinine stable at 1.4 and improved compared to admission. Patient is medically stable for discharge. Attempted to speak to the patient about discharge about going home, however she feels circumstances are unsafe due to weather and patient unable to get to the front door. We have explained and verbalized to her that [facility]PS has already been contacted and they are unwilling to change her current home situation. [facility] hospice has evaluated the patient and they determined that the patient is unsafe for any evaluation or in-home visits. [facility] also evaluated patient there and there is no documentation of the visit however nurse of this patient has stated that [facility] will reevaluate on Saturday. At this point I am waiting for the patient to call her son to let him know that skilled nursi facility would be the best option for her and that she can choose any nursing facility that works best with her son who has mental health issues and also for logistics reasons. I would recommend to have social sciences chair talk with the patient and see which facilities with a at least consider so that at least we can get the process started. Patient's chart, labs, images were reviewed and discussed with RN 11/11/2021 No acute events overnight. Patient seen examined bedside. Creatinine stable at 1.5. Some hyperkalemia 5.6 likely related to multiple bowel regimen doses. Will observe closely. Hospice has evaluated and declined home with hospice mainly due to safety issues at home where the nurses unable to safely do any home visits. Patient's chart, labs, images were reviewed and discussed with RN 11/10/2021 No acute events overnight. Patient seen examined bedside. Creatinine 1.5 today. Potassium of 4.8. No bowel movement reported since November 03, 2021. Aggressive bowel regimen initiated. Patient currently refusing suppository. Stevenson catheter placed for urinary retention. Based off discussion with Dr. Campos yesterday with the patient patient just wants to go home and . Discussion with social work states that [facility]PS and home health will likely unable t o visit the patient because of safety issues in the home. It seems as if the pictures are drawn by several observers which includes the neighbor, APS, social work seems to paint a picture of an unsafe place for discharge. Because of this patient has stated she does not want to do much for her ailments. I will get hospice evaluation to provide all options for the patient before discharging the patient to an environment that is unethical and inhumane from my standpoint. If the patient wishes for her quality life for what ever living condition she wishes then we will have to respect that, but I do not want to proceed with letting her have that autonomy unless I have a some type of palliative care evaluation. 11/09: Potassium elevated at 5.2 and CR 1.5. Stevenson catheter is out. 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 She still very weak depressed focusing on diet and the menu and is a little difficult to redirect about her unsafe home living situation and discussed the fact that there is offer for her home to be renovated but she and her son will be to move out temporarily she is reaching out to her sister today to help with this so that she has stable housing and she would be amenable to going to skilled rehab but she does not feel like she has the energy to follow through with doing this and is contemplating wanting "to go home and just ." 11/07: No acute events overnight. Patient seen examined bedside. Hemoglobin stable 7.7. Patient feels about the same since that time of admission. Urology following and appreciate the recommendations. Plan for voiding trial in the morning. Her creatinine has also improved to 1.6. PT OT has recommended senior living. I have discussed with the patient and encouraged her for senior living facility however, patient wants to go home because she has a disabled son and she needs to take care of him. Apparently, neighbor has contacted [facility] and a file has been opened and social sciences chair had discussion with Danilo Michele, please see social workers note for details. In summary from that conversation, APS had gone to their home and the patient was alert and oriented but [facility]PS cannot force change. I believe there is some internal conflict for the patient as the patient does want to go home to be with her son but she also knows that if she does go home she may not be able to take care of her self. Patient will verbalize that she is fine and she is able to take care of her son and herself, however reports from the neighbor and APS is that the condition of the home are not livable. I.e., there is no running water and patient was found at home and her urine and feces. Anticipate for discharge tomorrow after voiding trial and IV iron infusion today. Will trend hemoglobin and continue antibiotics at time of discharge. Patient's chart, labs, images were reviewed and discussed with RN 5/9: No acute events overnight. Patient seen examined bedside. Patient confused about what she needs to do for her medical management. She does not follow closely with any primary doctor. Urology evaluated and recommended continuing indwelling Stevenson catheter and no surgical management at this time. Patient may need voiding trial before discharge as she does not have good follow with any primary physician. Hemoglobin today is at 7.6 after 2 units PRBC. No obvious sources of bleeding. Anemia likely related to iron deficiency anemia. Patient will need SNF placement. Patient's chart, labs, images were reviewed and discussed with RN 5/8: Evaluated examined at bedside. Patient reported she was feeling "bad." Said she felt very "crunched up in her bed." Offered to help her boost up she declined. Declining many interventions. Creatinine a little bit improved renal sent from yesterday showing left hydronephrosis unable to visualize right kidney we will consult interventional radiology to see if neph tubes are an option. Nephrology recommendations reviewed. Continue antibiotics for pneumonia and UTI. 11/04: No acute events overnight. Patient seen examined bedside. AF and VSS still feels about the same. Hemoglobin stable at 7.5. Creatinine improving to 1.6 from 2.0. Stevenson catheter still in place. Magnesium 1.7 replace with IV magnesium sulfate. Patient's chart, labs, images were reviewed and discussed with RN Disposition: Disposition/Orders: D/C to Another Facility Activity: Activity: Resume previous activity Diet: Diet: Cardiac Medications: Home Meds Active Scripts Oxycodone/Apap 5-325 (PERCOCET 5-325 MG TABLET ) 1 Each Tablet, 1 TAB PO PRN Q4HRS PRN for MODERATE/SEVERE PAIN for 5 Days, #15 TAB Prov:ALMA MCCABE MD 11/15/21 Psyllium Husk/Aspartame (METAMUCIL FIBER SINGLES PACKET) 3.4 Gm Powd.pack, 1 PKT PO QHS for constipation for 30 Days, #30 PKT Prov:ALMA MCCABE MD 11/15/21 Pantoprazole Sodium (PANTOPRAZOLE SODIUM ) 40 Mg Tablet.dr, 40 MG PO DAILYAC for gerd for 30 Days, #30 TAB.SR Prov:ALMA MCCABE MD 11/15/21 Ferrous Sulfate (FEOSOL) 325 Mg Tablet, 325 MG PO DAILYWBKFT for toni for 30 Da ys, #30 TAB Prov:ALMA MCCABE MD 11/15/21 Sennosides/Docusate Sodium (Stool Softener-Stimulant Lax) 1 Each Tablet, 1 TAB PO BID for constipation for 30 Days, #60 TAB 2 Refills Prov:BEE OLIVEROS MD 11/12/21 Ascorbic Acid (VITAMIN C) 1,000 Mg Tablet, 1000 MG PO DAILY for supplement for 30 Days, #30 TAB 2 Refills Prov:BEE OLIVEROS MD 11/12/21 Multivits,Ca,Minerals/Iron/Fa (THERA-M TABLET) 1 Each Tablet, 1 TAB PO DAILY for supplement for 30 Days, #30 TAB 2 Refills Prov:BEE OLIVEROS MD 11/12/21 Doxycycline Hyclate (DOXYCYCLINE HYCLATE) 100 Mg Tablet, 100 MG PO BID for pneumonia for 3 Days, #6 TAB Prov:BEE OLIVEROS MD 11/12/21 Cefdinir (CEFDINIR) 300 Mg Capsule, 300 MG PO BID for uti for 3 Days, #6 CAP Prov:BEE OLIVEROS MD 11/12/21 Discontinued Reported Medications Ibuprofen/Acetaminophen (Advil Dual Action 250Mg-125Mg) 1 Each Tablet, 1 EACH PO TID PRN PRN for PAIN, TAB 11/04/21 Scheduled Ascorbic Acid (Vitamin C), 1,000 MG PO DAILY Cefdinir (Cefdinir), 300 MG PO BID Doxycycline Hyclate (Doxycycline Hyclate), 100 MG PO BID Ferrous Sulfate (Feosol), 325 MG PO DAILYWBKFT Multivits,Ca,Minerals/Iron/Fa (Thera-M Tablet), 1 TAB PO DAILY Pantoprazole Sodium (Pantoprazole Sodium ), 40 MG PO DAILYAC Psyllium Husk/Aspartame (Metamucil Fiber Singles Packet), 1 PKT PO QHS Sennosides/Docusate Sodium (Stool Softener-Stimulant Lax), 1 TAB PO BID Scheduled PRN Oxycodone/Apap 5-325 (Percocet 5-325 Mg Tablet ), 1 TAB PO PRN Q4HRS PRN for MODERATE/SEVERE PAIN Discontinued Medications Ibuprofen/Acetaminophen (Advil Dual Action 250Mg-125Mg), 1 EACH PO TID PRN PRN for PAIN, (Reported) Justicifation of Admission Dx: Justifications for Admission: Justification of Admission Dx: N/A ALMA MCCABE MD November 15, 2021 17:01
--- NOTE | 2021-11-15 17:13 | NUR ---
Discharge Note: [facility] Discharge instructions and discharge home medications reviewed with [facility] at [facility] and a copy given. All questions have been answered and understanding verbalized. The following instructions and handouts were given: worsening symptoms, medications, plan of care. Discontinued lines and drains: IV discontinued from L forearm, patient tolerated well, telemetry removed, and pressure ulcer to lower back cleansed and assessed by wound care prior to discharge, all other wounds healed. Patient discharged to [facility] with [facility] transportation via wheelchair.
== END 2021-11-15 16:19 | DRG 177 ==
LOC: ER 19:45 → 5 NORTH 21:50
PROVIDERS: ADMIT Family Medicine; ATTEND Family Medicine
PROC: 30233N1 Transfusion of Nonautologous Red Blood Cells into Peripheral Vein, Percutaneous Approach (ICD-10-PCS; principal; 2021-11-03)
DX: J69.0 Pneumonitis due to inhalation of food and vomit (principal); E43 Unspecified severe protein-calorie malnutrition; J90 Pleural effusion, not elsewhere classified; N13.6 Pyonephrosis; R18.8 Other ascites; N17.8 Other acute kidney failure; N81.4 Uterovaginal prolapse, unspecified; R62.7 Adult failure to thrive; D50.9 Iron deficiency anemia, unspecified; E86.9 Volume depletion, unspecified; E87.5 Hyperkalemia; E88.09 Other disorders of plasma-protein metabolism, not elsewhere classified; K44.9 Diaphragmatic hernia without obstruction or gangrene; K57.30 Diverticulosis of large intestine without perforation or abscess without bleeding; K59.00 Constipation, unspecified; K76.89 Other specified diseases of liver; L89.90 Pressure ulcer of unspecified site, unspecified stage; M41.9 Scoliosis, unspecified; Z82.3 Family history of stroke; M19.90 Unspecified osteoarthritis, unspecified site; Z68.23 Body mass index [BMI] 23.0-23.9, adult; J15.6 Pneumonia due to other Gram-negative bacteria; N13.9 Obstructive and reflux uropathy, unspecified
CPT/HCPCS: 36415; 36430; 70450; 71045; 74176; 76770; 80048; 80053; 80069; 81001; 82550; 82728; 83540; 83550; 83605; 83735; 83880; 84484; 85014; 85018; 85025; 85610; 86850; 86900; 86901; 86920; 87040; 87086; 93005; 96360; 96361; A4314; J0696; J1756; J2405; J3475; J7030; J7050; P9016; P9046; U0003; 97110-GP; 97116-GP; 97530-GO; 97530-GP; 97535-GO; 99285-25; G0378